=== PATIENT | male | born 1940 | race Hispanic/Latino ===

== ENCOUNTER 2018-05-14 12:26 | Inpatient (IN) | payer MEDICARE, BC ==
[2018-05-14] MEDS ORDERED: Sodium Chloride 0.9% 1,000 ML IV STA (13:33)
--- NOTE | 2018-05-14 13:51 | ED PDOC ---
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 Patient's so n reports that he found him this morning sleeping on the floor because he fell, hitting his head, and was unable to get up. Patient is only complaining of back pain. He does not use a wheelchair and has limited mobility. Patient is not on oxygen at home. PMD: Dr. Dorado in [facility] Neuro: Dr. Dixon - Fall Fall:Prior To Injury: Tripped Past Medical History Reviewed: Historical Data, Nursing Documentation, Vital Signs Vital Signs: Last Vital Signs Temp 99.9 F H 05/14/18 12:28 Pulse 114 H 05/14/18 12:28 Resp 16 05/14/18 12:28 BP 115/69 05/14/18 12:28 Pulse Ox 97 05/14/18 12:28 - Medical History PMH: Alzheimer's Disease, Dementia, Sleep Apnea - Surgical History Surgical History: No Surg Hx - Family History Family History: States: No Known Family Hx - Immunization History Hx Tetanus Toxoid Vaccination: No Hx Influenza Vaccination: No Hx Pneumococcal Vaccination: No - Home Medications Home Medications: Ambulatory Orders Medication Instructions Recorded Aspirin [Ecotrin] 325 mg PO DAILY 05/14/18 Donepezil [Aricept] 10 mg PO DAILY 05/14/18 Dutasteride [Avodart] 0.5 mg PO DAILY 05/14/18 Lisinopril [Zestril] 10 mg PO DAILY 05/14/18 Melatonin 5 mg PO HS 05/14/18 Memantine [Namenda] 10 mg PO Q12 05/14/18 Oxybutynin Chloride [Ditropan Xl] 5 mg PO DAILY 05/14/18 Simvastatin [Zocor] 40 mg PO HS 05/14/18 - Allergies Allergies/Adverse Reactions: Allergies Allergy/AdvReac Type Severity Reaction Status Date / Time No Known Allergies Allergy Verified 05/14/18 12:28 Review of Systems ROS Statement: Except As Marked, All Systems Reviewed And Found Negative Musculoskeletal: Positive for: Back Pain, Foot Pain (wound to left toe) Physical Exam - Reviewed Nursing Documentation Reviewed: Yes Vital Signs Reviewed: Yes - Physical Exam Appears: Positive for: No Acute Distress Head Exam: Positive for: ATRAUMATIC, NORMAL INSPECTION, NORMOCEPHALIC Skin: Positive for: Warm, Dry Eye Exam: Positive for: EOMI, PERRL, Other (discharge from left eye) Neck: Positive for: Supple, Decreased ROM (tenderness to spine). Negative for: Painless ROM Cardiovascular/Chest: Positive for: Regular Rate, Rhythm, Tachycardia (regular rhythm). Negative for: Murmur Respiratory: Positive for: Normal Breath Sounds. Negative for: Respiratory Distress Gastrointestinal/Abdominal: Positive for: Normal Exam, Soft. 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 Negative for: Motor/Sensory Deficits - Laboratory Results Result Diagrams: 05/19/18 05:10 05/19/18 05:10 - ECG O2 Sat by Pulse Oximetry: 97 (RA) Pulse Ox Interpretation: Normal Medical Decision Making Medical Decision Makin:32 Impression: fall, head injury, possible syncope Differential dxs include but are not limited to: intracranial bleeding, rhabdomyolysis, fracture, dehydration, OLIMPIA Initial Plan: --VBG --CT C-spine --CT Head --CT L-spine --EKG --BNP --BMP --CBC --Creatinine --Troponin --Urine dip --PT --PTT --CXR --NS IV 1,000 mls --Blood cx --Bilateral hip x-rays --Influenza AB --Urinary straight catheterization [address] head and cervical spine. Reviewed CXR and labs. 1620 Patient requires admission for multiple comorbidities and acute conditions: syncope and CHF for telemetry, rhabdomyolisis for IVF, cellulitis with sepsis for IV antibiotics. Scribe Attestation: Documented by Irene Raygoza, acting as a scribe Bakari Vargas MD Provider Scribe Attestation: All medical record entries made by the Scribe were at my direction and personally dictated by me. I have reviewed the chart and agree that the record accurately reflects my personal performance of the history, physical exam, medical decision making, and the department course for this patient. I have also personally directed, reviewed, and agree with the discharge instructions and disposition Disposition - Clinical Impression Clinical Impression: Syncope, CHF (congestive heart failure), Cellulitis, Rhabdomyolysis, Sepsis - Patient ED Disposition Is Patient to be Admitted: No Discussed With DrFransisco: Pk Ross Doctor Will See Patient In The: Hospital Counseled Patient/Family Regarding: Studies Performed, Diagnosis - Disposition Disposition Time: 16:20 Condition: FAIR - Pt Status Changed To: Hospital Disposition Of: Inpatient - Admit Certification Admit to Inpatient:: After my assessment, the patient will require hospitalization for at least two midnights. This is because of the severity of symptoms shown, intensity of services needed, and/or the medical risk in this patient being treated as an outpatient. - POA Present On Arrival: Falls Or Trauma, Pressure Ulcer
[2018-05-14 14:09] LABS: BASO # 0.1 K/uL (0.0-0.2); BASO % 0.7 % (0.0-2.0); EOS % 0.1 % (0.0-4.0); HEMOGLOBIN 14.2 g/dL (12.0-18.0); LYMPH # 2.6 K/uL (1.0-4.3); LYMPH % 14.1 % (20.0-40.0); MEAN CELL VOLUME 88.5 fl (80.0-94.0); MEAN CORPUSCULAR HEMOGLOBIN 29.2 pg (27.0-31.0); MEAN PLATELET VOLUME 8.5 fl (7.2-11.7); MONO # 0.8 K/uL (0.0-0.8); MONO % 4.4 % (0.0-10.0); NEUT # 14.8 K/uL (1.8-7.0); NEUT % 80.7 % (50.0-75.0); RBC 4.84 Mil/uL (4.40-5.90); RED CELL DISTRIBUTION WIDTH 14.6 % (11.5-14.5); WHITE BLOOD COUNT 18.3 K/uL (4.8-10.8)
[2018-05-14 14:18] LABS: VENOUS BLOOD GAS BASE EXCESS 2.3 mmol/L (0.0-2.0); VENOUS BLOOD GAS PCO2 39 mmHg (40-60); VENOUS BLOOD GAS PO2 33 mm/Hg (30-55); VENOUS BLOOD PH 7.44 (7.32-7.43)
[2018-05-14 14:19] LABS: BLOOD UREA NITROGEN 28 mg/dl (9-20); CALCIUM 8.8 mg/dL (8.4-10.2); GFR NON-AFRICAN AMERICAN 59
[2018-05-14 14:28] LABS: INR 1.3; PROTHROMBIN TIME 14.6 Seconds (9.8-13.1)
[2018-05-14 14:30] LABS: PARTIAL THROMBOPLASTIN TIME 37.7 Seconds (25.6-37.1)
[2018-05-14 14:31] LABS: B-TYPE NATRIURETIC PEPTIDE 5080 pg/ml (0-900)
--- NOTE | 2018-05-14 14:51 | RAD ---
Date of service: 05/14/2018 HISTORY: hypoxic COMPARISON: 04/29/2009. FINDINGS: LUNGS: There are low lung volumes. There is mild pulmonary venous congestion. PLEURA: No pleural effusions or pneumothorax. CARDIOVASCULAR: There is moderate cardiomegaly. No aortic atherosclerotic calcifications present. OSSEOUS STRUCTURES: Within normal limits for the patient's age. VISUALIZED UPPER ABDOMEN: Normal. OTHER FINDINGS: There is chronic elevation of the right hemidiaphragm. IMPRESSION: No active pulmonary disease. Low lung volumes may be related to poor inspiratory effort. Moderate cardiomegaly and pulmonary venous congestion.
--- NOTE | 2018-05-14 14:53 | RAD ---
PROCEDURE: Radiographs of the pelvis and bilateral hips HISTORY: fall back pain COMPARISON: None. TECHNIQUE: 2 views obtained. FINDINGS: BONES: The pelvic ring is intact. There is diffuse bone demineralization. There is no acute fracture or bone destruction. Bone alignment is normal. JOINTS: Mild degenerative osteoarthrosis in the hip joints and sacroiliac joints. There is mild osteitis pubis. SOFT TISSUES: Normal. OTHER FINDINGS: None. IMPRESSION: No acute displaced fracture or dislocation. Please note occult fractures cannot be excluded on plain radiographs. If there is a persistent clinical concern, an MRI of the hip may be performed for further evaluation.
--- NOTE | 2018-05-14 15:24 | CARD ---
APPROVED REPORT Date of service: 05/14/2018 EKG Measurement Heart [id number] <Conclusion> Sinus rhythm with premature atrial complexes Possible Inferior infarct, age undetermined Abnormal ECG
--- NOTE | 2018-05-14 15:32 | CT ---
Date of service: 05/14/2018 PROCEDURE: CT HEAD WITHOUT CONTRAST. HISTORY: head injury COMPARISON: None available. TECHNIQUE: Axial computed tomography images were obtained through the head/brain without intravenous contrast. Supplemental Coronal and Sagittal projections created and reviewed. Radiation dose: Total exam DLP = 897.93 mGy-cm. This CT exam was performed using one or more of the following dose reduction techniques: Automated exposure control, adjustment of the mA and/or kV according to patient size, and/or use of iterative reconstruction technique. FINDINGS: HEMORRHAGE: No intracranial hemorrhage. BRAIN: No mass effect or edema. Evidence of old left frontal parietal infarct with ipsilateral ventricular dilatation. Periventricular small these noted. VENTRICLES: Unremarkable. No hydrocephalus. CALVARIUM: Unremarkable. PARANASAL SINUSES: Unremarkable as visualized. No significant inflammatory changes. MASTOID AIR CELLS: Unremarkable as visualized. No inflammatory changes. OTHER FINDINGS: Calcified sebaceous cyst. An incidental finding. IMPRESSION: No acute intracranial abnormalities. No significant findings to account for the clinical presentation. Additional benign and/or incidental findings described above.
--- NOTE | 2018-05-14 15:36 | CT ---
Date of service: 05/14/2018 PROCEDURE: CT Cervical Spine without contrast HISTORY: Posttraumatic neck pain COMPARISON: None available. TECHNIQUE: Axial computed tomography images were obtained of the cervical spine without the use of intravenous contrast. Coronal and sagittal reformatted images were created and reviewed. Radiation dose: Total exam DLP = 343.72 mGy-cm. This CT exam was performed using one or more of the following dose reduction techniques: Automated exposure control, adjustment of the mA and/or kV according to patient size, and/or use of iterative reconstruction technique. FINDINGS: VERTEBRAE: No fracture. Normal alignment. No destructive bony lesion. DISCS/SPINAL CANAL/NEURAL FORAMINA: No significant central canal or neural foraminal stenosis. Multilevel degenerative change. No evidence of jumped or locked facet. PARASPINAL SOFT TISSUES: Unremarkable. OTHER FINDINGS: None. IMPRESSION: No acute findings related to/ accounting for the clinical presentation. Additional benign and/or incidental findings described above.
--- NOTE | 2018-05-14 15:39 | CT ---
Date of service: 05/14/2018 PROCEDURE: CT Lumbar Spine without contrast HISTORY: Posttraumatic low back pain. COMPARISON: None available. TECHNIQUE: Axial computed tomography images were obtained of the lumbar spine without the use of intravenous contrast. Coronal and sagittal reformatted images were created and reviewed. Radiation dose: Total exam DLP = 1378.97 mGy-cm. This CT exam was performed using one or more of the following dose reduction techniques: Automated exposure control, adjustment of the mA and/or kV according to patient size, and/or use of iterative reconstruction technique. FINDINGS: VERTEBRAE: Diffuse osteopenia. No fracture. Normal alignment. DISCS/SPINAL CANAL/NEURAL FORAMINA: L1-2: Unremarkable. L2-3: Unremarkable. L3-4: Unremarkable. L4-5: Unremarkable. L5-S1: Unremarkable. PARASPINAL SOFT TISSUES: Unremarkable. OTHER FINDINGS: Calcified nonaneurysmal abdominal aorta. IMPRESSION: No acute findings related to/ accounting for the clinical presentation.
[2018-05-14] MEDS ORDERED: Piperacillin/Tazobact 3.375 GM in Sodium Chloride 0.9% 100 ML IVPB STA (16:20)
[2018-05-14] MEDS ORDERED: Piperacillin/Tazobact 3.375 gm Inj IVPB ONE (16:34)
[2018-05-14] MEDS ORDERED: Pneumococcal 23-Valent Vaccine IM ONE (22:29)
[2018-05-15] MEDS: Levalbuterol 0.63 MG/3 ML Inhal Soln UD INH PRN (00:44)
[2018-05-15 05:26] LABS: HEMOGLOBIN 12.8 g/dL (12.0-18.0); MEAN CORPUSCULAR HEMOGLOBIN 28.9 pg (27.0-31.0); MEAN CORPUSCULAR HGB CONC 32.1 g/dL (33.0-37.0); RBC 4.44 Mil/uL (4.40-5.90); RED CELL DISTRIBUTION WIDTH 14.9 % (11.5-14.5); WHITE BLOOD COUNT 16.5 K/uL (4.8-10.8)
[2018-05-15 05:34] LABS: ALB/GLOB RATIO 0.9 (1.0-2.1); ALBUMIN 3.2 g/dL (3.5-5.0); ALT/SGPT 29 U/L (21-72); AST/SGOT 64 U/L (17-59); BLOOD UREA NITROGEN 32 mg/dl (9-20); CALCIUM 8.5 mg/dL (8.4-10.2); GFR NON-AFRICAN AMERICAN > 60; HDL CHOLESTEROL 31 MG/DL (30-70)
[2018-05-15 05:45] LABS: LDL CHOLESTEROL 37 mg/dL (0-129)
--- NOTE | 2018-05-15 06:21 | CP.PCM.HP ---
<Bhanu Bazan - Last Filed: 05/15/18 12:57> History of Present Illness - History of Present Illness History of Present Illness: Pt seen and examined at bedside with attending, Dr. Ross. 77 yo M with pmhx of CVA Alzheimer's dementia, and neuropathy presented to the ED with son for fall. Pt able to provide some history. He states he was walking and slipped. Denies weakness, dizziness. reports hitting R side of his head to a shelf and hitting his hip. Denies LOC, vomiting or loss of bowel/urinary movement. Denies recent falls. PMD: Dr. Dorado Neuro: Dr. Dixon Urology: Surg: bilateral cataracts, L foot Soc: Denies current smoking, alcohol or illicit drugs Famhx: HTN, DM Rx: med rec NKDA Present on Admission - Present on Admission Any Indicators Present on Admission: No History of Uncontrolled Diabetes: No Review of Systems - Constitutional Constitutional: Headache (Mild R side ache) - Cardiovascular Cardiovascular: absent: Chest Pain - Respiratory Respiratory: Wheezing. absent: Dyspnea - Gastrointestinal Gastrointestinal: absent: Abdominal Pain - Neurological Neurological: Abnormal Gait (2/2 L foot surgery), Confusion Past Patient History - Past Medical History & Family History Past Medical History?: Yes - Past Social History Smoking Status: Former Smoker Alcohol: None Drugs: Denies - CARDIAC Hx Hypercholesterolemia: Yes Hx Hypertension: Yes - PULMONARY Hx Sleep Apnea: Yes - NEUROLOGICAL Hx Alzheimer's Disease: Yes Hx Dementia: Yes Other/Comment: Post polio neuropathy - HEENT Hx HEENT Problems: No - RENAL Hx Chronic Kidney Disease: No - ENDOCRINE/METABOLIC Hx Endocrine Disorders: No - HEMATOLOGICAL/ONCOLOGICAL Hx Blood Disorders: No Hx AIDS: No Hx Human Immunodeficiency Virus (HIV): No - INTEGUMENTARY Hx Dermatological Problems: No - MUSCULOSKELETAL/RHEUMATOLOGICAL Hx Falls: Yes Other/Comment: Polio - GASTROINTESTINAL Hx Gastrointestinal Disorders: No - GENITOURINARY/GYNECOLOGICAL Hx Genitourinary Disorders: Yes Hx Prostate Problems: Yes - PSYCHIATRIC Hx Substance Use: No - SURGICAL HISTORY Hx Surgeries: Yes Hx Cataract Extraction: Yes Hx Tonsillectomy: Yes - ANESTHESIA Hx Anesthesia: Yes Hx Anesthesia Reactions: No Meds Allergies/Adverse Reactions: Allergies Allergy/AdvReac Type Severity Reaction Status Date / Time No Known Allergies Allergy Verified 05/14/18 12:28 Physical Exam - Constitutional Appears: No Acute Distress - Eye Exam Eye Exam: EOMI - ENT Exam ENT Exam: Mucous Membranes Moist - Respiratory Exam Respiratory Exam: Wheezes (expiratory). absent: Chest Wall Tenderness - Cardiovascular Exam Cardiovascular Exam: +S1, +S2 Additional comments: distant heart sounds - GI/Abdominal Exam GI & Abdominal Exam: Normal Bowel Sounds, Soft. absent: Tenderness - Neurological Exam Neurological exam: Abnormal Gait, Alert - Psychiatric Exam Psychiatric exam: Normal Affect, Normal Mood Results - Vital Signs Recent Vital Signs: Last Vital Signs Temp 99.5 F 05/15/18 06:07 Pulse 100 H 05/15/18 05:00 Resp 20 05/15/18 05:00 BP 145/82 05/15/18 05:00 Pulse Ox 93 L 05/15/18 05:00 - Labs Result Diagrams: 05/15/18 04:35 05/15/18 04:35 Labs: Laboratory Results - last 24 hr 05/14/18 05/14/18 05/14/18 14:00 14:05 14:05 WBC 18.3 H RBC 4.84 Hgb 14.2 Hct 42.9 MCV 88.5 MCH 29.2 MCHC 33.0 RDW 14.6 H Plt Count 230 MPV 8.5 Neut % (Auto) 80.7 H Lymph % (Auto) 14.1 L Cobb % (Auto) 4.4 Eos % (Auto) 0.1 Baso % (Auto) 0.7 Neut # (Auto) 14.8 H Lymph # (Auto) 2.6 Cobb # (Auto) 0.8 Eos # (Auto) 0.0 Baso # (Auto) 0.1 PT INR APTT pO2 VBG pH VBG pCO2 VBG HCO3 VBG Total CO2 VBG O2 Sat (Calc) VBG Base Excess VBG Potassium Glucose Lactate FiO2 Sodium 138 Potassium 4.2 Chloride 103 Carbon Dioxide 25 Anion Gap 14 BUN 28 H Creatinine 1.2 Est GFR ( Amer) > 60 Est GFR (Non-Af Amer) 59 Random Glucose 119 H Calcium 8.8 Total Bilirubin AST ALT Alkaline Phosphatase Total Creatine Kinase 1123 H Troponin I 0.0450 NT-Pro-B Natriuret Pep 5080 H Total Protein Albumin Globulin Albumin/Globulin Ratio Triglycerides Cholesterol LDL Cholesterol Direct HDL Cholesterol Thyroxine (T4) TSH 3rd Generation Venous Blood Potassium Influenza Typ A,B (EIA) Negative for flu a/b 05/14/18 05/14/18 05/15/18 14:05 14:10 04:35 WBC 16.5 H RBC 4.44 Hgb 12.8 Hct 39.9 MCV 90.0 MCH 28.9 MCHC 32.1 L RDW 14.9 H Plt Count 195 MPV Neut % (Auto) Lymph % (Auto) Cobb % (Auto) Eos % (Auto) Baso % (Auto) Neut # (Auto) Lymph # (Auto) Cobb # (Auto) Eos # (Auto) Baso # (Auto) PT 14.6 H INR 1.3 APTT 37.7 H pO2 33 VBG pH 7.44 H VBG pCO2 39 L VBG HCO3 25.9 VBG Total CO2 27.7 VBG O2 Sat (Calc) 69.1 H VBG Base Excess 2.3 H VBG Potassium 4.9 Glucose 119 H Lactate 2.3 H FiO2 21.0 Sodium 131.0 L Potassium Chloride 101.0 Carbon Dioxide Anion Gap BUN Creatinine Est GFR ( Amer) Est GFR (Non-Af Amer) Random Glucose Calcium Total Bilirubin AST ALT Alkaline Phosphatase Total Creatine Kinase Troponin I NT-Pro-B Natriuret Pep Total Protein Albumin Globulin Albumin/Globulin Ratio Triglycerides Cholesterol LDL Cholesterol Direct HDL Cholesterol Thyroxine (T4) TSH 3rd Generation Venous Blood Potassium 4.9 Influenza Typ A,B (EIA) 05/15/18 04:35 WBC RBC Hgb Hct MCV MCH MCHC RDW Plt Count MPV Neut % (Auto) Lymph % (Auto) Cobb % (Auto) Eos % (Auto) Baso % (Auto) Neut # (Auto) Lymph # (Auto) Cobb # (Auto) Eos # (Auto) Baso # (Auto) PT INR APTT pO2 VBG pH VBG pCO2 VBG HCO3 VBG Total CO2 VBG O2 Sat (Calc) VBG Base Excess VBG Potassium Glucose Lactate FiO2 Sodium 137 Potassium 3.7 Chloride 102 Carbon Dioxide 27 Anion Gap 12 BUN 32 H Creatinine 1.0 Est GFR ( Amer) > 60 Est GFR (Non-Af Amer) > 60 Random Glucose 111 H Calcium 8.5 Total Bilirubin 0.6 AST 64 H ALT 29 Alkaline Phosphatase 67 Total Creatine Kinase Troponin I NT-Pro-B Natriuret Pep Total Protein 7.0 Albumin 3.2 L Globulin 3.7 Albumin/Globulin Ratio 0.9 L Triglycerides 104 Cholesterol 93 LDL Cholesterol Direct 37 HDL Cholesterol 31 Thyroxine (T4) 6.84 TSH 3rd Generation 2.96 Venous Blood Potassium Influenza Typ A,B (EIA) Assessment & Plan - Assessment and Plan (Free Text) Assessment: Pt seen and examined at bedside with attending, Dr. Ross. 77 yo M with pmhx of CVA Alzheimer's dementia, and neuropathy admitted for possible syncopal episode resulting in fall, rhabdomyolysis and cellulitis. Plan: EKG: Sinus rhythm with premature atrial complexes; possible inferior infarct, age undetermined CXR: No active pulmonary disease. Low lung volumes may be related to poor inspiratory effort. Moderate cardiomegaly and pulmonary venous congestion. CT head: No acute intracranial abnormalities. No significant findings to account for the clinical presentation. CT cervical spine: No acute findings related to/accounting for the clinical presentation. CT lumbar spine: No acute findings related to/ accounting for the clinical presentation. Hip/Pelvis XRAY: No acute displaced fracture or dislocation. Please note occult fractures cannot be excluded on plain radiographs. If there is a persistent clinical concern, an MRI of the hip may be performed for further evaluation. Cellulitis -WBC: 18.3->16.5 -Podiatry consult: Dr. Ocampo: recs appreciated -Fever with T max of 101.2 at 05:16 on 05/15/2018; currently afebrile -IV Abx: Vanc (15 mg/kg q12); d/c Zosyn -ID: Dr. Madrid: recs appreciated -for pt once cleared by podiatry for ambulation and strengthening -f/u R LE duplex -f/u AM labs, blood culture, UA; vanc trough 30 min before 4th dose. Rhabdomyolysis -s/p fall -Total CK: 1123 s/p 1 L NS -BNP: 5080 -continue to monitor CHF -Possibly new dx; per son, pt did not have hx -BNP: 5080 -Cardiology: Dr. Guillen; further recs appreciated -lasix 40 iv once -I&O HTN -Lisinopril -monitor vitals Alzheimer's dementia -c/w donepezil, memantine BPH -c/w Dutasteride (brought from home), oxybutynin DVT prophylaxis -Lovenox Case and plan d/w Dr. Cody Bazan MD PGY-2 <Pk Ross - Last Filed: 05/16/18 12:45> Results - Vital Signs Recent Vital Signs: Last Vital Signs Temp 98.3 F 05/16/18 12:00 Pulse 85 05/16/18 12:00 Resp 18 05/16/18 12:00 BP 137/85 05/16/18 12:00 Pulse Ox 92 L 05/16/18 12:00 - Labs Result Diagrams: 05/16/18 04:20 05/16/18 04:20 Labs: Laboratory Results - last 24 hr 05/15/18 05/15/18 05/16/18 04:35 21:00 04:20 WBC 11.6 H RBC 4.29 L Hgb 12.8 Hct 38.7 MCV 90.1 MCH 29.7 MCHC 33.0 RDW 14.6 H Plt Count 207 Sodium Potassium Chloride Carbon Dioxide Anion Gap BUN Creatinine Est GFR ( Amer) Est GFR (Non-Af Amer) Random Glucose Hemoglobin A1c 5.5 Lactic Acid Calcium Total Bilirubin AST ALT Alkaline Phosphatase Total Creatine Kinase NT-Pro-B Natriuret Pep Total Protein Albumin Globulin Albumin/Globulin Ratio Urine Color Yellow Urine Clarity Slighty-cloudy Urine pH 5.0 Ur Specific Gonzales 1.026 Urine Protein 30 Urine Glucose (UA) Neg Urine Ketones Negative Urine Blood Moderate Urine Nitrate Negative Urine Bilirubin Negative Urine Urobilinogen 0.2-1.0 Ur Leukocyte Esterase Neg Urine RBC (Auto) 12 H Urine Microscopic WBC 2 Hyaline Casts 0-2 Vancomycin Trough 05/16/18 05/16/18 05/16/18 04:20 08:30 09:40 WBC RBC Hgb Hct MCV MCH MCHC RDW Plt Count Sodium 139 Potassium 4.1 Chloride 104 Carbon Dioxide 30 Anion Gap 9 L BUN 31 H Creatinine 0.9 Est GFR ( Amer) > 60 Est GFR (Non-Af Amer) > 60 Random Glucose 96 Hemoglobin A1c Lactic Acid Calcium 8.3 L Total Bilirubin 0.4 AST 105 H D ALT 59 Alkaline Phosphatase 72 Total Creatine Kinase 625 H NT-Pro-B Natriuret Pep 718 Total Protein 6.4 Albumin 3.0 L Globulin 3.4 Albumin/Globulin Ratio 0.9 L Urine Color Urine Clarity Urine pH Ur Specific Gonzales Urine Protein Urine Glucose (UA) Urine Ketones Urine Blood Urine Nitrate Urine Bilirubin Urine Urobilinogen Ur Leukocyte Esterase Urine RBC (Auto) Urine Microscopic WBC Hyaline Casts Vancomycin Trough 9.6 05/16/18 09:40 WBC RBC Hgb Hct MCV MCH MCHC RDW Plt Count Sodium Potassium Chloride Carbon Dioxide Anion Gap BUN Creatinine Est GFR ( Amer) Est GFR (Non-Af Amer) Random Glucose Hemoglobin A1c Lactic Acid 2.1 Calcium Total Bilirubin AST ALT Alkaline Phosphatase Total Creatine Kinase NT-Pro-B Natriuret Pep Total Protein Albumin Globulin Albumin/Globulin Ratio Urine Color Urine Clarity Urine pH Ur Specific Gonzales Urine Protein Urine Glucose (UA) Urine Ketones Urine Blood Urine Nitrate Urine Bilirubin Urine Urobilinogen Ur Leukocyte Esterase Urine RBC (Auto) Urine Microscopic WBC Hyaline Casts Vancomycin Trough Assessment & Plan - Assessment and Plan (Free Text) Plan: Patient was personally seen and examined by me in rounds with residents. Available labs and diagnostic data reviewed. Case, Patient's condition and management plan discussed with residents in rounds. Agree with resident's progress note. Plan: As ordered.
[2018-05-15] MEDS: Enoxaparin 40 mg Syringe SC SCH (09:56)
[2018-05-15] MEDS ORDERED: Piperacillin/Tazobact 3.375 GM in Sodium Chloride 0.9% 100 ML IVPB SCH (10:00)
[2018-05-15] MEDS: Aspirin 325 mg EC Tablets PO SCH (10:01)
--- NOTE | 2018-05-15 10:02 | CP.PCM.CON ---
History of Present Illness - History of Present Illness History of Present Illness: Infectious Disease Consultation Note- ASked to see this patient at the request of for right leg cellulitis. HPI- History obtained by patient's son who is at his bedside and the medical chart and some by the rebeca himself. Pt. seen and examined with the resident . Rebeca is a 77 year old male with PMH of CVA, dementia and polio as a child with neuropathy of the feet who was found by his son at the floor of the athroom and apparently pt. had tripped and fallen and was brought by ambulance here for further evaluation. It is unknown if the patient had lost consciousness at any time , he states he does not remember. As per his son he is found to have CHF upon this admission and as per son pt. has had this redness on his Right lower extremity for many months and his doctor as outpatient had given him cream for dry skin. He also has had h/o Left plantar open wopund/ulcer in 2017 that was infected and he was on IV antibiotics as per his son at [facility] and f/u closely with podiatry for this and that ulcer has healed and closed but he has been having another one on the plantar side of the left great toe for which he follows up twice a week with his cyber defense forensics analyst for wound care and dressing changes. pt. states that he ahs neuropathy adn hence he does not feel when he gets these ulcers adn hence they get bigger and sometimes infected because he walks on them. He denies any chills but stata has felt feverish at home from time to time. He denies any injury to his right Lower extremity. denies any pain in RLE. denies any nausea or vomiting, denies any cough or sob, denies any chest pain, denies any dysurea, denies any diarrhea PMHx: CVA, dementia, neuropathy PSHx: cataracts, L foot surgery All: NKDA Review of Systems - Review of Systems Review of Systems: ROS- as stated in HPI Past Patient History - Past Medical History & Family History Past Medical History?: Yes - Past Social History Smoking Status: Former Smoker Home Situation {Lives}: With Family - CARDIAC Hx Hypercholesterolemia: Yes Hx Hypertension: Yes - PULMONARY Hx Sleep Apnea: Yes - NEUROLOGICAL Hx Alzheimer's Disease: Yes Hx Dementia: Yes Other/Comment: Post polio neuropathy - HEENT Hx HEENT Problems: No - RENAL Hx Chronic Kidney Disease: No - ENDOCRINE/METABOLIC Hx Endocrine Disorders: No - HEMATOLOGICAL/ONCOLOGICAL Hx Blood Disorders: No - INTEGUMENTARY Hx Dermatological Problems: No - MUSCULOSKELETAL/RHEUMATOLOGICAL Hx Falls: Yes Other/Comment: Polio - GASTROINTESTINAL Hx Gastrointestinal Disorders: No - GENITOURINARY/GYNECOLOGICAL Hx Genitourinary Disorders: Yes Hx Prostate Problems: Yes - PSYCHIATRIC Hx Substance Use: No - SURGICAL HISTORY Hx Surgeries: Yes Hx Cataract Extraction: Yes Hx Tonsillectomy: Yes - ANESTHESIA Hx Anesthesia: Yes Hx Anesthesia Reactions: No Meds Allergies/Adverse Reactions: Allergies Allergy/AdvReac Type Severity Reaction Status Date / Time No Known Allergies Allergy Verified 05/14/18 12:28 - Medications Medications: Current Medications Acetaminophen (Tylenol 325mg Tab) 650 mg PO Q6 PRN PRN Reason: Fever >100.4 F Last Admin: 05/15/18 05:16 Dose: 650 mg Aspirin (Ecotrin) 325 mg PO DAILY [facility] Atorvastatin Calcium (Lipitor) 20 mg PO HS [facility] Last Admin: 05/14/18 22:57 Dose: 20 mg Donepezil HCl (Aricept) 10 mg PO DAILY [facility] Enoxaparin Sodium (Lovenox) 40 mg SC DAILY [facility]; Protocol Home Med (Dutasteride [Avodart]) 0.5 mg PO DAILY [facility] Piperacillin Sod/Tazobactam (Sod 3.375 gm/ Sodium Chloride) 100 mls @ 100 mls/hr IVPB Q6 [facility]; Protocol Vancomycin HCl 1 gm/ Sodium (Chloride) 250 mls @ 166.667 mls/hr IVPB Q12 [facility]; Protocol Levalbuterol HCl (Xopenex) 0.63 mg INH RQ8 PRN PRN Reason: Shortness of Breath Last Admin: 05/15/18 00:44 Dose: 0.63 mg Lisinopril (Zestril) 10 mg PO DAILY [facility] Memantine (Namenda) 10 mg PO Q12 [facility] Oxybutynin Chloride (Ditropan Tab) 5 mg PO DAILY [facility] Physical Exam - Constitutional Appears: No Acute Distress - Head Exam Head Exam: ATRAUMATIC - Eye Exam Eye Exam: EOMI - ENT Exam ENT Exam: Normal Oropharynx - Neck Exam Neck exam: Positive for: Full Rom - Respiratory Exam Respiratory Exam: Clear to Auscultation Bilateral, NORMAL BREATHING PATTERN - Cardiovascular Exam Cardiovascular Exam: RRR, +S1, +S2 - GI/Abdominal Exam GI & Abdominal Exam: Normal Bowel Sounds, Soft Additional comments: NT, ND - Extremities Exam Additional comments: Right lower extremity from above the ankle to right below patellar region with demarcated erythema both anterior and posterior region, warm tot ouch no dsicharge no tenderness to palpation minimal edema left plantar large hallux with small ulcerated region, no discharge, the heel ulcer is closed and healed - Neurological Exam Neurological exam: Alert Additional comments: oriented x 2 Results - Vital Signs Recent Vital Signs: Last Vital Signs Temp 98.6 F 05/15/18 07:39 Pulse 93 H 05/15/18 07:39 Resp 18 05/15/18 07:39 BP 134/78 05/15/18 07:39 Pulse Ox 92 L 05/15/18 07:39 - Labs Result Diagrams: 05/15/18 04:35 05/15/18 04:35 Labs: Laboratory Results - last 24 hr 05/14/18 05/14/18 05/14/18 14:00 14:05 14:05 WBC 18.3 H RBC 4.84 Hgb 14.2 Hct 42.9 MCV 88.5 MCH 29.2 MCHC 33.0 RDW 14.6 H Plt Count 230 MPV 8.5 Neut % (Auto) 80.7 H Lymph % (Auto) 14.1 L [place] % (Auto) 4.4 Eos % (Auto) 0.1 Baso % (Auto) 0.7 Neut # (Auto) 14.8 H Lymph # (Auto) 2.6 [place] # (Auto) 0.8 Eos # (Auto) 0.0 Baso # (Auto) 0.1 PT INR APTT pO2 VBG pH VBG pCO2 VBG HCO3 VBG Total CO2 VBG O2 Sat (Calc) VBG Base Excess VBG Potassium Glucose Lactate FiO2 Sodium 138 Potassium 4.2 Chloride 103 Carbon Dioxide 25 Anion Gap 14 BUN 28 H Creatinine 1.2 Est GFR ( Amer) > 60 Est GFR (Non-Af Amer) 59 Random Glucose 119 H Calcium 8.8 Total Bilirubin AST ALT Alkaline Phosphatase Total Creatine Kinase 1123 H Troponin I 0.0450 NT-Pro-B Natriuret Pep 5080 H Total Protein Albumin Globulin Albumin/Globulin Ratio Triglycerides Cholesterol LDL Cholesterol Direct HDL Cholesterol Vitamin B12 Thyroxine (T4) TSH 3rd Generation Venous Blood Potassium Influenza Typ A,B (EIA) Negative for flu a/b 05/14/18 05/14/18 05/15/18 14:05 14:10 04:35 WBC 16.5 H RBC 4.44 Hgb 12.8 Hct 39.9 MCV 90.0 MCH 28.9 MCHC 32.1 L RDW 14.9 H Plt Count 195 MPV Neut % (Auto) Lymph % (Auto) [place] % (Auto) Eos % (Auto) Baso % (Auto) Neut # (Auto) Lymph # (Auto) [place] # (Auto) Eos # (Auto) Baso # (Auto) PT 14.6 H INR 1.3 APTT 37.7 H pO2 33 VBG pH 7.44 H VBG pCO2 39 L VBG HCO3 25.9 VBG Total CO2 27.7 VBG O2 Sat (Calc) 69.1 H VBG Base Excess 2.3 H VBG Potassium 4.9 Glucose 119 H Lactate 2.3 H FiO2 21.0 Sodium 131.0 L Potassium Chloride 101.0 Carbon Dioxide Anion Gap BUN Creatinine Est GFR ( Amer) Est GFR (Non-Af Amer) Random Glucose Calcium Total Bilirubin AST ALT Alkaline Phosphatase Total Creatine Kinase Troponin I NT-Pro-B Natriuret Pep Total Protein Albumin Globulin Albumin/Globulin Ratio Triglycerides Cholesterol LDL Cholesterol Direct HDL Cholesterol Vitamin B12 Thyroxine (T4) TSH 3rd Generation Venous Blood Potassium 4.9 Influenza Typ A,B (EIA) 05/15/18 04:35 WBC RBC Hgb Hct MCV MCH MCHC RDW Plt Count MPV Neut % (Auto) Lymph % (Auto) [place] % (Auto) Eos % (Auto) Baso % (Auto) Neut # (Auto) Lymph # (Auto) [place] # (Auto) Eos # (Auto) Baso # (Auto) PT INR APTT pO2 VBG pH VBG pCO2 VBG HCO3 VBG Total CO2 VBG O2 Sat (Calc) VBG Base Excess VBG Potassium Glucose Lactate FiO2 Sodium 137 Potassium 3.7 Chloride 102 Carbon Dioxide 27 Anion Gap 12 BUN 32 H Creatinine 1.0 Est GFR ( Amer) > 60 Est GFR (Non-Af Amer) > 60 Random Glucose 111 H Calcium 8.5 Total Bilirubin 0.6 AST 64 H ALT 29 Alkaline Phosphatase 67 Total Creatine Kinase Troponin I NT-Pro-B Natriuret Pep Total Protein 7.0 Albumin 3.2 L Globulin 3.7 Albumin/Globulin Ratio 0.9 L Triglycerides 104 Cholesterol 93 LDL Cholesterol Direct 37 HDL Cholesterol 31 Vitamin B12 392 Thyroxine (T4) 6.84 TSH 3rd Generation 2.96 Venous Blood Potassium Influenza Typ A,B (EIA) Assessment & Plan - Assessment and Plan (Free Text) Assessment: A/P- 77 year old male with PMH of CVA, 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 afebrile has leukocytosis PLan- check blood cx x2. check RLE US r/o DVT. advise to start pt. on vancomycin to treat the RLE cellulitis. advise 15 mg/kg BID. keep trough <15. advise podiatry for left hallux wound acre management. Also advise to keep RLE elevated while in bed or sitting. All labs and imaging and chart notes were reviewed. All above d/w patient and his son and all their questions were answered and they agree with above plan of care. Thank you for allowing me to take part in the care of this patient.
--- NOTE | 2018-05-15 11:56 | CP.PCM.CON ---
History of Present Illness - History of Present Illness History of Present Illness: 77 yo M admitted after a fall, tripped and fell He states he was walking and slipped. Denies weakness, dizziness. reports hitting R side of his head to a shelf and hitting his hip. Denies LOC, vomiting or loss of bowel/urinary movement. Denies recent falls. Denies Vertigo/dizzy spells Cardiology Consult called for elevated BNP 5080 EKG: NSR w/ APC PMH: s/p CVA Post- Polio Neuropathy Alzheimer's Disease HTN Hyperlipidemia Denies past Cardiac Hx ? Hx of CHF in 2013 Past Patient History - Past Medical History & Family History Past Medical History?: Yes - Past Social History Smoking Status: Former Smoker Alcohol: None Drugs: Denies - CARDIAC Hx Hypercholesterolemia: Yes Hx Hypertension: Yes - PULMONARY Hx Sleep Apnea: Yes - NEUROLOGICAL Hx Alzheimer's Disease: Yes Hx Dementia: Yes Other/Comment: Post polio neuropathy - HEENT Hx HEENT Problems: No - RENAL Hx Chronic Kidney Disease: No - ENDOCRINE/METABOLIC Hx Endocrine Disorders: No - HEMATOLOGICAL/ONCOLOGICAL Hx Blood Disorders: No Hx AIDS: No Hx Human Immunodeficiency Virus (HIV): No - INTEGUMENTARY Hx Dermatological Problems: No - MUSCULOSKELETAL/RHEUMATOLOGICAL Hx Falls: Yes Other/Comment: Polio - GASTROINTESTINAL Hx Gastrointestinal Disorders: No - GENITOURINARY/GYNECOLOGICAL Hx Genitourinary Disorders: Yes Hx Prostate Problems: Yes - PSYCHIATRIC Hx Substance Use: No - SURGICAL HISTORY Hx Surgeries: Yes Hx Cataract Extraction: Yes Hx Tonsillectomy: Yes - ANESTHESIA Hx Anesthesia: Yes Hx Anesthesia Reactions: No Meds Allergies/Adverse Reactions: Allergies Allergy/AdvReac Type Severity Reaction Status Date / Time No Known Allergies Allergy Verified 05/14/18 12:28 - Medications Medications: Current Medications Acetaminophen (Tylenol 325mg Tab) 650 mg PO Q6 PRN PRN Reason: Fever >100.4 F Last Admin: 05/15/18 05:16 Dose: 650 mg Aspirin (Ecotrin) 325 mg PO DAILY [facility] Last Admin: 05/15/18 10:01 Dose: 325 mg Atorvastatin Calcium (Lipitor) 20 mg PO HS [facility] Last Admin: 05/14/18 22:57 Dose: 20 mg Donepezil HCl (Aricept) 10 mg PO DAILY [facility] Last Admin: 05/15/18 09:55 Dose: 10 mg Enoxaparin Sodium (Lovenox) 40 mg SC DAILY [facility]; Protocol Last Admin: 05/15/18 09:56 Dose: 40 mg Home Med (Dutasteride [Avodart]) 0.5 mg PO DAILY [facility] Piperacillin Sod/Tazobactam (Sod 3.375 gm/ Sodium Chloride) 100 mls @ 100 mls/hr IVPB Q6 [facility]; Protocol Last Admin: 05/15/18 10:00 Dose: 100 mls/hr Vancomycin HCl 1 gm/ Sodium (Chloride) 250 mls @ 166.667 mls/hr IVPB Q12 [facility]; Protocol Last Admin: 05/15/18 09:58 Dose: 166.667 mls/hr Levalbuterol HCl (Xopenex) 0.63 mg INH RQ8 PRN PRN Reason: Shortness of Breath Last Admin: 05/15/18 00:44 Dose: 0.63 mg Lisinopril (Zestril) 10 mg PO DAILY [facility] Last Admin: 05/15/18 09:59 Dose: 10 mg Memantine (Namenda) 10 mg PO Q12 [facility] Last Admin: 05/15/18 09:57 Dose: 10 mg Oxybutynin Chloride (Ditropan Tab) 5 mg PO DAILY [facility] Last Admin: 05/15/18 09:55 Dose: 5 mg Results - Vital Signs Recent Vital Signs: Last Vital Signs Temp 98.6 F 05/15/18 07:39 Pulse 93 H 05/15/18 09:59 Resp 18 05/15/18 07:39 BP 134/78 05/15/18 10:03 Pulse Ox 92 L 05/15/18 07:39 - Labs Result Diagrams: 05/16/18 04:20 05/16/18 04:20 Labs: Laboratory Results - last 24 hr 05/14/18 05/14/18 05/14/18 14:00 14:05 14:05 WBC 18.3 H RBC 4.84 Hgb 14.2 Hct 42.9 MCV 88.5 MCH 29.2 MCHC 33.0 RDW 14.6 H Plt Count 230 MPV 8.5 Neut % (Auto) 80.7 H Lymph % (Auto) 14.1 L [place] % (Auto) 4.4 Eos % (Auto) 0.1 Baso % (Auto) 0.7 Neut # (Auto) 14.8 H Lymph # (Auto) 2.6 [place] # (Auto) 0.8 Eos # (Auto) 0.0 Baso # (Auto) 0.1 PT INR APTT pO2 VBG pH VBG pCO2 VBG HCO3 VBG Total CO2 VBG O2 Sat (Calc) VBG Base Excess VBG Potassium Glucose Lactate FiO2 Sodium 138 Potassium 4.2 Chloride 103 Carbon Dioxide 25 Anion Gap 14 BUN 28 H Creatinine 1.2 Est GFR ( Amer) > 60 Est GFR (Non-Af Amer) 59 Random Glucose 119 H Calcium 8.8 Total Bilirubin AST ALT Alkaline Phosphatase Total Creatine Kinase 1123 H Troponin I 0.0450 NT-Pro-B Natriuret Pep 5080 H Total Protein Albumin Globulin Albumin/Globulin Ratio Triglycerides Cholesterol LDL Cholesterol Direct HDL Cholesterol Vitamin B12 Thyroxine (T4) TSH 3rd Generation Venous Blood Potassium Influenza Typ A,B (EIA) Negative for flu a/b 05/14/18 05/14/18 05/15/18 14:05 14:10 04:35 WBC 16.5 H RBC 4.44 Hgb 12.8 Hct 39.9 MCV 90.0 MCH 28.9 MCHC 32.1 L RDW 14.9 H Plt Count 195 MPV Neut % (Auto) Lymph % (Auto) [place] % (Auto) Eos % (Auto) Baso % (Auto) Neut # (Auto) Lymph # (Auto) [place] # (Auto) Eos # (Auto) Baso # (Auto) PT 14.6 H INR 1.3 APTT 37.7 H pO2 33 VBG pH 7.44 H VBG pCO2 39 L VBG HCO3 25.9 VBG Total CO2 27.7 VBG O2 Sat (Calc) 69.1 H VBG Base Excess 2.3 H VBG Potassium 4.9 Glucose 119 H Lactate 2.3 H FiO2 21.0 Sodium 131.0 L Potassium Chloride 101.0 Carbon Dioxide Anion Gap BUN Creatinine Est GFR ( Amer) Est GFR (Non-Af Amer) Random Glucose Calcium Total Bilirubin AST ALT Alkaline Phosphatase Total Creatine Kinase Troponin I NT-Pro-B Natriuret Pep Total Protein Albumin Globulin Albumin/Globulin Ratio Triglycerides Cholesterol LDL Cholesterol Direct HDL Cholesterol Vitamin B12 Thyroxine (T4) TSH 3rd Generation Venous Blood Potassium 4.9 Influenza Typ A,B (EIA) 05/15/18 04:35 WBC RBC Hgb Hct MCV MCH MCHC RDW Plt Count MPV Neut % (Auto) Lymph % (Auto) [place] % (Auto) Eos % (Auto) Baso % (Auto) Neut # (Auto) Lymph # (Auto) [place] # (Auto) Eos # (Auto) Baso # (Auto) PT INR APTT pO2 VBG pH VBG pCO2 VBG HCO3 VBG Total CO2 VBG O2 Sat (Calc) VBG Base Excess VBG Potassium Glucose Lactate FiO2 Sodium 137 Potassium 3.7 Chloride 102 Carbon Dioxide 27 Anion Gap 12 BUN 32 H Creatinine 1.0 Est GFR ( Amer) > 60 Est GFR (Non-Af Amer) > 60 Random Glucose 111 H Calcium 8.5 Total Bilirubin 0.6 AST 64 H ALT 29 Alkaline Phosphatase 67 Total Creatine Kinase Troponin I NT-Pro-B Natriuret Pep Total Protein 7.0 Albumin 3.2 L Globulin 3.7 Albumin/Globulin Ratio 0.9 L Triglycerides 104 Cholesterol 93 LDL Cholesterol Direct 37 HDL Cholesterol 31 Vitamin B12 392 Thyroxine (T4) 6.84 TSH 3rd Generation 2.96 Venous Blood Potassium Influenza Typ A,B (EIA) Assessment & Plan (1) Acute systolic heart failure Assessment and Plan: Suggest starting Lasix 40mg IV daily Status: Acute
--- NOTE | 2018-05-15 12:40 | CP.PCM.CON ---
History of Present Illness - History of Present Illness History of Present Illness: Podiatry consult note - Dr. Cobb 77M seen and evaluated at bedside for RLE cellulitis and L hallux diabetic chronic ulceration. Resting comfortably. States that he has had the redness in his right leg for months and that it was first on his left leg but has resolved. States that he has had an ulcer on his left big toe for a long time and sees Dr. Thurston as his boot turner weekly. Denies pain to either site. States he has not noticed any pus or drainage from his left big toe and denies any wounds to his right LE. Denies n/v/f/c today and has no other acute complaints. PMHx: CVA, dementia, neuropathy PSHx: cataracts, L foot surgery All: NKDA Past Patient History - Past Medical History & Family History Past Medical History?: Yes - Past Social History Smoking Status: Former Smoker Alcohol: None Drugs: Denies - CARDIAC Hx Hypercholesterolemia: Yes Hx Hypertension: Yes - PULMONARY Hx Sleep Apnea: Yes - NEUROLOGICAL Hx Alzheimer's Disease: Yes Hx Dementia: Yes Other/Comment: Post polio neuropathy - HEENT Hx HEENT Problems: No - RENAL Hx Chronic Kidney Disease: No - ENDOCRINE/METABOLIC Hx Endocrine Disorders: No - HEMATOLOGICAL/ONCOLOGICAL Hx Blood Disorders: No Hx AIDS: No Hx Human Immunodeficiency Virus (HIV): No - INTEGUMENTARY Hx Dermatological Problems: No - MUSCULOSKELETAL/RHEUMATOLOGICAL Hx Falls: Yes Other/Comment: Polio - GASTROINTESTINAL Hx Gastrointestinal Disorders: No - GENITOURINARY/GYNECOLOGICAL Hx Genitourinary Disorders: Yes Hx Prostate Problems: Yes - PSYCHIATRIC Hx Substance Use: No - SURGICAL HISTORY Hx Surgeries: Yes Hx Cataract Extraction: Yes Hx Tonsillectomy: Yes - ANESTHESIA Hx Anesthesia: Yes Hx Anesthesia Reactions: No Meds Allergies/Adverse Reactions: Allergies Allergy/AdvReac Type Severity Reaction Status Date / Time No Known Allergies Allergy Verified 05/14/18 12:28 - Medications Medications: Current Medications Acetaminophen (Tylenol 325mg Tab) 650 mg PO Q6 PRN PRN Reason: Fever >100.4 F Last Admin: 05/15/18 05:16 Dose: 650 mg Aspirin (Ecotrin) 325 mg PO DAILY [facility] Last Admin: 05/15/18 10:01 Dose: 325 mg Atorvastatin Calcium (Lipitor) 20 mg PO HS [facility] Last Admin: 05/14/18 22:57 Dose: 20 mg Donepezil HCl (Aricept) 10 mg PO DAILY [facility] Last Admin: 05/15/18 09:55 Dose: 10 mg Enoxaparin Sodium (Lovenox) 40 mg SC DAILY [facility]; Protocol Last Admin: 05/15/18 09:56 Dose: 40 mg Home Med (Dutasteride [Avodart]) 0.5 mg PO DAILY [facility] Vancomycin HCl 1 gm/ Sodium (Chloride) 250 mls @ 166.667 mls/hr IVPB Q12 [facility]; Protocol Last Admin: 05/15/18 09:58 Dose: 166.667 mls/hr Levalbuterol HCl (Xopenex) 0.63 mg INH RQ8 PRN PRN Reason: Shortness of Breath Last Admin: 05/15/18 00:44 Dose: 0.63 mg Lisinopril (Zestril) 10 mg PO DAILY [facility] Last Admin: 05/15/18 09:59 Dose: 10 mg Memantine (Namenda) 10 mg PO Q12 [facility] Last Admin: 05/15/18 09:57 Dose: 10 mg Oxybutynin Chloride (Ditropan Tab) 5 mg PO DAILY [facility] Last Admin: 05/15/18 09:55 Dose: 5 mg Physical Exam - Constitutional Appears: Non-toxic - Head Exam Head Exam: ATRAUMATIC - Extremities Exam Additional comments: LE focused exam VASC: DP palpable on L, not palpable on R; PT palpable b/l; cap refill <3 seconds to all digits; temp gradient wnl; mild edema noted to b/l LE; hair growth absent DERM: left hallux diabetic chronic ulceration noted, granular base, no drainage appreciate, hyperkeratotic wound margin, no tunneling or tracking, no erythema or streaking, no clinical signs of infection; right LE erythema at the mid leg, circumferential, does not extend to foot ORTHO: no pain on palpation of left hallux wound or right LE erythema; previous surgery to left foot noted NEURO: gross and protective sensation diminished b/l - Neurological Exam Neurological exam: Alert, Oriented x3 - Psychiatric Exam Psychiatric exam: Normal Affect Results - Vital Signs Recent Vital Signs: Last Vital Signs Temp 97.9 F 05/15/18 12:00 Pulse 86 05/15/18 12:00 Resp 18 05/15/18 12:00 BP 131/68 05/15/18 12:00 Pulse Ox 92 L 05/15/18 12:00 - Labs Result Diagrams: 05/15/18 04:35 05/15/18 04:35 Labs: Laboratory Results - last 24 hr 05/14/18 05/14/18 05/14/18 14:00 14:05 14:05 WBC 18.3 H RBC 4.84 Hgb 14.2 Hct 42.9 MCV 88.5 MCH 29.2 MCHC 33.0 RDW 14.6 H Plt Count 230 MPV 8.5 Neut % (Auto) 80.7 H Lymph % (Auto) 14.1 L [place] % (Auto) 4.4 Eos % (Auto) 0.1 Baso % (Auto) 0.7 Neut # (Auto) 14.8 H Lymph # (Auto) 2.6 [place] # (Auto) 0.8 Eos # (Auto) 0.0 Baso # (Auto) 0.1 PT INR APTT pO2 VBG pH VBG pCO2 VBG HCO3 VBG Total CO2 VBG O2 Sat (Calc) VBG Base Excess VBG Potassium Glucose Lactate FiO2 Sodium 138 Potassium 4.2 Chloride 103 Carbon Dioxide 25 Anion Gap 14 BUN 28 H Creatinine 1.2 Est GFR ( Amer) > 60 Est GFR (Non-Af Amer) 59 Random Glucose 119 H Calcium 8.8 Total Bilirubin AST ALT Alkaline Phosphatase Total Creatine Kinase 1123 H Troponin I 0.0450 NT-Pro-B Natriuret Pep 5080 H Total Protein Albumin Globulin Albumin/Globulin Ratio Triglycerides Cholesterol LDL Cholesterol Direct HDL Cholesterol Vitamin B12 Thyroxine (T4) TSH 3rd Generation Venous Blood Potassium Influenza Typ A,B (EIA) Negative for flu a/b 05/14/18 05/14/18 05/15/18 14:05 14:10 04:35 WBC 16.5 H RBC 4.44 Hgb 12.8 Hct 39.9 MCV 90.0 MCH 28.9 MCHC 32.1 L RDW 14.9 H Plt Count 195 MPV Neut % (Auto) Lymph % (Auto) [place] % (Auto) Eos % (Auto) Baso % (Auto) Neut # (Auto) Lymph # (Auto) [place] # (Auto) Eos # (Auto) Baso # (Auto) PT 14.6 H INR 1.3 APTT 37.7 H pO2 33 VBG pH 7.44 H VBG pCO2 39 L VBG HCO3 25.9 VBG Total CO2 27.7 VBG O2 Sat (Calc) 69.1 H VBG Base Excess 2.3 H VBG Potassium 4.9 Glucose 119 H Lactate 2.3 H FiO2 21.0 Sodium 131.0 L Potassium Chloride 101.0 Carbon Dioxide Anion Gap BUN Creatinine Est GFR ( Amer) Est GFR (Non-Af Amer) Random Glucose Calcium Total Bilirubin AST ALT Alkaline Phosphatase Total Creatine Kinase Troponin I NT-Pro-B Natriuret Pep Total Protein Albumin Globulin Albumin/Globulin Ratio Triglycerides Cholesterol LDL Cholesterol Direct HDL Cholesterol Vitamin B12 Thyroxine (T4) TSH 3rd Generation Venous Blood Potassium 4.9 Influenza Typ A,B (EIA) 05/15/18 04:35 WBC RBC Hgb Hct MCV MCH MCHC RDW Plt Count MPV Neut % (Auto) Lymph % (Auto) [place] % (Auto) Eos % (Auto) Baso % (Auto) Neut # (Auto) Lymph # (Auto) [place] # (Auto) Eos # (Auto) Baso # (Auto) PT INR APTT pO2 VBG pH VBG pCO2 VBG HCO3 VBG Total CO2 VBG O2 Sat (Calc) VBG Base Excess VBG Potassium Glucose Lactate FiO2 Sodium 137 Potassium 3.7 Chloride 102 Carbon Dioxide 27 Anion Gap 12 BUN 32 H Creatinine 1.0 Est GFR ( Amer) > 60 Est GFR (Non-Af Amer) > 60 Random Glucose 111 H Calcium 8.5 Total Bilirubin 0.6 AST 64 H ALT 29 Alkaline Phosphatase 67 Total Creatine Kinase Troponin I NT-Pro-B Natriuret Pep Total Protein 7.0 Albumin 3.2 L Globulin 3.7 Albumin/Globulin Ratio 0.9 L Triglycerides 104 Cholesterol 93 LDL Cholesterol Direct 37 HDL Cholesterol 31 Vitamin B12 392 Thyroxine (T4) 6.84 TSH 3rd Generation 2.96 Venous Blood Potassium Influenza Typ A,B (EIA) Assessment & Plan - Assessment and Plan (Free Text) Assessment: 77M with 1) RLE cellulitis 2) left hallux diabetic chronic ulceration Plan: Patient seen and evaluated Discussed with Dr. Reza GRANADO, WBC 16.5 Continue abx per ID Left hallux ulceration cleansed with sterile saline and dressed with wet to dry sterile dressing RLE left open to air L foot x-ray ordered - pending Bactroban ordered Will continue to follow with L hallux dressing changes Q3D Upon d/c can follow with his outpatient boot turner Thank you for the consult - Date & Time Date: 05/15/18 Time: 12:47
--- NOTE | 2018-05-15 14:54 | IP.NPCORE ---
Heart Failure Core Measure XU Inhibitor Prescribed: Yes Assessment/Plan - Assessment and Plan (Free Text) Assessment: echocardiogram on 05/15/18 pending Diuretics furosemide 40mg iv daily
[2018-05-15] MEDS: Mupirocin 2% Oint 1GM UD TOP SCH (16:41)
--- NOTE | 2018-05-15 19:33 | CARD ---
APPROVED REPORT Date of service: 05/15/2018 EXAM: Two-dimensional and M-mode echocardiogram with Doppler and color Doppler. Other Information Quality : FairRhythm : NSR Technically limited study due to Poor Window INDICATION Congestive Heart Failure 2D DIMENSIONS IVSd1.05 (0.7-1.1cm)LVDd4.33 (3.9-5.9cm) PWd0.94 (0.7-1.1cm)IVSs1.11 (0.8-1.2cm) LVDs4.18 (2.5-4.0cm)FS (%) 3.6 % PWs1.10 (0.8-1.2cm) Aortic Valve AoV Peak Cpsznmcr730.9cm/sAoV VTI25.2cmAO Peak GR.10mmHg LVOT Peak Xziektjj396.1cm/sLVOT VTI27.60cmAO Mean GR.6mmHg Mitral Valve MV E Rjkxyocj83.1cm/sMV DECEL [id number] A Ymxgxlot962.3cm/s MV OQF61kiQ/A ratio0.6MVA (PHT)3.33cm2 TDI E/Lateral E'0.0E/Medial E'0.0 Tricuspid Valve TR Peak Koxbcscx864wn/sRAP GEGWXUTN86doWmTM Peak Gr.29mmHg [id number] LEFT VENTRICLE The left ventricle is normal size. There is normal left ventricular wall thickness. The LV systolic function is mildly impaired. The estimated ejection fraction is 45-50% There is mild anterolateral wall hypokinesis. Transmitral Doppler flow pattern is Grade I-abnormal relaxation pattern. No left ventricle thrombus noted on this study. There is no ventricular septal defect visualized. There is no left ventricular aneurysm. There is no mass noted in the left ventricle. RIGHT VENTRICLE The right ventricle is normal size. There is normal right ventricular wall thickness. The right ventricular systolic function is normal. ATRIA The left atrium is moderately dilated. The right atrium size is normal. The interatrial septum is intact with no evidence for an atrial septal defect. AORTIC VALVE The aortic valve is normal in structure. No aortic regurgitation is present. There is no aortic valvular stenosis. There is no aortic valvular vegetation. MITRAL VALVE The mitral valve is normal in structure. There is no evidence of mitral valve prolapse. There is no mitral valve stenosis. There is mild mitral valve regurgitation noted. TRICUSPID VALVE The tricuspid valve is normal in structure. There is mild tricuspid valve regurgitation noted. RVSP is calculated at 35 mm Hg. There is no tricuspid valve prolapse or vegetation. There is no tricuspid valve stenosis. PULMONIC VALVE The pulmonary valve is normal in structure. There is no pulmonic valvular regurgitation. There is no pulmonic valvular stenosis. GREAT VESSELS The aortic root is normal in size. The ascending aorta is normal in size. The pulmonary artery is normal. The IVC is normal in size and collapses >50% with inspiration. PERICARDIAL EFFUSION There is no pericardial effusion. There is no pleural effusion. <Conclusion> Technically difficult study. The LV systolic function is mildly impaired. The estimated ejection fraction is 45-50% There is mild anterolateral wall hypokinesis. Transmitral Doppler flow pattern is Grade I-abnormal relaxation pattern. The left atrium is moderately dilated. There is mild mitral valve regurgitation noted. There is mild tricuspid valve regurgitation noted. RVSP is calculated at 35 mm Hg.
[2018-05-15 21:46] LABS: URINE BILIRUBIN NEGATIVE (NEGATIVE); URINE BLOOD MODERATE (NEGATIVE); URINE CLARITY SLIGHTY-CLOUDY (Clear); URINE COLOR YELLOW (YELLOW); URINE GLUCOSE (UA) NEG (NEGATIVE); URINE HYALINE CAST 0-2 /hpf (0-2); URINE LEUKOCYTE ESTERASE NEG Leu/uL (Negative); URINE PROTEIN 30 mg/dL (NEGATIVE); URINE UROBILINOGEN 0.2-1.0 mg/dL (0.2-1.0)
[2018-05-16] MEDS: Levalbuterol 0.63 MG/3 ML Inhal Soln UD INH PRN (02:04)
[2018-05-16 06:12] LABS: HEMOGLOBIN 12.8 g/dL (12.0-18.0); MEAN CELL VOLUME 90.1 fl (80.0-94.0); MEAN CORPUSCULAR HEMOGLOBIN 29.7 pg (27.0-31.0); RBC 4.29 Mil/uL (4.40-5.90); RED CELL DISTRIBUTION WIDTH 14.6 % (11.5-14.5); WHITE BLOOD COUNT 11.6 K/uL (4.8-10.8)
[2018-05-16 06:30] LABS: ALB/GLOB RATIO 0.9 (1.0-2.1); ALT/SGPT 59 U/L (21-72); AST/SGOT 105 U/L (17-59); BLOOD UREA NITROGEN 31 mg/dl (9-20); CALCIUM 8.3 mg/dL (8.4-10.2); GFR NON-AFRICAN AMERICAN > 60
--- NOTE | 2018-05-16 06:33 | CP.PCM.PN ---
<Bhanu Bazan - Last Filed: 05/16/18 10:36> Subjective - Date & Time of Evaluation Date of Evaluation: 05/16/18 Time of Evaluation: 06:33 - Subjective Subjective: Pt seen and examined at bedside with attending, Dr. Ross. Pt denies significant overnight events. Afebrile, tolerating PO diet. Enjoying PT. Objective - Vital Signs/Intake and Output Vital Signs (last 24 hours): Temp Pulse Resp BP Pulse Ox 99 F 100 H 18 121/86 96 05/16/18 04:59 05/16/18 04:59 05/16/18 04:59 05/16/18 04:59 05/16/18 04:59 Intake and Output: 05/15/18 05/16/18 18:59 06:59 Intake Total 110 Output Total 300 Balance -190 - Medications Medications: Current Medications Acetaminophen (Tylenol 325mg Tab) 650 mg PO Q6 PRN PRN Reason: Fever >100.4 F Last Admin: 05/15/18 05:16 Dose: 650 mg Aspirin (Ecotrin) 325 mg PO DAILY [facility] Last Admin: 05/15/18 10:01 Dose: 325 mg Atorvastatin Calcium (Lipitor) 20 mg PO HS [facility] Last Admin: 05/15/18 21:04 Dose: 20 mg Donepezil HCl (Aricept) 10 mg PO DAILY [facility] Last Admin: 05/15/18 09:55 Dose: 10 mg Enoxaparin Sodium (Lovenox) 40 mg SC DAILY [facility]; Protocol Last Admin: 05/15/18 09:56 Dose: 40 mg Furosemide (Lasix) 40 mg IV DAILY [facility] Home Med (Dutasteride [Avodart]) 0.5 mg PO DAILY [facility] Last Admin: 05/15/18 12:59 Dose: 0.5 mg Vancomycin HCl 1,500 mg/ (Sodium Chloride) 500 mls @ 250 mls/hr IVPB Q12H [facility]; Protocol Last Admin: 05/15/18 20:48 Dose: 250 mls/hr Levalbuterol HCl (Xopenex) 0.63 mg INH RQ8 PRN PRN Reason: Shortness of Breath Last Admin: 05/16/18 02:04 Dose: 0.63 mg Lisinopril (Zestril) 10 mg PO DAILY [facility] Last Admin: 05/15/18 09:59 Dose: 10 mg Memantine (Namenda) 10 mg PO Q12 [facility] Last Admin: 05/15/18 20:57 Dose: 10 mg Mupirocin (Bactroban Ointment) 1 applic TOP BID [facility] Last Admin: 05/15/18 16:41 Dose: 1 applic Oxybutynin Chloride (Ditropan Tab) 5 mg PO DAILY [facility] Last Admin: 05/15/18 09:55 Dose: 5 mg - Labs Labs: 05/15/18 04:35 05/16/18 04:20 PT 14.6 Seconds (9.8-13.1) H 05/14/18 14:05 INR 1.3 05/14/18 14:05 APTT 37.7 Seconds (25.6-37.1) H 05/14/18 14:05 - Constitutional Appears: No Acute Distress - Eye Exam Eye Exam: EOMI - ENT Exam ENT Exam: Mucous Membranes Moist - Respiratory Exam Respiratory Exam: Clear to Ausculation Bilateral, Wheezes (mild expiratory), NORMAL BREATHING PATTERN - Cardiovascular Exam Cardiovascular Exam: REGULAR RHYTHM, +S1, +S2 - GI/Abdominal Exam GI & Abdominal Exam: Soft, Normal Bowel Sounds. absent: Tenderness - Extremities Exam Additional comments: R lower extremity cellulitis marked for progression. L hallux bandaged and dressed. - Neurological Exam Neurological Exam: Alert, Awake, CN II-XII Intact - Psychiatric Exam Psychiatric exam: Normal Affect, Normal Mood Assessment and Plan (1) Cellulitis of leg, right Status: Acute (2) Rhabdomyolysis Status: Acute (3) HTN (hypertension) Status: Acute (4) Alzheimer's dementia Status: Acute (5) BPH (benign prostatic hyperplasia) Status: Acute (6) Acute systolic heart failure Status: Acute - Assessment and Plan (Free Text) Assessment: Pt seen and examined at bedside with attending, Dr. Ross. 77 yo M with pmhx of CVA Alzheimer's dementia, and neuropathy admitted for possible syncopal episode resulting in fall, rhabdomyolysis and cellulitis. Plan: EKG: Sinus rhythm with premature atrial complexes; possible inferior infarct, age undetermined ECHO: Technically difficult study. The LV systolic function is mildly impaired. The estimated ejection fraction is 45-50% There is mild anterolateral wall hypokinesis. Transmitral Doppler flow pattern is Grade I-abnormal relaxation pattern. The left atrium is moderately dilated. There is mild mitral valve regurgitation noted. There is mild tricuspid valve regurgitation noted. RVSP is calculated at 35 mm Hg. CXR: No active pulmonary disease. Low lung volumes may be related to poor inspiratory effort. Moderate cardiomegaly and pulmonary venous congestion. CT head: No acute intracranial abnormalities. No significant findings to account for the clinical presentation. CT cervical spine: No acute findings related to/accounting for the clinical presentation. CT lumbar spine: No acute findings related to/ accounting for the clinical presentation. Hip/Pelvis XRAY: No acute displaced fracture or dislocation. Please note occult fractures cannot be excluded on plain radiographs. If there is a persistent clinical concern, an MRI of the hip may be performed for further evaluation. XR L Foot: Superficial appearing soft tissue ulceration great toe without osseous changes here to suggest osteomyelitis. Postsurgical changes elsewhere. Multifocal arthrosis Cellulitis -WBC: 18.3->16.5->11.6 -hgba1c: 5.5 -Podiatry consult: Dr. Ocampo: recs appreciated; continue current mangement, dressing changes q3D -Fever with T max of 101.2 at 05:16 on 05/15/2018; currently afebrile -IV Abx: Vanc (15 mg/kg q12); d/c Zosyn -Vanc trough 05/16/2018: 9.6 continue with goal <15 -ID: Dr. Madrid: further recs appreciated -BCX: NG x 24 hrs (x2) -PT: ambulation, strengthening -f/u R LE duplex -f/u AM labs, blood culture Rhabdomyolysis -s/p fall; improving -Total CK: 1123 s/p 1 L NS -> 625 -BNP: 5080 -continue to monitor CHF -Possibly new dx; per son, pt did not have hx -BNP: 5080 -Cardiology: Dr. Guillen: IV lasix 40 daily -I&O HTN -controlled -Lisinopril -monitor vitals Alzheimer's dementia -c/w donepezil, memantine BPH -c/w Dutasteride (brought from home), oxybutynin DVT prophylaxis -Lovenox -Pt encourged ambulation as tolerated with PT Case and plan d/w Dr. Cody Bazan MD PGY-2 <Pk Ross - Last Filed: 05/16/18 12:42> Objective - Vital Signs/Intake and Output Vital Signs (last 24 hours): Temp Pulse Resp BP Pulse Ox 98.3 F 85 18 137/85 92 L 05/16/18 12:00 05/16/18 12:00 05/16/18 12:00 05/16/18 12:00 05/16/18 12:00 - Medications Medications: Current Medications Acetaminophen (Tylenol 325mg Tab) 650 mg PO Q6 PRN PRN Reason: Fever >100.4 F Last Admin: 05/15/18 05:16 Dose: 650 mg Aspirin (Ecotrin) 325 mg PO DAILY [facility] Last Admin: 05/16/18 08:39 Dose: 325 mg Atorvastatin Calcium (Lipitor) 20 mg PO HS [facility] Last Admin: 05/15/18 21:04 Dose: 20 mg Donepezil HCl (Aricept) 10 mg PO DAILY [facility] Last Admin: 05/16/18 08:36 Dose: 10 mg Enoxaparin Sodium (Lovenox) 40 mg SC DAILY [facility]; Protocol Last Admin: 05/16/18 08:40 Dose: 40 mg Furosemide (Lasix) 40 mg IV DAILY [facility] Last Admin: 05/16/18 08:39 Dose: 40 mg Home Med (Dutasteride [Avodart]) 0.5 mg PO DAILY [facility] Last Admin: 05/16/18 08:39 Dose: 0.5 mg Vancomycin HCl 1,500 mg/ (Sodium Chloride) 500 mls @ 250 mls/hr IVPB Q12H [facility]; Protocol Last Admin: 05/16/18 09:12 Dose: 250 mls/hr Levalbuterol HCl (Xopenex) 0.63 mg INH RQ8 PRN PRN Reason: Shortness of Breath Last Admin: 05/16/18 02:04 Dose: 0.63 mg Lisinopril (Zestril) 10 mg PO DAILY [facility] Last Admin: 05/16/18 08:41 Dose: 10 mg Memantine (Namenda) 10 mg PO Q12 [facility] Last Admin: 05/16/18 08:41 Dose: 10 mg Metoprolol Succinate (Toprol Xl) 25 mg PO DAILY [facility] Last Admin: 05/16/18 11:31 Dose: 25 mg Mupirocin (Bactroban Ointment) 1 applic TOP BID [facility] Last Admin: 05/16/18 08:45 Dose: 1 applic Oxybutynin Chloride (Ditropan Tab) 5 mg PO DAILY [facility] Last Admin: 05/16/18 08:38 Dose: 5 mg - Labs Labs: 05/16/18 04:20 05/16/18 04:20 PT 14.6 Seconds (9.8-13.1) H 05/14/18 14:05 INR 1.3 05/14/18 14:05 APTT 37.7 Seconds (25.6-37.1) H 05/14/18 14:05 Assessment and Plan - Assessment and Plan (Free Text) Plan: Patient was personally seen and examined by me in rounds with residents. Available labs and diagnostic data reviewed. Case, Patient's condition and management plan discussed with residents in rounds. Agree with resident's progress note. Plan: As ordered.
--- NOTE | 2018-05-16 08:01 | RAD ---
Date of service: 05/15/2018 PROCEDURE: Left Foot Radiographs. HISTORY: left hallux diabetic ulceration COMPARISON: None. TECHNIQUE: 3 views obtained. FINDINGS: BONES: Marked generalized osteopenia. Prominent hallux valgus orientation. No fracture or gross periosteal reaction appreciated. There is cystic and hypertrophic osseous changes about the partially resected distal 5th metatarsal and slight ill definition to distal 4th metatarsal. And 2nd metatarsal. The cortex appears more clearly defined along the partially resected 3rd distal metatarsal. The 2nd metatarsal is also partially resected. The 3rd proximal phalanx is partially resected. JOINTS: First tarsal-metatarsal moderate osteoarthrosis noted. Limited visualization of the 3rd DIP joint due to hallux valgus/flexion deformity here. All proximal interphalangeal joint spaces appear narrowed. Sesamoid hallux osteoarthrosis. Midfoot osteoarthrosis present. SOFT TISSUES: Superficial soft tissue changes compatible with the history of diabetic ulceration the left hallux is noted. Here no gross cortical interruption of the distal phalanx are proximal phalanx is noted. Here no periosteal reaction is seen. OTHER FINDINGS: None. IMPRESSION: Superficial appearing soft tissue ulceration great toe without osseous changes here to suggest osteomyelitis. Postsurgical changes elsewhere. Multifocal arthrosis
[2018-05-16] MEDS: Aspirin 325 mg EC Tablets PO SCH (08:39)
[2018-05-16] MEDS: Enoxaparin 40 mg Syringe SC SCH (08:40)
[2018-05-16] MEDS: Mupirocin 2% Oint 1GM UD TOP SCH ×2 (08:45→18:30)
[2018-05-16] MEDS ORDERED: Metoprolol Succinate 25 mg XL Tab PO SCH (09:00)
--- NOTE | 2018-05-16 09:16 | CP.PCM.PN ---
Subjective - Date & Time of Evaluation Date of Evaluation: 05/16/18 Time of Evaluation: 09:15 - Subjective Subjective: ID Note- Patient seen and examined today. denies any fever or chills. Objective - Vital Signs/Intake and Output Vital Signs (last 24 hours): Temp Pulse Resp BP Pulse Ox 99.5 F 90 18 129/79 91 L 05/16/18 08:00 05/16/18 08:41 05/16/18 08:00 05/16/18 08:41 05/16/18 08:00 - Medications Medications: Current Medications Acetaminophen (Tylenol 325mg Tab) 650 mg PO Q6 PRN PRN Reason: Fever >100.4 F Last Admin: 05/15/18 05:16 Dose: 650 mg Aspirin (Ecotrin) 325 mg PO DAILY [facility] Last Admin: 05/16/18 08:39 Dose: 325 mg Atorvastatin Calcium (Lipitor) 20 mg PO HS [facility] Last Admin: 05/15/18 21:04 Dose: 20 mg Donepezil HCl (Aricept) 10 mg PO DAILY [facility] Last Admin: 05/16/18 08:36 Dose: 10 mg Enoxaparin Sodium (Lovenox) 40 mg SC DAILY [facility]; Protocol Last Admin: 05/16/18 08:40 Dose: 40 mg Furosemide (Lasix) 40 mg IV DAILY [facility] Last Admin: 05/16/18 08:39 Dose: 40 mg Home Med (Dutasteride [Avodart]) 0.5 mg PO DAILY [facility] Last Admin: 05/16/18 08:39 Dose: 0.5 mg Vancomycin HCl 1,500 mg/ (Sodium Chloride) 500 mls @ 250 mls/hr IVPB Q12H [facility]; Protocol Last Admin: 05/16/18 09:12 Dose: 250 mls/hr Levalbuterol HCl (Xopenex) 0.63 mg INH RQ8 PRN PRN Reason: Shortness of Breath Last Admin: 05/16/18 02:04 Dose: 0.63 mg Lisinopril (Zestril) 10 mg PO DAILY [facility] Last Admin: 05/16/18 08:41 Dose: 10 mg Memantine (Namenda) 10 mg PO Q12 [facility] Last Admin: 05/16/18 08:41 Dose: 10 mg Metoprolol Succinate (Toprol Xl) 25 mg PO DAILY [facility] Mupirocin (Bactroban Ointment) 1 applic TOP BID [facility] Last Admin: 05/16/18 08:45 Dose: 1 applic Oxybutynin Chloride (Ditropan Tab) 5 mg PO DAILY [facility] Last Admin: 05/16/18 08:38 Dose: 5 mg - Labs Labs: - Additional Findings Additional findings: - Constitutional Appears: No Acute Distress - Head Exam Head Exam: ATRAUMATIC - Eye Exam Eye Exam: EOMI - ENT Exam ENT Exam: Normal Oropharynx - Neck Exam Neck exam: Positive for: Full Rom - Respiratory Exam Respiratory Exam: Clear to Auscultation Bilateral, NORMAL BREATHING PATTERN - Cardiovascular Exam Cardiovascular Exam: RRR, +S1, +S2 - GI/Abdominal Exam GI & Abdominal Exam: Normal Bowel Sounds, Soft Additional comments: NT, ND - Extremities Exam Additional comments: Right lower extremity from above the ankle to right below patellar region with demarcated erythema still present but slightly less warm no discharge no tenderness to palpation minimal edema left plantar large hallux with small ulcerated region, no discharge, the heel ulcer is closed and healed - Neurological Exam Neurological exam: Alert Additional comments: oriented x 3 Laboratory Results - last 72 hr 05/14/18 05/14/18 05/14/18 14:00 14:05 14:05 WBC 18.3 H RBC 4.84 Hgb 14.2 Hct 42.9 MCV 88.5 MCH 29.2 MCHC 33.0 RDW 14.6 H Plt Count 230 MPV 8.5 Neut % (Auto) 80.7 H Lymph % (Auto) 14.1 L Crowley % (Auto) 4.4 Eos % (Auto) 0.1 Baso % (Auto) 0.7 Neut # (Auto) 14.8 H Lymph # (Auto) 2.6 Crowley # (Auto) 0.8 Eos # (Auto) 0.0 Baso # (Auto) 0.1 PT INR APTT pO2 VBG pH VBG pCO2 VBG HCO3 VBG Total CO2 VBG O2 Sat (Calc) VBG Base Excess VBG Potassium Glucose Lactate FiO2 Sodium 138 Potassium 4.2 Chloride 103 Carbon Dioxide 25 Anion Gap 14 BUN 28 H Creatinine 1.2 Est GFR ( Amer) > 60 Est GFR (Non-Af Amer) 59 Random Glucose 119 H Hemoglobin A1c Lactic Acid Calcium 8.8 Total Bilirubin AST ALT Alkaline Phosphatase Total Creatine Kinase 1123 H Troponin I 0.0450 NT-Pro-B Natriuret Pep 5080 H Total Protein Albumin Globulin Albumin/Globulin Ratio Triglycerides Cholesterol LDL Cholesterol Direct HDL Cholesterol Vitamin B12 Thyroxine (T4) TSH 3rd Generation Venous Blood Potassium Urine Color Urine Clarity Urine pH Ur Specific [place] Urine Protein Urine Glucose (UA) Urine Ketones Urine Blood Urine Nitrate Urine Bilirubin Urine Urobilinogen Ur Leukocyte Esterase Urine RBC (Auto) Urine Microscopic WBC Hyaline Casts Vancomycin Trough Influenza Typ A,B (EIA) Negative for flu a/b 05/14/18 05/14/18 05/15/18 14:05 14:10 04:35 WBC 16.5 H RBC 4.44 Hgb 12.8 Hct 39.9 MCV 90.0 MCH 28.9 MCHC 32.1 L RDW 14.9 H Plt Count 195 MPV Neut % (Auto) Lymph % (Auto) Crowley % (Auto) Eos % (Auto) Baso % (Auto) Neut # (Auto) Lymph # (Auto) Crowley # (Auto) Eos # (Auto) Baso # (Auto) PT 14.6 H INR 1.3 APTT 37.7 H pO2 33 VBG pH 7.44 H VBG pCO2 39 L VBG HCO3 25.9 VBG Total CO2 27.7 VBG O2 Sat (Calc) 69.1 H VBG Base Excess 2.3 H VBG Potassium 4.9 Glucose 119 H Lactate 2.3 H FiO2 21.0 Sodium 131.0 L Potassium Chloride 101.0 Carbon Dioxide Anion Gap BUN Creatinine Est GFR ( Amer) Est GFR (Non-Af Amer) Random Glucose Hemoglobin A1c Lactic Acid Calcium Total Bilirubin AST ALT Alkaline Phosphatase Total Creatine Kinase Troponin I NT-Pro-B Natriuret Pep Total Protein Albumin Globulin Albumin/Globulin Ratio Triglycerides Cholesterol LDL Cholesterol Direct HDL Cholesterol Vitamin B12 Thyroxine (T4) TSH 3rd Generation Venous Blood Potassium 4.9 Urine Color Urine Clarity Urine pH Ur Specific [place] Urine Protein Urine Glucose (UA) Urine Ketones Urine Blood Urine Nitrate Urine Bilirubin Urine Urobilinogen Ur Leukocyte Esterase Urine RBC (Auto) Urine Microscopic WBC Hyaline Casts Vancomycin Trough Influenza Typ A,B (EIA) 05/15/18 05/15/18 05/15/18 04:35 04:35 21:00 WBC RBC Hgb Hct MCV MCH MCHC RDW Plt Count MPV Neut % (Auto) Lymph % (Auto) Crowley % (Auto) Eos % (Auto) Baso % (Auto) Neut # (Auto) Lymph # (Auto) Crowley # (Auto) Eos # (Auto) Baso # (Auto) PT INR APTT pO2 VBG pH VBG pCO2 VBG HCO3 VBG Total CO2 VBG O2 Sat (Calc) VBG Base Excess VBG Potassium Glucose Lactate FiO2 Sodium 137 Potassium 3.7 Chloride 102 Carbon Dioxide 27 Anion Gap 12 BUN 32 H Creatinine 1.0 Est GFR ( Amer) > 60 Est GFR (Non-Af Amer) > 60 Random Glucose 111 H Hemoglobin A1c 5.5 Lactic Acid Calcium 8.5 Total Bilirubin 0.6 AST 64 H ALT 29 Alkaline Phosphatase 67 Total Creatine Kinase Troponin I NT-Pro-B Natriuret Pep Total Protein 7.0 Albumin 3.2 L Globulin 3.7 Albumin/Globulin Ratio 0.9 L Triglycerides 104 Cholesterol 93 LDL Cholesterol Direct 37 HDL Cholesterol 31 Vitamin B12 392 Thyroxine (T4) 6.84 TSH 3rd Generation 2.96 Venous Blood Potassium Urine Color Yellow Urine Clarity Slighty-cloudy Urine pH 5.0 Ur Specific [place] 1.026 Urine Protein 30 Urine Glucose (UA) Neg Urine Ketones Negative Urine Blood Moderate Urine Nitrate Negative Urine Bilirubin Negative Urine Urobilinogen 0.2-1.0 Ur Leukocyte Esterase Neg Urine RBC (Auto) 12 H Urine Microscopic WBC 2 Hyaline Casts 0-2 Vancomycin Trough Influenza Typ A,B (EIA) 05/16/18 05/16/18 05/16/18 04:20 04:20 08:30 WBC 11.6 H RBC 4.29 L Hgb 12.8 Hct 38.7 MCV 90.1 MCH 29.7 MCHC 33.0 RDW 14.6 H Plt Count 207 MPV Neut % (Auto) Lymph % (Auto) Crowley % (Auto) Eos % (Auto) Baso % (Auto) Neut # (Auto) Lymph # (Auto) Crowley # (Auto) Eos # (Auto) Baso # (Auto) PT INR APTT pO2 VBG pH VBG pCO2 VBG HCO3 VBG Total CO2 VBG O2 Sat (Calc) VBG Base Excess VBG Potassium Glucose Lactate FiO2 Sodium 139 Potassium 4.1 Chloride 104 Carbon Dioxide 30 Anion Gap 9 L BUN 31 H Creatinine 0.9 Est GFR ( Amer) > 60 Est GFR (Non-Af Amer) > 60 Random Glucose 96 Hemoglobin A1c Lactic Acid Calcium 8.3 L Total Bilirubin 0.4 AST 105 H D ALT 59 Alkaline Phosphatase 72 Total Creatine Kinase 625 H Troponin I NT-Pro-B Natriuret Pep Total Protein 6.4 Albumin 3.0 L Globulin 3.4 Albumin/Globulin Ratio 0.9 L Triglycerides Cholesterol LDL Cholesterol Direct HDL Cholesterol Vitamin B12 Thyroxine (T4) TSH 3rd Generation Venous Blood Potassium Urine Color Urine Clarity Urine pH Ur Specific [place] Urine Protein Urine Glucose (UA) Urine Ketones Urine Blood Urine Nitrate Urine Bilirubin Urine Urobilinogen Ur Leukocyte Esterase Urine RBC (Auto) Urine Microscopic WBC Hyaline Casts Vancomycin Trough 9.6 Influenza Typ A,B (EIA) 05/16/18 05/16/18 09:40 09:40 WBC RBC Hgb Hct MCV MCH MCHC RDW Plt Count MPV Neut % (Auto) Lymph % (Auto) Crowley % (Auto) Eos % (Auto) Baso % (Auto) Neut # (Auto) Lymph # (Auto) Crowley # (Auto) Eos # (Auto) Baso # (Auto) PT INR APTT pO2 VBG pH VBG pCO2 VBG HCO3 VBG Total CO2 VBG O2 Sat (Calc) VBG Base Excess VBG Potassium Glucose Lactate FiO2 Sodium Potassium Chloride Carbon Dioxide Anion Gap BUN Creatinine Est GFR ( Amer) Est GFR (Non-Af Amer) Random Glucose Hemoglobin A1c Lactic Acid 2.1 Calcium Total Bilirubin AST ALT Alkaline Phosphatase Total Creatine Kinase Troponin I NT-Pro-B Natriuret Pep 718 Total Protein Albumin Globulin Albumin/Globulin Ratio Triglycerides Cholesterol LDL Cholesterol Direct HDL Cholesterol Vitamin B12 Thyroxine (T4) TSH 3rd Generation Venous Blood Potassium Urine Color Urine Clarity Urine pH Ur Specific [place] Urine Protein Urine Glucose (UA) Urine Ketones Urine Blood Urine Nitrate Urine Bilirubin Urine Urobilinogen Ur Leukocyte Esterase Urine RBC (Auto) Urine Microscopic WBC Hyaline Casts Vancomycin Trough Influenza Typ A,B (EIA) Microbiology 05/15/18 17:35 Blood-Venous Blood Culture - Preliminary NO GROWTH AFTER 24 HOURS 05/14/18 14:05 Blood-Venous Blood Culture - Preliminary NO GROWTH AFTER 48 HOURS 05/14/18 14:05 Blood-Venous Blood Culture - Preliminary NO GROWTH AFTER 48 HOURS Assessment and Plan (1) Cellulitis of leg, right Status: Acute - Assessment and Plan (Free Text) Assessment: A/P- 77 year old male with PMH of CVA, 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 afebrile leukocytosis trending down. blood cx- neg x 3 RLE US- no DVT as per report PLan- advise to continue pt. on vancomycin to treat the RLE cellulitis.day #2 advise 15 mg/kg BID. keep trough <15. advise podiatry for left hallux wound acre management. Also advise to keep RLE elevated while in bed or sitting.
--- NOTE | 2018-05-16 09:42 | CP.PCM.PN ---
Subjective - Date & Time of Evaluation Date of Evaluation: 05/16/18 Time of Evaluation: 09:39 - Subjective Subjective: Podiatry progress note - Dr. Cobb 77M seen and evaluated at bedside for RLE cellulitis and L hallux ulceration. Resting comfortably. Denies pain to LE. Reports mild burning in his right leg. Denies n/v/f/c and has no other acute complaints. Objective - Vital Signs/Intake and Output Vital Signs (last 24 hours): Temp Pulse Resp BP Pulse Ox 99.5 F 90 18 129/79 91 L 05/16/18 08:00 05/16/18 08:41 05/16/18 08:00 05/16/18 08:41 05/16/18 08:00 - Medications Medications: Current Medications Acetaminophen (Tylenol 325mg Tab) 650 mg PO Q6 PRN PRN Reason: Fever >100.4 F Last Admin: 05/15/18 05:16 Dose: 650 mg Aspirin (Ecotrin) 325 mg PO DAILY [facility] Last Admin: 05/16/18 08:39 Dose: 325 mg Atorvastatin Calcium (Lipitor) 20 mg PO HS [facility] Last Admin: 05/15/18 21:04 Dose: 20 mg Donepezil HCl (Aricept) 10 mg PO DAILY [facility] Last Admin: 05/16/18 08:36 Dose: 10 mg Enoxaparin Sodium (Lovenox) 40 mg SC DAILY [facility]; Protocol Last Admin: 05/16/18 08:40 Dose: 40 mg Furosemide (Lasix) 40 mg IV DAILY [facility] Last Admin: 05/16/18 08:39 Dose: 40 mg Home Med (Dutasteride [Avodart]) 0.5 mg PO DAILY [facility] Last Admin: 05/16/18 08:39 Dose: 0.5 mg Vancomycin HCl 1,500 mg/ (Sodium Chloride) 500 mls @ 250 mls/hr IVPB Q12H [facility]; Protocol Last Admin: 05/16/18 09:12 Dose: 250 mls/hr Levalbuterol HCl (Xopenex) 0.63 mg INH RQ8 PRN PRN Reason: Shortness of Breath Last Admin: 05/16/18 02:04 Dose: 0.63 mg Lisinopril (Zestril) 10 mg PO DAILY [facility] Last Admin: 05/16/18 08:41 Dose: 10 mg Memantine (Namenda) 10 mg PO Q12 [facility] Last Admin: 05/16/18 08:41 Dose: 10 mg Metoprolol Succinate (Toprol Xl) 25 mg PO DAILY [facility] Mupirocin (Bactroban Ointment) 1 applic TOP BID [facility] Last Admin: 05/16/18 08:45 Dose: 1 applic Oxybutynin Chloride (Ditropan Tab) 5 mg PO DAILY [facility] Last Admin: 05/16/18 08:38 Dose: 5 mg - Labs Labs: 05/16/18 04:20 05/16/18 04:20 PT 14.6 Seconds (9.8-13.1) H 05/14/18 14:05 INR 1.3 05/14/18 14:05 APTT 37.7 Seconds (25.6-37.1) H 05/14/18 14:05 - Constitutional Appears: Non-toxic - Head Exam Head Exam: ATRAUMATIC - Extremities Exam Additional comments: LE focused exam VASC: DP palpable on L, not palpable on R; PT palpable b/l; cap refill <3 seconds to all digits; temp gradient wnl; mild edema noted to b/l LE; hair growth absent DERM: left hallux diabetic chronic ulceration noted, granular base, no drainage appreciate, hyperkeratotic wound margin, no tunneling or tracking, no erythema or streaking, no clinical signs of infection; right LE erythema at the mid leg, circumferential, does not extend to foot ORTHO: no pain on palpation of left hallux wound or right LE erythema; previous surgery to left foot noted NEURO: gross and protective sensation diminished b/l - Neurological Exam Neurological Exam: Alert, Awake, Oriented x3 - Psychiatric Exam Psychiatric exam: Normal Affect Assessment and Plan - Assessment and Plan (Free Text) Assessment: 77M with 1) RLE cellulitis 2) left hallux diabetic chronic ulceration Plan: Patient seen and evaluated Discussed with Dr. 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
--- NOTE | 2018-05-16 13:14 | US ---
Date of service: 05/15/2018 PROCEDURE: Right lower extremity venous duplex Doppler. HISTORY: red and swollen COMPARISON: None available. TECHNIQUE: Common femoral, superficial femoral, popliteal and posterior tibial veins were evaluated. Flow was assessed with color Doppler, compressibility, assessment of phasic flow and augmentation response. FINDINGS: COMMON FEMORAL VEIN: Unremarkable. SUPERFICIAL FEMORAL VEIN: Unremarkable. POPLITEAL VEIN: Unremarkable. POSTERIOR TIBIAL VEIN: Unremarkable. OTHER FINDINGS: There are enlarged inguinal lymph nodes, the largest measuring 2.3 x 1.3 x 2.2 cm. IMPRESSION: No evidence of deep venous thrombosis in the right lower extremity. Enlarged right inguinal lymph nodes, nonspecific and may be infectious, inflammatory or neoplastic in etiology. Clinical follow-up is advised.
[2018-05-17 06:01] LABS: HEMOGLOBIN 12.4 g/dL (12.0-18.0); MEAN CELL VOLUME 89.9 fl (80.0-94.0); MEAN CORPUSCULAR HEMOGLOBIN 29.4 pg (27.0-31.0); MEAN CORPUSCULAR HGB CONC 32.7 g/dL (33.0-37.0); RBC 4.22 Mil/uL (4.40-5.90); RED CELL DISTRIBUTION WIDTH 14.8 % (11.5-14.5); WHITE BLOOD COUNT 11.4 K/uL (4.8-10.8)
[2018-05-17 06:11] LABS: BLOOD UREA NITROGEN 25 mg/dl (9-20); CALCIUM 8.3 mg/dL (8.4-10.2); GFR NON-AFRICAN AMERICAN > 60
--- NOTE | 2018-05-17 07:29 | CP.PCM.PN ---
<Bhanu Bazan - Last Filed: 05/17/18 11:46> Subjective - Date & Time of Evaluation Date of Evaluation: 05/17/18 Time of Evaluation: 07:28 - Subjective Subjective: Pt seen and examined at bedside with attending, Dr. Ross. Pt denies acute overnight events. Tolerating po diet. continuing with PT. Remains afebrile. Objective - Vital Signs/Intake and Output Vital Signs (last 24 hours): Temp Pulse Resp BP Pulse Ox 98.5 F 71 18 123/86 95 05/17/18 04:37 05/17/18 04:37 05/17/18 04:37 05/17/18 04:37 05/17/18 04:37 - Medications Medications: Current Medications Acetaminophen (Tylenol 325mg Tab) 650 mg PO Q6 PRN PRN Reason: Fever >100.4 F Last Admin: 05/15/18 05:16 Dose: 650 mg Aspirin (Ecotrin) 325 mg PO DAILY [facility] Last Admin: 05/16/18 08:39 Dose: 325 mg Atorvastatin Calcium (Lipitor) 20 mg PO HS [facility] Last Admin: 05/16/18 21:39 Dose: 20 mg Bisoprolol Fumarate (Zebeta) 2.5 mg PO DAILY [facility] Donepezil HCl (Aricept) 10 mg PO DAILY [facility] Last Admin: 05/16/18 08:36 Dose: 10 mg Enoxaparin Sodium (Lovenox) 40 mg SC DAILY [facility]; Protocol Last Admin: 05/16/18 08:40 Dose: 40 mg Furosemide (Lasix) 40 mg IV DAILY [facility] Last Admin: 05/16/18 08:39 Dose: 40 mg Home Med (Dutasteride [Avodart]) 0.5 mg PO DAILY [facility] Last Admin: 05/16/18 08:39 Dose: 0.5 mg Vancomycin HCl 1,500 mg/ (Sodium Chloride) 500 mls @ 250 mls/hr IVPB Q12H [facility]; Protocol Last Admin: 05/16/18 21:59 Dose: 250 mls/hr Levalbuterol HCl (Xopenex) 0.63 mg INH RQ8 PRN PRN Reason: Shortness of Breath Last Admin: 05/16/18 02:04 Dose: 0.63 mg Lisinopril (Zestril) 10 mg PO DAILY [facility] Last Admin: 05/16/18 08:41 Dose: 10 mg Memantine (Namenda) 10 mg PO Q12 [facility] Last Admin: 05/16/18 21:39 Dose: 10 mg Mupirocin (Bactroban Ointment) 1 applic TOP BID [facility] Last Admin: 05/16/18 18:30 Dose: 1 applic Oxybutynin Chloride (Ditropan Tab) 5 mg PO DAILY [facility] Last Admin: 05/16/18 08:38 Dose: 5 mg Spironolactone (Aldactone) 12.5 mg PO DAILY [facility] - Labs Labs: 05/17/18 04:20 05/17/18 04:20 PT 14.6 Seconds (9.8-13.1) H 05/14/18 14:05 INR 1.3 05/14/18 14:05 APTT 37.7 Seconds (25.6-37.1) H 05/14/18 14:05 - Constitutional Appears: No Acute Distress - Eye Exam Eye Exam: EOMI - ENT Exam ENT Exam: Mucous Membranes Moist - Respiratory Exam Respiratory Exam: Clear to Ausculation Bilateral. absent: Wheezes - Cardiovascular Exam Cardiovascular Exam: REGULAR RHYTHM, +S1, +S2 - GI/Abdominal Exam GI & Abdominal Exam: Soft, Normal Bowel Sounds. absent: Tenderness - Neurological Exam Neurological Exam: Alert, Awake - Psychiatric Exam Psychiatric exam: Normal Affect, Normal Mood Assessment and Plan (1) Cellulitis of leg, right Status: Acute (2) Rhabdomyolysis Status: Acute (3) HTN (hypertension) Status: Acute (4) Alzheimer's dementia Status: Acute (5) BPH (benign prostatic hyperplasia) Status: Acute (6) Acute systolic heart failure Status: Acute - Assessment and Plan (Free Text) Assessment: Pt seen and examined at bedside with attending, Dr. Ross. 77 yo M with pmhx of CVA Alzheimer's dementia, and neuropathy admitted for possible syncopal episode resulting in fall, rhabdomyolysis and cellulitis. Plan: EKG: Sinus rhythm with premature atrial complexes; possible inferior infarct, age undetermined ECHO: Technically difficult study. The LV systolic function is mildly impaired. The estimated ejection fraction is 45-50% There is mild anterolateral wall hypokinesis. Transmitral Doppler flow pattern is Grade I-abnormal relaxation pattern. The left atrium is moderately dilated. There is mild mitral valve regurgitation noted. There is mild tricuspid valve regurgitation noted. RVSP is calculated at 35 mm Hg. CXR: No active pulmonary disease. Low lung volumes may be related to poor inspiratory effort. Moderate cardiomegaly and pulmonary venous congestion. CT head: No acute intracranial abnormalities. No significant findings to account for the clinical presentation. CT cervical spine: No acute findings related to/accounting for the clinical presentation. CT lumbar spine: No acute findings related to/ accounting for the clinical presentation. Hip/Pelvis XRAY: No acute displaced fracture or dislocation. Please note occult fractures cannot be excluded on plain radiographs. If there is a persistent clinical concern, an MRI of the hip may be performed for further evaluation. XR L Foot: Superficial appearing soft tissue ulceration great toe without osseous changes here to suggest osteomyelitis. Postsurgical changes elsewhere. Multifocal arthrosis R LE duplex: no evidence of DVT Cellulitis -WBC: 18.3->16.5->11.6 -hgba1c: 5.5 -Podiatry consult: Dr. Ocampo: recs appreciated; continue current mangement, dressing changes q3D -Fever with T max of 101.2 at 05:16 on 05/15/2018; currently afebrile -IV Abx: Vanc (15 mg/kg q12); d/c Zosyn -Vanc trough 05/16/2018: 9.6 continue with goal <15 -ID: Dr. Madrid: further recs appreciated -BCX: NG x 48 hrs (x2); x24 hrs (x1) -PT: ambulation, strengthening -f/u AM labs, blood cultures Rhabdomyolysis -s/p fall; improving -Total CK: 1123 s/p 1 L NS -> 625 -BNP: 5080 --> 718 -continue to monitor CHF -Possibly new dx; per son, pt did not have hx -BNP: 5080 --> 718 -Cardiology: Dr. Guillen: IV lasix 40 daily -I&O HTN -controlled -Lisinopril, Spironolactone, Besoprolol -monitor vitals Alzheimer's dementia -c/w donepezil, memantine BPH -c/w Dutasteride (brought from home), oxybutynin DVT prophylaxis -Lovenox -Pt encourged ambulation as tolerated with PT Case and plan d/w Dr. Cody Bazan MD PGY-2 <Ross,Pk K - Last Filed: 05/20/18 13:13> Objective - Vital Signs/Intake and Output Vital Signs (last 24 hours): Temp Pulse Resp BP Pulse Ox 97.6 F 52 L 18 105/68 96 05/20/18 11:39 05/20/18 11:39 05/20/18 11:39 05/20/18 11:39 05/20/18 11:39 - Medications Medications: Current Medications Acetaminophen (Tylenol 325mg Tab) 650 mg PO Q6 PRN PRN Reason: Fever >100.4 F Last Admin: 05/15/18 05:16 Dose: 650 mg Aspirin (Ecotrin) 325 mg PO DAILY [facility] Last Admin: 05/20/18 08:09 Dose: 325 mg Atorvastatin Calcium (Lipitor) 20 mg PO HS [facility] Last Admin: 05/19/18 21:00 Dose: 20 mg Bisoprolol Fumarate (Zebeta) 2.5 mg PO DAILY [facility] Last Admin: 05/20/18 08:10 Dose: 2.5 mg Donepezil HCl (Aricept) 10 mg PO DAILY [facility] Last Admin: 05/20/18 08:14 Dose: 10 mg Enoxaparin Sodium (Lovenox) 40 mg SC DAILY [facility]; Protocol Last Admin: 05/20/18 08:09 Dose: 40 mg Furosemide (Lasix) 40 mg IV DAILY [facility] Last Admin: 05/20/18 08:08 Dose: 40 mg Home Med (Dutasteride [Avodart]) 0.5 mg PO DAILY [facility] Last Admin: 05/20/18 08:07 Dose: 0.5 mg Vancomycin HCl 1,500 mg/ (Sodium Chloride) 500 mls @ 250 mls/hr IVPB Q12H [facility]; Protocol Last Admin: 05/20/18 09:26 Dose: 250 mls/hr Ceftriaxone Sodium 2 gm/ (Sodium Chloride) 100 mls @ 100 mls/hr IVPB DAILY [facility]; Protocol Last Admin: 05/20/18 08:14 Dose: 100 mls/hr Levalbuterol HCl (Xopenex) 0.63 mg INH RQ8 PRN PRN Reason: Shortness of Breath Last Admin: 05/20/18 02:38 Dose: 0.63 mg Lisinopril (Zestril) 10 mg PO DAILY [facility] Last Admin: 05/20/18 08:08 Dose: 10 mg Memantine (Namenda) 10 mg PO Q12 [facility] Last Admin: 05/20/18 08:07 Dose: 10 mg Mupirocin (Bactroban Ointment) 1 applic TOP BID [facility] Last Admin: 05/20/18 08:10 Dose: 1 applic Oxybutynin Chloride (Ditropan Tab) 5 mg PO DAILY [facility] Last Admin: 05/20/18 08:14 Dose: 5 mg Spironolactone (Aldactone) 12.5 mg PO DAILY [facility] Last Admin: 05/20/18 08:14 Dose: 12.5 mg - Labs Labs: 05/20/18 05:11 05/19/18 05:10 PT 14.6 Seconds (9.8-13.1) H 05/14/18 14:05 INR 1.3 05/14/18 14:05 APTT 37.7 Seconds (25.6-37.1) H 05/14/18 14:05 Assessment and Plan - Assessment and Plan (Free Text) Plan: Patient was personally seen and examined by me in rounds with residents. Available labs and diagnostic data reviewed. Case, Patient's condition and management plan discussed with residents in rounds. Agree with resident's progress note. Plan: As ordered.
[2018-05-17] MEDS: Aspirin 325 mg EC Tablets PO SCH (08:10)
[2018-05-17] MEDS: Enoxaparin 40 mg Syringe SC SCH (08:12)
[2018-05-17] MEDS: Mupirocin 2% Oint 1GM UD TOP SCH ×2 (08:13→16:23)
--- NOTE | 2018-05-17 10:19 | CP.PCM.PN ---
Subjective - Date & Time of Evaluation Date of Evaluation: 05/17/18 Time of Evaluation: :19 - Subjective Subjective: ID Note- Pt. seen and examined today. denies any fever. Objective - Vital Signs/Intake and Output Vital Signs (last 24 hours): Temp Pulse Resp BP Pulse Ox 97.8 F 82 18 144/95 H 90 L 05/17/18 08:00 05/17/18 08:11 05/17/18 08:00 05/17/18 08:11 05/17/18 08:00 - Medications Medications: Current Medications Acetaminophen (Tylenol 325mg Tab) 650 mg PO Q6 PRN PRN Reason: Fever >100.4 F Last Admin: 05/15/18 05:16 Dose: 650 mg Aspirin (Ecotrin) 325 mg PO DAILY [facility] Last Admin: 05/17/18 08:10 Dose: 325 mg Atorvastatin Calcium (Lipitor) 20 mg PO HS [facility] Last Admin: 05/16/18 21:39 Dose: 20 mg Bisoprolol Fumarate (Zebeta) 2.5 mg PO DAILY [facility] Last Admin: 05/17/18 08:11 Dose: 2.5 mg Donepezil HCl (Aricept) 10 mg PO DAILY [facility] Last Admin: 05/17/18 08:14 Dose: 10 mg Enoxaparin Sodium (Lovenox) 40 mg SC DAILY [facility]; Protocol Last Admin: 05/17/18 08:12 Dose: 40 mg Furosemide (Lasix) 40 mg IV DAILY [facility] Last Admin: 05/17/18 08:08 Dose: 40 mg Home Med (Dutasteride [Avodart]) 0.5 mg PO DAILY [facility] Last Admin: 05/17/18 08:11 Dose: 0.5 mg Vancomycin HCl 1,500 mg/ (Sodium Chloride) 500 mls @ 250 mls/hr IVPB Q12H [facility]; Protocol Last Admin: 05/17/18 08:07 Dose: 250 mls/hr Levalbuterol HCl (Xopenex) 0.63 mg INH RQ8 PRN PRN Reason: Shortness of Breath Last Admin: 05/16/18 02:04 Dose: 0.63 mg Lisinopril (Zestril) 10 mg PO DAILY [facility] Last Admin: 05/17/18 08:11 Dose: 10 mg Memantine (Namenda) 10 mg PO Q12 [facility] Last Admin: 05/17/18 08:10 Dose: 10 mg Mupirocin (Bactroban Ointment) 1 applic TOP BID [facility] Last Admin: 05/17/18 08:13 Dose: 1 applic Oxybutynin Chloride (Ditropan Tab) 5 mg PO DAILY [facility] Last Admin: 05/17/18 08:12 Dose: 5 mg Spironolactone (Aldactone) 12.5 mg PO DAILY [facility] Last Admin: 05/17/18 08:14 Dose: 12.5 mg - Labs Labs: - Additional Findings Additional findings: - Constitutional Appears: No Acute Distress - Head Exam Head Exam: ATRAUMATIC - Eye Exam Eye Exam: EOMI - ENT Exam ENT Exam: Normal Oropharynx - Neck Exam Neck exam: Positive for: Full Rom - Respiratory Exam Respiratory Exam: Clear to Auscultation Bilateral, NORMAL BREATHING PATTERN - Cardiovascular Exam Cardiovascular Exam: RRR, +S1, +S2 - GI/Abdominal Exam GI & Abdominal Exam: Normal Bowel Sounds, Soft Additional comments: NT, ND - Extremities Exam Additional comments: RLE erythema still present but the marked area has decreased in diameter no discharge no tenderness to palpation minimal edema left plantar large hallux with small ulcerated region, no discharge, the heel ulcer is closed and healed - Neurological Exam Neurological exam: Alert Additional comments: oriented x 3 Laboratory Results - last 72 hr 05/14/18 05/14/18 05/14/18 14:00 14:05 14:05 WBC 18.3 H RBC 4.84 Hgb 14.2 Hct 42.9 MCV 88.5 MCH 29.2 MCHC 33.0 RDW 14.6 H Plt Count 230 MPV 8.5 Neut % (Auto) 80.7 H Lymph % (Auto) 14.1 L Starr % (Auto) 4.4 Eos % (Auto) 0.1 Baso % (Auto) 0.7 Neut # (Auto) 14.8 H Lymph # (Auto) 2.6 Starr # (Auto) 0.8 Eos # (Auto) 0.0 Baso # (Auto) 0.1 PT INR APTT pO2 VBG pH VBG pCO2 VBG HCO3 VBG Total CO2 VBG O2 Sat (Calc) VBG Base Excess VBG Potassium Glucose Lactate FiO2 Sodium 138 Potassium 4.2 Chloride 103 Carbon Dioxide 25 Anion Gap 14 BUN 28 H Creatinine 1.2 Est GFR ( Amer) > 60 Est GFR (Non-Af Amer) 59 Random Glucose 119 H Hemoglobin A1c Lactic Acid Calcium 8.8 Total Bilirubin AST ALT Alkaline Phosphatase Total Creatine Kinase 1123 H Troponin I 0.0450 NT-Pro-B Natriuret Pep 5080 H Total Protein Albumin Globulin Albumin/Globulin Ratio Triglycerides Cholesterol LDL Cholesterol Direct HDL Cholesterol Vitamin B12 Thyroxine (T4) TSH 3rd Generation Venous Blood Potassium Urine Color Urine Clarity Urine pH Ur Specific [place] Urine Protein Urine Glucose (UA) Urine Ketones Urine Blood Urine Nitrate Urine Bilirubin Urine Urobilinogen Ur Leukocyte Esterase Urine RBC (Auto) Urine Microscopic WBC Hyaline Casts Vancomycin Trough Influenza Typ A,B (EIA) Negative for flu a/b 05/14/18 05/14/18 05/15/18 14:05 14:10 04:35 WBC 16.5 H RBC 4.44 Hgb 12.8 Hct 39.9 MCV 90.0 MCH 28.9 MCHC 32.1 L RDW 14.9 H Plt Count 195 MPV Neut % (Auto) Lymph % (Auto) Starr % (Auto) Eos % (Auto) Baso % (Auto) Neut # (Auto) Lymph # (Auto) Starr # (Auto) Eos # (Auto) Baso # (Auto) PT 14.6 H INR 1.3 APTT 37.7 H pO2 33 VBG pH 7.44 H VBG pCO2 39 L VBG HCO3 25.9 VBG Total CO2 27.7 VBG O2 Sat (Calc) 69.1 H VBG Base Excess 2.3 H VBG Potassium 4.9 Glucose 119 H Lactate 2.3 H FiO2 21.0 Sodium 131.0 L Potassium Chloride 101.0 Carbon Dioxide Anion Gap BUN Creatinine Est GFR ( Amer) Est GFR (Non-Af Amer) Random Glucose Hemoglobin A1c Lactic Acid Calcium Total Bilirubin AST ALT Alkaline Phosphatase Total Creatine Kinase Troponin I NT-Pro-B Natriuret Pep Total Protein Albumin Globulin Albumin/Globulin Ratio Triglycerides Cholesterol LDL Cholesterol Direct HDL Cholesterol Vitamin B12 Thyroxine (T4) TSH 3rd Generation Venous Blood Potassium 4.9 Urine Color Urine Clarity Urine pH Ur Specific [place] Urine Protein Urine Glucose (UA) Urine Ketones Urine Blood Urine Nitrate Urine Bilirubin Urine Urobilinogen Ur Leukocyte Esterase Urine RBC (Auto) Urine Microscopic WBC Hyaline Casts Vancomycin Trough Influenza Typ A,B (EIA) 05/15/18 05/15/18 05/15/18 04:35 04:35 21:00 WBC RBC Hgb Hct MCV MCH MCHC RDW Plt Count MPV Neut % (Auto) Lymph % (Auto) Starr % (Auto) Eos % (Auto) Baso % (Auto) Neut # (Auto) Lymph # (Auto) Starr # (Auto) Eos # (Auto) Baso # (Auto) PT INR APTT pO2 VBG pH VBG pCO2 VBG HCO3 VBG Total CO2 VBG O2 Sat (Calc) VBG Base Excess VBG Potassium Glucose Lactate FiO2 Sodium 137 Potassium 3.7 Chloride 102 Carbon Dioxide 27 Anion Gap 12 BUN 32 H Creatinine 1.0 Est GFR ( Amer) > 60 Est GFR (Non-Af Amer) > 60 Random Glucose 111 H Hemoglobin A1c 5.5 Lactic Acid Calcium 8.5 Total Bilirubin 0.6 AST 64 H ALT 29 Alkaline Phosphatase 67 Total Creatine Kinase Troponin I NT-Pro-B Natriuret Pep Total Protein 7.0 Albumin 3.2 L Globulin 3.7 Albumin/Globulin Ratio 0.9 L Triglycerides 104 Cholesterol 93 LDL Cholesterol Direct 37 HDL Cholesterol 31 Vitamin B12 392 Thyroxine (T4) 6.84 TSH 3rd Generation 2.96 Venous Blood Potassium Urine Color Yellow Urine Clarity Slighty-cloudy Urine pH 5.0 Ur Specific [place] 1.026 Urine Protein 30 Urine Glucose (UA) Neg Urine Ketones Negative Urine Blood Moderate Urine Nitrate Negative Urine Bilirubin Negative Urine Urobilinogen 0.2-1.0 Ur Leukocyte Esterase Neg Urine RBC (Auto) 12 H Urine Microscopic WBC 2 Hyaline Casts 0-2 Vancomycin Trough Influenza Typ A,B (EIA) 05/16/18 05/16/18 05/16/18 04:20 04:20 08:30 WBC 11.6 H RBC 4.29 L Hgb 12.8 Hct 38.7 MCV 90.1 MCH 29.7 MCHC 33.0 RDW 14.6 H Plt Count 207 MPV Neut % (Auto) Lymph % (Auto) Starr % (Auto) Eos % (Auto) Baso % (Auto) Neut # (Auto) Lymph # (Auto) Starr # (Auto) Eos # (Auto) Baso # (Auto) PT INR APTT pO2 VBG pH VBG pCO2 VBG HCO3 VBG Total CO2 VBG O2 Sat (Calc) VBG Base Excess VBG Potassium Glucose Lactate FiO2 Sodium 139 Potassium 4.1 Chloride 104 Carbon Dioxide 30 Anion Gap 9 L BUN 31 H Creatinine 0.9 Est GFR ( Amer) > 60 Est GFR (Non-Af Amer) > 60 Random Glucose 96 Hemoglobin A1c Lactic Acid Calcium 8.3 L Total Bilirubin 0.4 AST 105 H D ALT 59 Alkaline Phosphatase 72 Total Creatine Kinase 625 H Troponin I NT-Pro-B Natriuret Pep Total Protein 6.4 Albumin 3.0 L Globulin 3.4 Albumin/Globulin Ratio 0.9 L Triglycerides Cholesterol LDL Cholesterol Direct HDL Cholesterol Vitamin B12 Thyroxine (T4) TSH 3rd Generation Venous Blood Potassium Urine Color Urine Clarity Urine pH Ur Specific [place] Urine Protein Urine Glucose (UA) Urine Ketones Urine Blood Urine Nitrate Urine Bilirubin Urine Urobilinogen Ur Leukocyte Esterase Urine RBC (Auto) Urine Microscopic WBC Hyaline Casts Vancomycin Trough 9.6 Influenza Typ A,B (EIA) 05/16/18 05/16/18 05/17/18 09:40 09:40 04:20 WBC 11.4 H RBC 4.22 L Hgb 12.4 Hct 37.9 MCV 89.9 MCH 29.4 MCHC 32.7 L RDW 14.8 H Plt Count 231 MPV Neut % (Auto) Lymph % (Auto) Starr % (Auto) Eos % (Auto) Baso % (Auto) Neut # (Auto) Lymph # (Auto) Starr # (Auto) Eos # (Auto) Baso # (Auto) PT INR APTT pO2 VBG pH VBG pCO2 VBG HCO3 VBG Total CO2 VBG O2 Sat (Calc) VBG Base Excess VBG Potassium Glucose Lactate FiO2 Sodium Potassium Chloride Carbon Dioxide Anion Gap BUN Creatinine Est GFR ( Amer) Est GFR (Non-Af Amer) Random Glucose Hemoglobin A1c Lactic Acid 2.1 Calcium Total Bilirubin AST ALT Alkaline Phosphatase Total Creatine Kinase Troponin I NT-Pro-B Natriuret Pep 718 Total Protein Albumin Globulin Albumin/Globulin Ratio Triglycerides Cholesterol LDL Cholesterol Direct HDL Cholesterol Vitamin B12 Thyroxine (T4) TSH 3rd Generation Venous Blood Potassium Urine Color Urine Clarity Urine pH Ur Specific [place] Urine Protein Urine Glucose (UA) Urine Ketones Urine Blood Urine Nitrate Urine Bilirubin Urine Urobilinogen Ur Leukocyte Esterase Urine RBC (Auto) Urine Microscopic WBC Hyaline Casts Vancomycin Trough Influenza Typ A,B (EIA) 05/17/18 04:20 WBC RBC Hgb Hct MCV MCH MCHC RDW Plt Count MPV Neut % (Auto) Lymph % (Auto) Starr % (Auto) Eos % (Auto) Baso % (Auto) Neut # (Auto) Lymph # (Auto) Starr # (Auto) Eos # (Auto) Baso # (Auto) PT INR APTT pO2 VBG pH VBG pCO2 VBG HCO3 VBG Total CO2 VBG O2 Sat (Calc) VBG Base Excess VBG Potassium Glucose Lactate FiO2 Sodium 139 Potassium 3.8 Chloride 105 Carbon Dioxide 29 Anion Gap 9 L BUN 25 H Creatinine 0.7 L Est GFR ( Amer) > 60 Est GFR (Non-Af Amer) > 60 Random Glucose 92 Hemoglobin A1c Lactic Acid Calcium 8.3 L Total Bilirubin AST ALT Alkaline Phosphatase Total Creatine Kinase Troponin I NT-Pro-B Natriuret Pep Total Protein Albumin Globulin Albumin/Globulin Ratio Triglycerides Cholesterol LDL Cholesterol Direct HDL Cholesterol Vitamin B12 Thyroxine (T4) TSH 3rd Generation Venous Blood Potassium Urine Color Urine Clarity Urine pH Ur Specific [place] Urine Protein Urine Glucose (UA) Urine Ketones Urine Blood Urine Nitrate Urine Bilirubin Urine Urobilinogen Ur Leukocyte Esterase Urine RBC (Auto) Urine Microscopic WBC Hyaline Casts Vancomycin Trough Influenza Typ A,B (EIA) Microbiology 05/15/18 17:35 Blood-Venous Blood Culture - Preliminary NO GROWTH AFTER 24 HOURS 05/14/18 14:05 Blood-Venous Blood Culture - Preliminary NO GROWTH AFTER 48 HOURS 05/14/18 14:05 Blood-Venous Blood Culture - Preliminary NO GROWTH AFTER 48 HOURS Assessment and Plan (1) Cellulitis of leg, right Status: Acute - Assessment and Plan (Free Text) Assessment: A/P- 77 year old male with PMH of CVA, 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 afebrile leukocytosis trending down. blood cx- neg x 3 RLE US- no DVT as per report PLan- advise to continue pt. on vancomycin to treat the RLE cellulitis.day #3 advise 15 mg/kg BID. keep trough <15. advise podiatry for left hallux wound acre management. Also advise to keep RLE elevated while in bed or sitting.
[2018-05-18] MEDS: Levalbuterol 0.63 MG/3 ML Inhal Soln UD INH PRN (04:05)
[2018-05-18 05:49] LABS: HEMOGLOBIN 12.1 g/dL (12.0-18.0); MEAN CORPUSCULAR HEMOGLOBIN 29.4 pg (27.0-31.0); MEAN CORPUSCULAR HGB CONC 32.7 g/dL (33.0-37.0); RBC 4.13 Mil/uL (4.40-5.90); RED CELL DISTRIBUTION WIDTH 14.9 % (11.5-14.5)
[2018-05-18 06:27] LABS: ALB/GLOB RATIO 0.9 (1.0-2.1); ALT/SGPT 81 U/L (21-72); AST/SGOT 73 U/L (17-59); BLOOD UREA NITROGEN 22 mg/dl (9-20); CALCIUM 8.6 mg/dL (8.4-10.2); GFR NON-AFRICAN AMERICAN > 60
--- NOTE | 2018-05-18 06:37 | CP.PCM.PN ---
<Bhanu Bazan - Last Filed: 05/18/18 09:32> Subjective - Date & Time of Evaluation Date of Evaluation: 05/18/18 Time of Evaluation: 06:37 - Subjective Subjective: Pt seen and examined at bedside with attending, Dr. Ross. No acute events overnight. Pt afebrile, participating in PT, tolerating PO diet and experiencing regular bowel movements. Objective - Vital Signs/Intake and Output Vital Signs (last 24 hours): Temp Pulse Resp BP Pulse Ox 98.6 F 88 18 133/80 94 L 05/18/18 05:00 05/18/18 05:00 05/18/18 05:00 05/18/18 05:00 05/18/18 05:00 Intake and Output: 05/17/18 05/18/18 18:59 06:59 Intake Total 1580 Output Total 1400 Balance 180 - Medications Medications: Current Medications Acetaminophen (Tylenol 325mg Tab) 650 mg PO Q6 PRN PRN Reason: Fever >100.4 F Last Admin: 05/15/18 05:16 Dose: 650 mg Aspirin (Ecotrin) 325 mg PO DAILY [facility] Last Admin: 05/17/18 08:10 Dose: 325 mg Atorvastatin Calcium (Lipitor) 20 mg PO HS [facility] Last Admin: 05/17/18 21:07 Dose: 20 mg Bisoprolol Fumarate (Zebeta) 2.5 mg PO DAILY [facility] Last Admin: 05/17/18 08:11 Dose: 2.5 mg Donepezil HCl (Aricept) 10 mg PO DAILY [facility] Last Admin: 05/17/18 08:14 Dose: 10 mg Enoxaparin Sodium (Lovenox) 40 mg SC DAILY [facility]; Protocol Last Admin: 05/17/18 08:12 Dose: 40 mg Furosemide (Lasix) 40 mg IV DAILY [facility] Last Admin: 05/17/18 08:08 Dose: 40 mg Home Med (Dutasteride [Avodart]) 0.5 mg PO DAILY [facility] Last Admin: 05/17/18 08:11 Dose: 0.5 mg Vancomycin HCl 1,500 mg/ (Sodium Chloride) 500 mls @ 250 mls/hr IVPB Q12H [facility]; Protocol Last Admin: 05/17/18 21:31 Dose: 250 mls/hr Levalbuterol HCl (Xopenex) 0.63 mg INH RQ8 PRN PRN Reason: Shortness of Breath Last Admin: 05/18/18 04:05 Dose: 0.63 mg Lisinopril (Zestril) 10 mg PO DAILY [facility] Last Admin: 05/17/18 08:11 Dose: 10 mg Memantine (Namenda) 10 mg PO Q12 [facility] Last Admin: 05/17/18 21:07 Dose: 10 mg Mupirocin (Bactroban Ointment) 1 applic TOP BID [facility] Last Admin: 05/17/18 16:23 Dose: 1 applic Oxybutynin Chloride (Ditropan Tab) 5 mg PO DAILY [facility] Last Admin: 05/17/18 08:12 Dose: 5 mg Spironolactone (Aldactone) 12.5 mg PO DAILY [facility] Last Admin: 05/17/18 08:14 Dose: 12.5 mg - Labs Labs: 05/18/18 04:20 05/18/18 04:20 PT 14.6 Seconds (9.8-13.1) H 05/14/18 14:05 INR 1.3 05/14/18 14:05 APTT 37.7 Seconds (25.6-37.1) H 05/14/18 14:05 - Constitutional Appears: No Acute Distress - Eye Exam Eye Exam: EOMI - ENT Exam ENT Exam: Mucous Membranes Moist - Respiratory Exam Respiratory Exam: Clear to Ausculation Bilateral, NORMAL BREATHING PATTERN. absent: Chest Wall Tenderness, Wheezes - Cardiovascular Exam Cardiovascular Exam: +S1, +S2 - GI/Abdominal Exam GI & Abdominal Exam: Soft, Normal Bowel Sounds. absent: Tenderness - Extremities Exam Additional comments: R lower extremity cellulitis improving. L hallux dressed in gauze - Neurological Exam Neurological Exam: Alert, Awake - Psychiatric Exam Psychiatric exam: Normal Affect, Normal Mood Assessment and Plan (1) Cellulitis of leg, right Status: Acute (2) Rhabdomyolysis Status: Acute (3) HTN (hypertension) Status: Acute (4) Alzheimer's dementia Status: Acute (5) BPH (benign prostatic hyperplasia) Status: Acute (6) Acute systolic heart failure Status: Acute - Assessment and Plan (Free Text) Assessment: Pt seen and examined at bedside with attending, Dr. Ross. 77 yo M with pmhx of CVA Alzheimer's dementia, and neuropathy admitted for possible syncopal episode resulting in fall, rhabdomyolysis and cellulitis. Plan: EKG: Sinus rhythm with premature atrial complexes; possible inferior infarct, age undetermined ECHO: Technically difficult study. The LV systolic function is mildly impaired. The estimated ejection fraction is 45-50% There is mild anterolateral wall hypokinesis. Transmitral Doppler flow pattern is Grade I-abnormal relaxation pattern. The left atrium is moderately dilated. There is mild mitral valve regurgitation noted. There is mild tricuspid valve regurgitation noted. RVSP is calculated at 35 mm Hg. CXR: No active pulmonary disease. Low lung volumes may be related to poor inspiratory effort. Moderate cardiomegaly and pulmonary venous congestion. CT head: No acute intracranial abnormalities. No significant findings to account for the clinical presentation. CT cervical spine: No acute findings related to/accounting for the clinical presentation. CT lumbar spine: No acute findings related to/ accounting for the clinical presentation. Hip/Pelvis XRAY: No acute displaced fracture or dislocation. Please note occult fractures cannot be excluded on plain radiographs. If there is a persistent cl inical concern, an MRI of the hip may be performed for further evaluation. XR L Foot: Superficial appearing soft tissue ulceration great toe without osseous changes here to suggest osteomyelitis. Postsurgical changes elsewhere. Multifocal arthrosis R LE duplex: no evidence of DVT Cellulitis -WBC: 18.3->13.0 -hgba1c: 5.5 -Podiatry consult: Dr. Ocampo: recs appreciated; continue current management, dressing changes q3D -Fever with T max of 101.2 at 05:16 on 05/15/2018; currently afebrile -IV Abx: Vanc (15 mg/kg q12) Day #4; d/c Zosyn -Vanc trough 05/16/2018: 9.6; continue with goal <15 -ID: Dr. Madrid: further recs appreciated -BCX: NG x 3D (x2); x48 hrs (x1) -PT: ambulation, strengthening -f/u AM labs, blood cultures Rhabdomyolysis -s/p fall; resolved -Total CK: 1123 s/p 1 L NS -> 625 --> 88 -continue to monitor CHF -Possibly new dx; per son, pt did not have hx -BNP: 5080 --> 718 -Cardiology: Dr. Guillen: IV lasix 40 daily -echo reviewed -daily I&O HTN -controlled -Lisinopril, Spironolactone, Besoprolol -monitor vitals Alzheimer's dementia -c/w donepezil, memantine BPH -c/w Dutasteride (brought from home), oxybutynin DVT prophylaxis -Lovenox -Pt encourged ambulation as tolerated with PT Case and plan d/w Dr. Cody Bazan MD PGY-2 <Pk Ross - Last Filed: 05/20/18 13:11> Objective - Vital Signs/Intake and Output Vital Signs (last 24 hours): Temp Pulse Resp BP Pulse Ox 97.6 F 52 L 18 105/68 96 05/20/18 11:39 05/20/18 11:39 05/20/18 11:39 05/20/18 11:39 05/20/18 11:39 - Medications Medications: Current Medications Acetaminophen (Tylenol 325mg Tab) 650 mg PO Q6 PRN PRN Reason: Fever >100.4 F Last Admin: 05/15/18 05:16 Dose: 650 mg Aspirin (Ecotrin) 325 mg PO DAILY [facility] Last Admin: 05/20/18 08:09 Dose: 325 mg Atorvastatin Calcium (Lipitor) 20 mg PO HS [facility] Last Admin: 05/19/18 21:00 Dose: 20 mg Bisoprolol Fumarate (Zebeta) 2.5 mg PO DAILY [facility] Last Admin: 05/20/18 08:10 Dose: 2.5 mg Donepezil HCl (Aricept) 10 mg PO DAILY [facility] Last Admin: 05/20/18 08:14 Dose: 10 mg Enoxaparin Sodium (Lovenox) 40 mg SC DAILY [facility]; Protocol Last Admin: 05/20/18 08:09 Dose: 40 mg Furosemide (Lasix) 40 mg IV DAILY [facility] Last Admin: 05/20/18 08:08 Dose: 40 mg Home Med (Dutasteride [Avodart]) 0.5 mg PO DAILY [facility] Last Admin: 05/20/18 08:07 Dose: 0.5 mg Vancomycin HCl 1,500 mg/ (Sodium Chloride) 500 mls @ 250 mls/hr IVPB Q12H [facility]; Protocol Last Admin: 05/20/18 09:26 Dose: 250 mls/hr Ceftriaxone Sodium 2 gm/ (Sodium Chloride) 100 mls @ 100 mls/hr IVPB DAILY [facility]; Protocol Last Admin: 05/20/18 08:14 Dose: 100 mls/hr Levalbuterol HCl (Xopenex) 0.63 mg INH RQ8 PRN PRN Reason: Shortness of Breath Last Admin: 05/20/18 02:38 Dose: 0.63 mg Lisinopril (Zestril) 10 mg PO DAILY [facility] Last Admin: 05/20/18 08:08 Dose: 10 mg Memantine (Namenda) 10 mg PO Q12 [facility] Last Admin: 05/20/18 08:07 Dose: 10 mg Mupirocin (Bactroban Ointment) 1 applic TOP BID [facility] Last Admin: 05/20/18 08:10 Dose: 1 applic Oxybutynin Chloride (Ditropan Tab) 5 mg PO DAILY [facility] Last Admin: 05/20/18 08:14 Dose: 5 mg Spironolactone (Aldactone) 12.5 mg PO DAILY [facility] Last Admin: 05/20/18 08:14 Dose: 12.5 mg - Labs Labs: 05/20/18 05:11 05/19/18 05:10 PT 14.6 Seconds (9.8-13.1) H 05/14/18 14:05 INR 1.3 05/14/18 14:05 APTT 37.7 Seconds (25.6-37.1) H 05/14/18 14:05 Assessment and Plan - Assessment and Plan (Free Text) Plan: Patient was personally seen and examined by me in rounds with residents. Available labs and diagnostic data reviewed. Case, Patient's condition and management plan discussed with residents in rounds. Agree with resident's progress note. Plan: As ordered.
[2018-05-18] MEDS: Enoxaparin 40 mg Syringe SC SCH (08:46)
[2018-05-18] MEDS: Mupirocin 2% Oint 1GM UD TOP SCH ×2 (08:47→16:59)
[2018-05-18] MEDS: Aspirin 325 mg EC Tablets PO SCH (08:48)
[2018-05-18] MEDS ORDERED: Tdap Vaccine 0.5 ml Vial (10-64 yrs) IM ONE (09:03)
[2018-05-18] MEDS ORDERED: metOLazone 2.5 MG TAB PO ONE (09:31)
--- NOTE | 2018-05-18 15:52 | CP.PCM.PN ---
Subjective - Date & Time of Evaluation Date of Evaluation: 05/18/18 Time of Evaluation: 12:00 - Subjective Subjective: ID note- Patient seen and examined today . afebrile right leg still very erythematous . Objective - Vital Signs/Intake and Output Vital Signs (last 24 hours): Temp Pulse Resp BP Pulse Ox 97.5 F L 83 18 105/73 95 05/18/18 12:06 05/18/18 12:06 05/18/18 12:06 05/18/18 13:05 05/18/18 12:06 - Medications Medications: Current Medications Acetaminophen (Tylenol 325mg Tab) 650 mg PO Q6 PRN PRN Reason: Fever >100.4 F Last Admin: 05/15/18 05:16 Dose: 650 mg Aspirin (Ecotrin) 325 mg PO DAILY [facility] Last Admin: 05/18/18 08:48 Dose: 325 mg Atorvastatin Calcium (Lipitor) 20 mg PO HS [facility] Last Admin: 05/17/18 21:07 Dose: 20 mg Bisoprolol Fumarate (Zebeta) 2.5 mg PO DAILY [facility] Last Admin: 05/18/18 08:48 Dose: 2.5 mg Donepezil HCl (Aricept) 10 mg PO DAILY [facility] Last Admin: 05/18/18 08:52 Dose: 10 mg Enoxaparin Sodium (Lovenox) 40 mg SC DAILY [facility]; Protocol Last Admin: 05/18/18 08:46 Dose: 40 mg Furosemide (Lasix) 40 mg IV DAILY [facility] Last Admin: 05/18/18 08:47 Dose: 40 mg Home Med (Dutasteride [Avodart]) 0.5 mg PO DAILY [facility] Last Admin: 05/18/18 08:51 Dose: 0.5 mg Vancomycin HCl 1,500 mg/ (Sodium Chloride) 500 mls @ 250 mls/hr IVPB Q12H [facility]; Protocol Last Admin: 05/18/18 09:00 Dose: 250 mls/hr Levalbuterol HCl (Xopenex) 0.63 mg INH RQ8 PRN PRN Reason: Shortness of Breath Last Admin: 05/18/18 04:05 Dose: 0.63 mg Lisinopril (Zestril) 10 mg PO DAILY [facility] Last Admin: 05/18/18 08:48 Dose: 10 mg Memantine (Namenda) 10 mg PO Q12 [facility] Last Admin: 05/18/18 08:46 Dose: 10 mg Mupirocin (Bactroban Ointment) 1 applic TOP BID [facility] Last Admin: 05/18/18 08:47 Dose: 1 applic Oxybutynin Chloride (Ditropan Tab) 5 mg PO DAILY [facility] Last Admin: 05/18/18 08:47 Dose: 5 mg Spironolactone (Aldactone) 12.5 mg PO DAILY [facility] Last Admin: 05/18/18 08:52 Dose: 12.5 mg - Labs Labs: - Additional Findings Additional findings: - Constitutional Appears: No Acute Distress - Head Exam Head Exam: ATRAUMATIC - Eye Exam Eye Exam: EOMI - ENT Exam ENT Exam: Normal Oropharynx - Neck Exam Neck exam: Positive for: Full Rom - Respiratory Exam Respiratory Exam: Clear to Auscultation Bilateral, NORMAL BREATHING PATTERN - Cardiovascular Exam Cardiovascular Exam: RRR, +S1, +S2 - GI/Abdominal Exam GI & Abdominal Exam: Normal Bowel Sounds, Soft Additional comments: NT, ND - Extremities Exam Additional comments: RLE erythema more prominent today eventhough the diameter has decreased the actual erythema is more pronounced and few regions seem like small pus filled no discharge no tenderness to palpation - Neurological Exam Neurological exam: Alert Additional comments: oriented x 3 Laboratory Results - last 72 hr 05/15/18 05/16/18 05/16/18 21:00 04:20 04:20 WBC 11.6 H RBC 4.29 L Hgb 12.8 Hct 38.7 MCV 90.1 MCH 29.7 MCHC 33.0 RDW 14.6 H Plt Count 207 Sodium 139 Potassium 4.1 Chloride 104 Carbon Dioxide 30 Anion Gap 9 L BUN 31 H Creatinine 0.9 Est GFR ( Amer) > 60 Est GFR (Non-Af Amer) > 60 Random Glucose 96 Lactic Acid Calcium 8.3 L Total Bilirubin 0.4 AST 105 H D ALT 59 Alkaline Phosphatase 72 Total Creatine Kinase 625 H NT-Pro-B Natriuret Pep Total Protein 6.4 Albumin 3.0 L Globulin 3.4 Albumin/Globulin Ratio 0.9 L Urine Color Yellow Urine Clarity Slighty-cloudy Urine pH 5.0 Ur Specific [place] 1.026 Urine Protein 30 Urine Glucose (UA) Neg Urine Ketones Negative Urine Blood Moderate Urine Nitrate Negative Urine Bilirubin Negative Urine Urobilinogen 0.2-1.0 Ur Leukocyte Esterase Neg Urine RBC (Auto) 12 H Urine Microscopic WBC 2 Hyaline Casts 0-2 Vancomycin Trough 05/16/18 05/16/18 05/16/18 08:30 09:40 09:40 WBC RBC Hgb Hct MCV MCH MCHC RDW Plt Count Sodium Potassium Chloride Carbon Dioxide Anion Gap BUN Creatinine Est GFR ( Amer) Est GFR (Non-Af Amer) Random Glucose Lactic Acid 2.1 Calcium Total Bilirubin AST ALT Alkaline Phosphatase Total Creatine Kinase NT-Pro-B Natriuret Pep 718 Total Protein Albumin Globulin Albumin/Globulin Ratio Urine Color Urine Clarity Urine pH Ur Specific [place] Urine Protein Urine Glucose (UA) Urine Ketones Urine Blood Urine Nitrate Urine Bilirubin Urine Urobilinogen Ur Leukocyte Esterase Urine RBC (Auto) Urine Microscopic WBC Hyaline Casts Vancomycin Trough 9.6 05/17/18 05/17/18 05/18/18 04:20 04:20 04:20 WBC 11.4 H 13.0 H RBC 4.22 L 4.13 L Hgb 12.4 12.1 Hct 37.9 37.2 MCV 89.9 90.0 MCH 29.4 29.4 MCHC 32.7 L 32.7 L RDW 14.8 H 14.9 H Plt Count 231 234 Sodium 139 Potassium 3.8 Chloride 105 Carbon Dioxide 29 Anion Gap 9 L BUN 25 H Creatinine 0.7 L Est GFR ( Amer) > 60 Est GFR (Non-Af Amer) > 60 Random Glucose 92 Lactic Acid Calcium 8.3 L Total Bilirubin AST ALT Alkaline Phosphatase Total Creatine Kinase NT-Pro-B Natriuret Pep Total Protein Albumin Globulin Albumin/Globulin Ratio Urine Color Urine Clarity Urine pH Ur Specific [place] Urine Protein Urine Glucose (UA) Urine Ketones Urine Blood Urine Nitrate Urine Bilirubin Urine Urobilinogen Ur Leukocyte Esterase Urine RBC (Auto) Urine Microscopic WBC Hyaline Casts Vancomycin Trough 05/18/18 04:20 WBC RBC Hgb Hct MCV MCH MCHC RDW Plt Count Sodium 139 Potassium 3.9 Chloride 105 Carbon Dioxide 30 Anion Gap 8 L BUN 22 H Creatinine 0.7 L Est GFR ( Amer) > 60 Est GFR (Non-Af Amer) > 60 Random Glucose 88 Lactic Acid Calcium 8.6 Total Bilirubin 0.6 AST 73 H D ALT 81 H D Alkaline Phosphatase 70 Total Creatine Kinase 88 NT-Pro-B Natriuret Pep Total Protein 6.3 Albumin 3.0 L Globulin 3.4 Albumin/Globulin Ratio 0.9 L Urine Color Urine Clarity Urine pH Ur Specific [place] Urine Protein Urine Glucose (UA) Urine Ketones Urine Blood Urine Nitrate Urine Bilirubin Urine Urobilinogen Ur Leukocyte Esterase Urine RBC (Auto) Urine Microscopic WBC Hyaline Casts Vancomycin Trough Microbiology 05/14/18 14:05 Blood-Venous Blood Culture - Preliminary NO GROWTH AFTER 4 DAYS 05/14/18 14:05 Blood-Venous Blood Culture - Preliminary NO GROWTH AFTER 4 DAYS 05/15/18 17:35 Blood-Venous Blood Culture - Preliminary NO GROWTH AFTER 48 HOURS Assessment and Plan (1) Cellulitis of leg, right Status: Acute - Assessment and Plan (Free Text) Assessment: A/P- 77 year old male with PMH of CVA, 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 afebrile leukocytosis increasing today. more erysipelas looking today blood cx- neg x 3 RLE US- no DVT as per report PLan- will add ceftriaxone today as the cellulitis has more of erysipelas look today. advise to continue pt. on vancomycin as well #4 advise 15 mg/kg BID. keep trough <15. Also advise to keep RLE elevated while in bed or sitting with 2 pillows and to apply warm compress to the region. d/w his nurse and [employer] on the floor as well.
[2018-05-18] MEDS: cefTRIAXone 2 GM in Sodium Chloride 0.9% 100 ML IVPB SCH (17:01)
[2018-05-19] MEDS: Levalbuterol 0.63 MG/3 ML Inhal Soln UD INH PRN (02:59)
[2018-05-19 07:30] LABS: HEMOGLOBIN 12.8 g/dL (12.0-18.0); MEAN CELL VOLUME 90.2 fl (80.0-94.0); MEAN CORPUSCULAR HEMOGLOBIN 29.3 pg (27.0-31.0); MEAN CORPUSCULAR HGB CONC 32.5 g/dL (33.0-37.0); RBC 4.37 Mil/uL (4.40-5.90); RED CELL DISTRIBUTION WIDTH 14.6 % (11.5-14.5); WHITE BLOOD COUNT 14.5 K/uL (4.8-10.8)
[2018-05-19 07:44] LABS: ALB/GLOB RATIO 0.9 (1.0-2.1); ALBUMIN 3.1 g/dL (3.5-5.0); ALT/SGPT 70 U/L (21-72); AST/SGOT 63 U/L (17-59); BLOOD UREA NITROGEN 21 mg/dl (9-20); CALCIUM 8.9 mg/dL (8.4-10.2); GFR NON-AFRICAN AMERICAN > 60
[2018-05-19] MEDS: Mupirocin 2% Oint 1GM UD TOP SCH ×2 (08:04→17:02)
[2018-05-19] MEDS: Enoxaparin 40 mg Syringe SC SCH (08:04)
[2018-05-19] MEDS: Aspirin 325 mg EC Tablets PO SCH (08:06)
[2018-05-19] MEDS: cefTRIAXone 2 GM in Sodium Chloride 0.9% 100 ML IVPB SCH (08:11)
--- NOTE | 2018-05-19 11:48 | CP.PCM.PN ---
Subjective - Date & Time of Evaluation Date of Evaluation: 05/19/18 Time of Evaluation: 11:48 - Subjective Subjective: Id Note- Patient seen and examined today . denies any fever or chills. Objective - Vital Signs/Intake and Output Vital Signs (last 24 hours): Temp Pulse Resp BP Pulse Ox 98.6 F 80 18 120/74 91 L 05/19/18 07:46 05/19/18 08:06 05/19/18 07:46 05/19/18 08:06 05/19/18 07:46 - Medications Medications: Current Medications Acetaminophen (Tylenol 325mg Tab) 650 mg PO Q6 PRN PRN Reason: Fever >100.4 F Last Admin: 05/15/18 05:16 Dose: 650 mg Aspirin (Ecotrin) 325 mg PO DAILY [facility] Last Admin: 05/19/18 08:06 Dose: 325 mg Atorvastatin Calcium (Lipitor) 20 mg PO HS [facility] Last Admin: 05/18/18 22:04 Dose: 20 mg Bisoprolol Fumarate (Zebeta) 2.5 mg PO DAILY [facility] Last Admin: 05/19/18 08:08 Dose: 2.5 mg Donepezil HCl (Aricept) 10 mg PO DAILY [facility] Last Admin: 05/19/18 08:07 Dose: 10 mg Enoxaparin Sodium (Lovenox) 40 mg SC DAILY [facility]; Protocol Last Admin: 05/19/18 08:04 Dose: 40 mg Furosemide (Lasix) 40 mg IV DAILY [facility] Last Admin: 05/19/18 08:05 Dose: 40 mg Home Med (Dutasteride [Avodart]) 0.5 mg PO DAILY [facility] Last Admin: 05/19/18 08:07 Dose: 0.5 mg Vancomycin HCl 1,500 mg/ (Sodium Chloride) 500 mls @ 250 mls/hr IVPB Q12H [facility]; Protocol Last Admin: 05/19/18 08:12 Dose: 250 mls/hr Ceftriaxone Sodium 2 gm/ (Sodium Chloride) 100 mls @ 100 mls/hr IVPB DAILY [facility]; Protocol Last Admin: 05/19/18 08:11 Dose: 100 mls/hr Levalbuterol HCl (Xopenex) 0.63 mg INH RQ8 PRN PRN Reason: Shortness of Breath Last Admin: 05/19/18 02:59 Dose: 0.63 mg Lisinopril (Zestril) 10 mg PO DAILY [facility] Last Admin: 05/19/18 08:06 Dose: 10 mg Memantine (Namenda) 10 mg PO Q12 [facility] Last Admin: 05/19/18 08:06 Dose: 10 mg Mupirocin (Bactroban Ointment) 1 applic TOP BID [facility] Last Admin: 05/19/18 08:04 Dose: 1 applic Oxybutynin Chloride (Ditropan Tab) 5 mg PO DAILY [facility] Last Admin: 05/19/18 08:06 Dose: 5 mg Spironolactone (Aldactone) 12.5 mg PO DAILY [facility] Last Admin: 05/19/18 08:07 Dose: 12.5 mg - Labs Labs: - Additional Findings Additional findings: - Constitutional Appears: No Acute Distress - Head Exam Head Exam: ATRAUMATIC - Eye Exam Eye Exam: EOMI - ENT Exam ENT Exam: Normal Oropharynx - Neck Exam Neck exam: Positive for: Full Rom - Respiratory Exam Respiratory Exam: Clear to Auscultation Bilateral, NORMAL BREATHING PATTERN - Cardiovascular Exam Cardiovascular Exam: RRR, +S1, +S2 - GI/Abdominal Exam GI & Abdominal Exam: Normal Bowel Sounds, Soft Additional comments: NT, ND - Extremities Exam Additional comments: RLE erythema prominent eventhough the diameter has decreased the actual erythema is more pronounced and few regions seem like small pus filled no discharge slightly better than yesterday no tenderness to palpation - Neurological Exam Neurological exam: Alert Additional comments: oriented x 3 Laboratory Results - last 72 hr 05/17/18 05/17/18 05/18/18 04:20 04:20 04:20 WBC 11.4 H 13.0 H RBC 4.22 L 4.13 L Hgb 12.4 12.1 Hct 37.9 37.2 MCV 89.9 90.0 MCH 29.4 29.4 MCHC 32.7 L 32.7 L RDW 14.8 H 14.9 H Plt Count 231 234 Sodium 139 Potassium 3.8 Chloride 105 Carbon Dioxide 29 Anion Gap 9 L BUN 25 H Creatinine 0.7 L Est GFR ( Amer) > 60 Est GFR (Non-Af Amer) > 60 Random Glucose 92 Calcium 8.3 L Total Bilirubin AST ALT Alkaline Phosphatase Total Creatine Kinase Total Protein Albumin Globulin Albumin/Globulin Ratio 05/18/18 05/19/18 05/19/18 04:20 05:10 05:10 WBC 14.5 H RBC 4.37 L Hgb 12.8 Hct 39.4 MCV 90.2 MCH 29.3 MCHC 32.5 L RDW 14.6 H Plt Count 283 Sodium 139 138 Potassium 3.9 3.7 Chloride 105 99 Carbon Dioxide 30 35 H Anion Gap 8 L 8 L BUN 22 H 21 H Creatinine 0.7 L 0.7 L Est GFR ( Amer) > 60 > 60 Est GFR (Non-Af Amer) > 60 > 60 Random Glucose 88 94 Calcium 8.6 8.9 Total Bilirubin 0.6 0.7 AST 73 H D 63 H ALT 81 H D 70 Alkaline Phosphatase 70 71 Total Creatine Kinase 88 Total Protein 6.3 6.6 Albumin 3.0 L 3.1 L Globulin 3.4 3.5 Albumin/Globulin Ratio 0.9 L 0.9 L Microbiology 05/14/18 14:05 Blood-Venous Blood Culture - Final NO GROWTH AFTER 5 DAYS 05/14/18 14:05 Blood-Venous Gram Stain - Final TEST NOT PERFORMED 05/14/18 14:05 Blood-Venous Blood Culture - Final NO GROWTH AFTER 5 DAYS 05/14/18 14:05 Blood-Venous Gram Stain - Final TEST NOT PERFORMED 05/15/18 17:35 Blood-Venous Blood Culture - Preliminary NO GROWTH AFTER 3 DAYS Assessment and Plan (1) Cellulitis of leg, right Status: Acute - Assessment and Plan (Free Text) Assessment: A/P- 77 year old male with PMH of CVA, 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 afebrile leukocytosis increasing today. more erysipelas looking blood cx- neg x 3 RLE US- no DVT as per report PLan- continue with ceftriaxone day #2. advise to continue pt. on vancomycin as well #4 advise 15 mg/kg BID. keep trough <15. Also advise to keep RLE elevated while in bed or sitting with 2 pillows and to apply warm compress to the region. All above d/w [employer] covering for as well.
[2018-05-20] MEDS: Levalbuterol 0.63 MG/3 ML Inhal Soln UD INH PRN (02:38)
[2018-05-20 07:00] LABS: BASO # 0.1 K/uL (0.0-0.2); BASO % 0.8 % (0.0-2.0); EOS # 0.4 K/uL (0.0-0.7); EOS % 3.2 % (0.0-4.0); HEMOGLOBIN 12.9 g/dL (12.0-18.0); LYMPH # 3.4 K/uL (1.0-4.3); LYMPH % 26.1 % (20.0-40.0); MEAN CELL VOLUME 90.3 fl (80.0-94.0); MEAN CORPUSCULAR HEMOGLOBIN 29.8 pg (27.0-31.0); MEAN PLATELET VOLUME 8.3 fl (7.2-11.7); MONO # 0.9 K/uL (0.0-0.8); MONO % 6.9 % (0.0-10.0); NEUT # 8.2 K/uL (1.8-7.0); RBC 4.35 Mil/uL (4.40-5.90); RED CELL DISTRIBUTION WIDTH 14.9 % (11.5-14.5)
[2018-05-20] MEDS: Aspirin 325 mg EC Tablets PO SCH (08:09)
[2018-05-20] MEDS: Enoxaparin 40 mg Syringe SC SCH (08:09)
[2018-05-20] MEDS: Mupirocin 2% Oint 1GM UD TOP SCH ×2 (08:10→16:23)
[2018-05-20] MEDS: cefTRIAXone 2 GM in Sodium Chloride 0.9% 100 ML IVPB SCH (08:14)
--- NOTE | 2018-05-20 15:29 | CP.PCM.PN ---
Subjective - Date & Time of Evaluation Date of Evaluation: 05/20/18 Time of Evaluation: 15:28 - Subjective Subjective: Podiatry progress note - Dr. Cobb 77M seen and evaluated at bedside for RLE cellulitis and L hallux ulceration. Resting comfortably. Denies pain to LE. Reports mild burning in his right leg. Denies n/v/f/c and has no other acute complaints. Objective - Vital Signs/Intake and Output Vital Signs (last 24 hours): Temp Pulse Resp BP Pulse Ox 97.6 F 52 L 18 105/68 96 05/20/18 11:39 05/20/18 11:39 05/20/18 11:39 05/20/18 11:39 05/20/18 11:39 - Medications Medications: Current Medications Acetaminophen (Tylenol 325mg Tab) 650 mg PO Q6 PRN PRN Reason: Fever >100.4 F Last Admin: 05/15/18 05:16 Dose: 650 mg Aspirin (Ecotrin) 325 mg PO DAILY [facility] Last Admin: 05/20/18 08:09 Dose: 325 mg Atorvastatin Calcium (Lipitor) 20 mg PO HS [facility] Last Admin: 05/19/18 21:00 Dose: 20 mg Bisoprolol Fumarate (Zebeta) 2.5 mg PO DAILY [facility] Last Admin: 05/20/18 08:10 Dose: 2.5 mg Donepezil HCl (Aricept) 10 mg PO DAILY [facility] Last Admin: 05/20/18 08:14 Dose: 10 mg Furosemide (Lasix) 40 mg IV DAILY [facility] Last Admin: 05/20/18 08:08 Dose: 40 mg Home Med (Dutasteride [Avodart]) 0.5 mg PO DAILY [facility] Last Admin: 05/20/18 08:07 Dose: 0.5 mg Vancomycin HCl 1,500 mg/ (Sodium Chloride) 500 mls @ 250 mls/hr IVPB Q12H [facility]; Protocol Last Admin: 05/20/18 09:26 Dose: 250 mls/hr Ceftriaxone Sodium 2 gm/ (Sodium Chloride) 100 mls @ 100 mls/hr IVPB DAILY [facility]; Protocol Last Admin: 05/20/18 08:14 Dose: 100 mls/hr Levalbuterol HCl (Xopenex) 0.63 mg INH RQ8 PRN PRN Reason: Shortness of Breath Last Admin: 05/20/18 02:38 Dose: 0.63 mg Lisinopril (Zestril) 10 mg PO DAILY [facility] Last Admin: 05/20/18 08:08 Dose: 10 mg Memantine (Namenda) 10 mg PO Q12 [facility] Last Admin: 05/20/18 08:07 Dose: 10 mg Mupirocin (Bactroban Ointment) 1 applic TOP BID [facility] Last Admin: 05/20/18 08:10 Dose: 1 applic Oxybutynin Chloride (Ditropan Tab) 5 mg PO DAILY [facility] Last Admin: 05/20/18 08:14 Dose: 5 mg Spironolactone (Aldactone) 12.5 mg PO DAILY [facility] Last Admin: 05/20/18 08:14 Dose: 12.5 mg - Labs Labs: 05/20/18 05:11 05/19/18 05:10 PT 14.6 Seconds (9.8-13.1) H 05/14/18 14:05 INR 1.3 05/14/18 14:05 APTT 37.7 Seconds (25.6-37.1) H 05/14/18 14:05 - Constitutional Appears: Well, Non-toxic - Head Exam Head Exam: ATRAUMATIC - Eye Exam Eye Exam: Normal appearance - ENT Exam ENT Exam: Mucous Membranes Moist - Cardiovascular Exam Cardiovascular Exam: REGULAR RHYTHM - Extremities Exam Additional comments: LE focused exam VASC: DP palpable on L, not palpable on R; PT palpable b/l; cap refill <3 seconds to all digits; temp gradient wnl; mild edema noted to b/l LE; hair growth absent DERM: left hallux diabetic chronic ulceration noted, granular base, no drainage appreciate, hyperkeratotic wound margin, no tunneling or tracking, no erythema or streaking, no clinical signs of infection; right LE erythema at the mid leg, circumferential, does not extend to foot, erythema decreasing with superficial wounds in the posterior leg with serous drainage. ORTHO: no pain on palpation of left hallux wound or right LE erythema; previous surgery to left foot noted NEURO: gross and protective sensation diminished b/l Assessment and Plan - Assessment and Plan (Free Text) Assessment: 77M with 1) RLE cellulitis 2) left hallux diabetic chronic ulceration- noninfected Plan: Patient seen and evaluated Discussed with Dr. 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
--- NOTE | 2018-05-21 02:43 | CP.PCM.PN ---
Subjective - Date & Time of Evaluation Date of Evaluation: 05/19/18 Time of Evaluation: 09:00 - Subjective Subjective: NURSE PRACTITIONER COVERING FOR DR. ALTAMIRANO Subjective Review of Systems: Reviewed and no additional remarkable complaints except occasional neck tightness and BLE pain. Objective Vital Signs Stable. Appears: Anxious, Non-toxic, No Acute Distress. Head Exam: NORMAL INSPECTION, normocephalic. Eye Exam: Normal eye inspection, EOMI, PERRLA. Respiratory Exam: NORMAL BREATHING PATTERN, breath sounds clear bilaterally. Cardiovascular Exam: +S1, +S2. RRR. GI & Abdominal Exam: soft, non-tender, non-distended. Neurological Exam: Alert, Awake, Oriented x3. Psychiatric exam: Normal mood. Calm and cooperative. Skin exam: BLE erythema noted with raised reddened areas (Erysipelas) noted. Assessment/Impression/Plan: 1.) Cellulitis -Pt originally scheduled to go back to [facility]. -WBC trending upward and pronounced erysipelas reddened areas noted to BLE. -Plan of care was discussed with Dr. Madrid, infectious disease. At this time, the pt is not medically stable to return to subacute. -Pt was started on Rocephin. -Continue current tx. Objective - Vital Signs/Intake and Output Vital Signs (last 24 hours): Temp Pulse Resp BP Pulse Ox 98.1 F 74 18 133/89 94 L 05/21/18 00:57 05/21/18 00:57 05/21/18 00:57 05/21/18 00:57 05/21/18 00:57 Intake and Output: 05/20/18 05/21/18 18:59 06:59 Intake Total 1560 Output Total 800 Balance 760 - Medications Medications: Current Medications Acetaminophen (Tylenol 325mg Tab) 650 mg PO Q6 PRN PRN Reason: Fever >100.4 F Last Admin: 05/15/18 05:16 Dose: 650 mg Aspirin (Ecotrin) 325 mg PO DAILY [facility] Last Admin: 05/20/18 08:09 Dose: 325 mg Atorvastatin Calcium (Lipitor) 20 mg PO HS [facility] Last Admin: 05/20/18 22:03 Dose: 20 mg Bisoprolol Fumarate (Zebeta) 2.5 mg PO DAILY [facility] Last Admin: 05/20/18 08:10 Dose: 2.5 mg Donepezil HCl (Aricept) 10 mg PO DAILY [facility] Last Admin: 05/20/18 08:14 Dose: 10 mg Furosemide (Lasix) 40 mg IV DAILY [facility] Last Admin: 05/20/18 08:08 Dose: 40 mg Home Med (Dutasteride [Avodart]) 0.5 mg PO DAILY [facility] Last Admin: 05/20/18 08:07 Dose: 0.5 mg Ceftriaxone Sodium 2 gm/ (Sodium Chloride) 100 mls @ 100 mls/hr IVPB DAILY [facility]; Protocol Last Admin: 05/20/18 08:14 Dose: 100 mls/hr Levalbuterol HCl (Xopenex) 0.63 mg INH RQ8 PRN PRN Reason: Shortness of Breath Last Admin: 05/20/18 02:38 Dose: 0.63 mg Lisinopril (Zestril) 10 mg PO DAILY [facility] Last Admin: 05/20/18 08:08 Dose: 10 mg Memantine (Namenda) 10 mg PO Q12 [facility] Last Admin: 05/20/18 22:03 Dose: 10 mg Mupirocin (Bactroban Ointment) 1 applic TOP BID [facility] Last Admin: 05/20/18 16:23 Dose: 1 applic Oxybutynin Chloride (Ditropan Tab) 5 mg PO DAILY [facility] Last Admin: 05/20/18 08:14 Dose: 5 mg Spironolactone (Aldactone) 12.5 mg PO DAILY [facility] Last Admin: 05/20/18 08:14 Dose: 12.5 mg - Labs Labs: 05/20/18 05:11 05/19/18 05:10 PT 14.6 Seconds (9.8-13.1) H 05/14/18 14:05 INR 1.3 05/14/18 14:05 APTT 37.7 Seconds (25.6-37.1) H 05/14/18 14:05 Assessment and Plan (1) Cellulitis Status: Acute
--- NOTE | 2018-05-21 02:49 | CP.PCM.PN ---
Subjective - Date & Time of Evaluation Date of Evaluation: 05/20/18 Time of Evaluation: 09:00 - Subjective Subjective: NURSE PRACTITIONER COVERING FOR DR. ALTAMIRANO Pt seen and assessed at bedside. No new complaints. Pt was recently started on Rocephin, as the BLE had an erysipelas appearance, worsening from days prior. Subjective Review of Systems: Reviewed and no additional remarkable complaints except occasional neck tightness and BLE pain. Objective Vital Signs Stable. Appears: Anxious, Non-toxic, No Acute Distress. Head Exam: NORMAL INSPECTION, normocephalic. Eye Exam: Normal eye inspection, EOMI, PERRLA. Respiratory Exam: NORMAL BREATHING PATTERN, breath sounds clear bilaterally. Cardiovascular Exam: +S1, +S2. RRR. GI & Abdominal Exam: soft, non-tender, non-distended. Neurological Exam: Alert, Awake, Oriented x3. Psychiatric exam: Normal mood. Calm and cooperative. Skin exam: BLE erythema noted with raised reddened areas (Erysipelas) noted. Assessment/Impression/Plan: 1.) Cellulitis -WBC down to 13. -Infectious disease consult input appreciated. -Rocephin was started yesterday. -Wound care to affected extremities; elevate area. -Monitor for additional s/s infection. -Plan after improvement of infection is [facility] at [facility]. Objective - Vital Signs/Intake and Output Vital Signs (last 24 hours): Temp Pulse Resp BP Pulse Ox 98.1 F 74 18 133/89 94 L 05/21/18 00:57 05/21/18 00:57 05/21/18 00:57 05/21/18 00:57 05/21/18 00:57 Intake and Output: 05/20/18 05/21/18 18:59 06:59 Intake Total 1560 Output Total 800 Balance 760 - Medications Medications: Current Medications Acetaminophen (Tylenol 325mg Tab) 650 mg PO Q6 PRN PRN Reason: Fever >100.4 F Last Admin: 05/15/18 05:16 Dose: 650 mg Aspirin (Ecotrin) 325 mg PO DAILY [facility] Last Admin: 05/20/18 08:09 Dose: 325 mg Atorvastatin Calcium (Lipitor) 20 mg PO HS [facility] Last Admin: 05/20/18 22:03 Dose: 20 mg Bisoprolol Fumarate (Zebeta) 2.5 mg PO DAILY [facility] Last Admin: 05/20/18 08:10 Dose: 2.5 mg Donepezil HCl (Aricept) 10 mg PO DAILY [facility] Last Admin: 05/20/18 08:14 Dose: 10 mg Furosemide (Lasix) 40 mg IV DAILY [facility] Last Admin: 05/20/18 08:08 Dose: 40 mg Home Med (Dutasteride [Avodart]) 0.5 mg PO DAILY [facility] Last Admin: 05/20/18 08:07 Dose: 0.5 mg Ceftriaxone Sodium 2 gm/ (Sodium Chloride) 100 mls @ 100 mls/hr IVPB DAILY [facility]; Protocol Last Admin: 05/20/18 08:14 Dose: 100 mls/hr Levalbuterol HCl (Xopenex) 0.63 mg INH RQ8 PRN PRN Reason: Shortness of Breath Last Admin: 05/20/18 02:38 Dose: 0.63 mg Lisinopril (Zestril) 10 mg PO DAILY [facility] Last Admin: 05/20/18 08:08 Dose: 10 mg Memantine (Namenda) 10 mg PO Q12 [facility] Last Admin: 05/20/18 22:03 Dose: 10 mg Mupirocin (Bactroban Ointment) 1 applic TOP BID [facility] Last Admin: 05/20/18 16:23 Dose: 1 applic Oxybutynin Chloride (Ditropan Tab) 5 mg PO DAILY [facility] Last Admin: 05/20/18 08:14 Dose: 5 mg Spironolactone (Aldactone) 12.5 mg PO DAILY [facility] Last Admin: 05/20/18 08:14 Dose: 12.5 mg - Labs Labs: 05/20/18 05:11 05/19/18 05:10 PT 14.6 Seconds (9.8-13.1) H 05/14/18 14:05 INR 1.3 05/14/18 14:05 APTT 37.7 Seconds (25.6-37.1) H 05/14/18 14:05 Assessment and Plan (1) Cellulitis Status: Acute
[2018-05-21 05:48] LABS: BASO # 0.2 K/uL (0.0-0.2); BASO % 0.8 % (0.0-2.0); EOS # 1.2 K/uL (0.0-0.7); EOS % 5.6 % (0.0-4.0); HEMOGLOBIN 13.1 g/dL (12.0-18.0); LYMPH # 6.5 K/uL (1.0-4.3); LYMPH % 31.3 % (20.0-40.0); MEAN CELL VOLUME 89.8 fl (80.0-94.0); MEAN CORPUSCULAR HEMOGLOBIN 30.2 pg (27.0-31.0); MEAN CORPUSCULAR HGB CONC 33.7 g/dL (33.0-37.0); MEAN PLATELET VOLUME 9.3 fl (7.2-11.7); MONO % 4.9 % (0.0-10.0); NEUT % 57.4 % (50.0-75.0); NRBC % 0.7 % (0.0-0.0); RBC 4.32 Mil/uL (4.40-5.90); RED CELL DISTRIBUTION WIDTH 14.8 % (11.5-14.5)
[2018-05-21 05:59] LABS: ALB/GLOB RATIO 0.9 (1.0-2.1); ALBUMIN 3.2 g/dL (3.5-5.0); ALT/SGPT 58 U/L (21-72); AST/SGOT 47 U/L (17-59); BLOOD UREA NITROGEN 26 mg/dl (9-20); CALCIUM 8.4 mg/dL (8.4-10.2); GFR NON-AFRICAN AMERICAN > 60
[2018-05-21 06:11] LABS: WHITE BLOOD COUNT 20.9 K/uL (4.8-10.8)
[2018-05-21] MEDS: Aspirin 325 mg EC Tablets PO SCH (08:34)
[2018-05-21] MEDS: cefTRIAXone 2 GM in Sodium Chloride 0.9% 100 ML IVPB SCH (08:36)
[2018-05-21] MEDS: Enoxaparin 40 mg Syringe SC SCH (09:45)
--- NOTE | 2018-05-21 09:52 | CP.PCM.PN ---
Subjective - Date & Time of Evaluation Date of Evaluation: 05/21/18 Time of Evaluation: 09:52 - Subjective Subjective: ID Note- Patient seen and examined today. He denies any fever or chills. still has extensive erythema of the RLE. Objective - Vital Signs/Intake and Output Vital Signs (last 24 hours): Temp Pulse Resp BP Pulse Ox 97.6 F 74 20 138/83 95 05/21/18 08:40 05/21/18 08:40 05/21/18 08:40 05/21/18 08:40 05/21/18 08:40 Intake and Output: 05/21/18 05/21/18 06:59 18:59 Intake Total 1560 Output Total 800 Balance 760 - Medications Medications: Current Medications Acetaminophen (Tylenol 325mg Tab) 650 mg PO Q6 PRN PRN Reason: Fever >100.4 F Last Admin: 05/15/18 05:16 Dose: 650 mg Aspirin (Ecotrin) 325 mg PO DAILY [facility] Last Admin: 05/21/18 08:34 Dose: 325 mg Atorvastatin Calcium (Lipitor) 20 mg PO HS [facility] Last Admin: 05/20/18 22:03 Dose: 20 mg Bisoprolol Fumarate (Zebeta) 2.5 mg PO DAILY [facility] Last Admin: 05/21/18 08:37 Dose: 2.5 mg Donepezil HCl (Aricept) 10 mg PO DAILY [facility] Last Admin: 05/21/18 08:32 Dose: 10 mg Enoxaparin Sodium (Lovenox) 40 mg SC DAILY [facility]; Protocol Last Admin: 05/21/18 09:45 Dose: 40 mg Furosemide (Lasix) 40 mg IV DAILY [facility] Last Admin: 05/21/18 08:34 Dose: 40 mg Home Med (Dutasteride [Avodart]) 0.5 mg PO DAILY [facility] Last Admin: 05/21/18 08:33 Dose: 0.5 mg Ceftriaxone Sodium 2 gm/ (Sodium Chloride) 100 mls @ 100 mls/hr IVPB DAILY [facility]; Protocol Last Admin: 05/21/18 08:36 Dose: 100 mls/hr Levalbuterol HCl (Xopenex) 0.63 mg INH RQ8 PRN PRN Reason: Shortness of Breath Last Admin: 05/20/18 02:38 Dose: 0.63 mg Lisinopril (Zestril) 10 mg PO DAILY [facility] Last Admin: 05/21/18 08:37 Dose: 10 mg Memantine (Namenda) 10 mg PO Q12 [facility] Last Admin: 05/21/18 08:35 Dose: 10 mg Mupirocin (Bactroban Ointment) 1 applic TOP BID [facility] Last Admin: 05/21/18 09:45 Dose: 1 applic Oxybutynin Chloride (Ditropan Tab) 5 mg PO DAILY [facility] Last Admin: 05/21/18 08:33 Dose: 5 mg Spironolactone (Aldactone) 12.5 mg PO DAILY [facility] Last Admin: 05/21/18 08:31 Dose: 12.5 mg - Labs Labs: - Additional Findings Additional findings: - Constitutional Appears: No Acute Distress - Head Exam Head Exam: ATRAUMATIC - Eye Exam Eye Exam: EOMI - ENT Exam ENT Exam: Normal Oropharynx - Neck Exam Neck exam: Positive for: Full Rom - Respiratory Exam Respiratory Exam: Clear to Auscultation Bilateral, NORMAL BREATHING PATTERN - Cardiovascular Exam Cardiovascular Exam: RRR, +S1, +S2 - GI/Abdominal Exam GI & Abdominal Exam: Normal Bowel Sounds, Soft Additional comments: NT, ND - Extremities Exam Additional comments: RLE erythema prominent eventhough the diameter has decreased the actual erythema is pronounced and few regions seem like small pus filled no discharge seen no tenderness to palpation - Neurological Exam Neurological exam: Alert Additional comments: oriented x 3 Laboratory Results - last 72 hr 05/19/18 05/19/18 05/20/18 05:10 05:10 05:11 WBC 14.5 H 13.0 H RBC 4.37 L 4.35 L Hgb 12.8 12.9 Hct 39.4 39.3 MCV 90.2 90.3 MCH 29.3 29.8 MCHC 32.5 L 33.0 RDW 14.6 H 14.9 H Plt Count 283 295 MPV 8.3 Neut % (Auto) 63.0 Lymph % (Auto) 26.1 [place] % (Auto) 6.9 Eos % (Auto) 3.2 Baso % (Auto) 0.8 Neut # (Auto) 8.2 H Lymph # (Auto) 3.4 [place] # (Auto) 0.9 H Eos # (Auto) 0.4 Baso # (Auto) 0.1 Sodium 138 Potassium 3.7 Chloride 99 Carbon Dioxide 35 H Anion Gap 8 L BUN 21 H Creatinine 0.7 L Est GFR ( Amer) > 60 Est GFR (Non-Af Amer) > 60 Random Glucose 94 Calcium 8.9 Total Bilirubin 0.7 AST 63 H ALT 70 Alkaline Phosphatase 71 Total Protein 6.6 Albumin 3.1 L Globulin 3.5 Albumin/Globulin Ratio 0.9 L 05/21/18 05/21/18 04:20 04:20 WBC 20.9 H D RBC 4.32 L Hgb 13.1 Hct 38.8 MCV 89.8 MCH 30.2 MCHC 33.7 RDW 14.8 H Plt Count 408 H D MPV 9.3 Neut % (Auto) 57.4 Lymph % (Auto) 31.3 [place] % (Auto) 4.9 Eos % (Auto) 5.6 H Baso % (Auto) 0.8 Neut # (Auto) 12.0 H Lymph # (Auto) 6.5 H [place] # (Auto) 1.0 H Eos # (Auto) 1.2 H Baso # (Auto) 0.2 Sodium 138 Potassium 4.1 Chloride 100 Carbon Dioxide 29 Anion Gap 13 BUN 26 H Creatinine 0.9 Est GFR ( Amer) > 60 Est GFR (Non-Af Amer) > 60 Random Glucose 79 Calcium 8.4 Total Bilirubin 0.6 AST 47 ALT 58 Alkaline Phosphatase 61 Total Protein 6.8 Albumin 3.2 L Globulin 3.6 Albumin/Globulin Ratio 0.9 L Microbiology 05/15/18 17:35 Blood-Venous Blood Culture - Final NO GROWTH AFTER 5 DAYS 05/15/18 17:35 Blood-Venous Gram Stain - Final TEST NOT PERFORMED 05/19/18 16:16 Blood-Venous Blood Culture - Preliminary NO GROWTH AFTER 24 HOURS 05/19/18 16:08 Blood-Venous Blood Culture - Preliminary NO GROWTH AFTER 24 HOURS 05/14/18 14:05 Blood-Venous Blood Culture - Final NO GROWTH AFTER 5 DAYS 05/14/18 14:05 Blood-Venous Gram Stain - Final TEST NOT PERFORMED 05/14/18 14:05 Blood-Venous Blood Culture - Final NO GROWTH AFTER 5 DAYS 05/14/18 14:05 Blood-Venous Gram Stain - Final TEST NOT PERFORMED Accession No. : [id number] Patient Name / ID : CHRIS ABBOTT / [id number] Exam Date : 05/21/2018 13:01:31 ( Approved ) Study Comment : Sex / Age : M / 77Y Creator : Vinicius Herman MD Dictator : Vinicius Herman MD [employer] Feeder : Technical Professional : Vinicius Herman MD Approver2 : Report Date : 05/21/2018 14:15:02 My Comment : Date of service: 05/21/2018 PROCEDURE: Radiographs of the right tibia and fibula. HISTORY: rule out fracture COMPARISON: None available TECHNIQUE: Frontal and lateral views obtained. 2 views obtained. FINDINGS: BONES: No fracture or destructive lesion. JOINT SPACES: Unremarkable. OTHER FINDINGS: No retained radiodense foreign body or emphysema soft tissue change are identified. Reticular markings are increased within the subcutaneous fat diffusely which may reflect cellulitis nevertheless. Clinically correlate further. IMPRESSION: No acute fracture or destructive bony lesions seen affecting the right tibia or fibula. Questionable limited cellulitis pattern throughout the right leg. Clinically correlate further. 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 afebrile leukocytosis increasing today. more erysipelas looking blood cx- neg x 5 RLE US- no DVT as per report PLan- continue with ceftriaxone day #4 advise to continue pt. on vancomycin as well #6 advise 15 mg/kg BID. keep trough <15. Also advise to keep RLE elevated while in bed or sitting with 2 pillows and to apply warm compress to the region. d/w AGRICULTURAL RESEARCH DIRECTOR Sharon advise to get CT of the RLE and rule out possible small abscess collection and /or surgical evaluation of the RLE to see if there needs to be small Incision to relieve any underlying pus.
--- NOTE | 2018-05-21 10:36 | PN ---
DATE: 05/21/2018 SUBJECTIVE: The patient is seen and examined. Interim events noted. Consults noted and appreciated. Podiatry followup and intervention noted and appreciated. The patient remains in progressive care unit on telemetry monitoring. Awake, responsive, and feels okay. Denies any specific complaint. No chest pain or shortness of breath. Leg pain is adequately controlled. PHYSICAL EXAMINATION: GENERAL: The patient is in no acute distress. VITAL SIGNS: Stable. HEART: S1 and S2 normal and regular. LUNGS: Good bilateral air exchange. ABDOMEN: Soft and nontender. EXTREMITIES: Cellulitis is much improved. No sign of distal neurovascular compromise or . No calf swelling. No tenderness. CENTRAL NERVOUS SYSTEM: Exam is essentially unchanged. DIAGNOSTIC DATA: Available diagnostic data reviewed. Telemetry monitoring does not show significant arrhythmias. ASSESSMENT AND PLAN: Overall, the patient's general medical condition is stable and improving. Plan as ordered. Pk Ross MD
--- NOTE | 2018-05-21 14:18 | RAD ---
Date of service: 05/21/2018 PROCEDURE: Radiographs of the right tibia and fibula. HISTORY: rule out fracture COMPARISON: None available TECHNIQUE: Frontal and lateral views obtained. 2 views obtained. FINDINGS: BONES: No fracture or destructive lesion. JOINT SPACES: Unremarkable. OTHER FINDINGS: No retained radiodense foreign body or emphysema soft tissue change are identified. Reticular markings are increased within the subcutaneous fat diffusely which may reflect cellulitis nevertheless. Clinically correlate further. IMPRESSION: No acute fracture or destructive bony lesions seen affecting the right tibia or fibula. Questionable limited cellulitis pattern throughout the right leg. Clinically correlate further.
[2018-05-22 05:53] LABS: HEMOGLOBIN 11.9 g/dL (12.0-18.0); MEAN CELL VOLUME 89.9 fl (80.0-94.0); MEAN CORPUSCULAR HEMOGLOBIN 29.3 pg (27.0-31.0); MEAN CORPUSCULAR HGB CONC 32.6 g/dL (33.0-37.0); RBC 4.07 Mil/uL (4.40-5.90); RED CELL DISTRIBUTION WIDTH 14.8 % (11.5-14.5); WHITE BLOOD COUNT 11.7 K/uL (4.8-10.8)
[2018-05-22 06:10] LABS: ALB/GLOB RATIO 0.9 (1.0-2.1); ALT/SGPT 54 U/L (21-72); AST/SGOT 33 U/L (17-59); BLOOD UREA NITROGEN 27 mg/dl (9-20); CALCIUM 8.4 mg/dL (8.4-10.2); GFR NON-AFRICAN AMERICAN > 60
--- NOTE | 2018-05-22 07:54 | CP.PCM.PN ---
Subjective - Date & Time of Evaluation Date of Evaluation: 05/22/18 Time of Evaluation: 06:40 - Subjective Subjective: 77 y/o M seen and examined by bedside. Pt reports feeling OK, right lower leg still red. Pt afebrile with NO acute events overnight. WBC is trending down, 11.7 today. Pt tolerating PO and agreeable to continue physical therapy. Objective - Vital Signs/Intake and Output Vital Signs (last 24 hours): Temp Pulse Resp BP Pulse Ox 98.5 F 77 18 121/75 95 05/22/18 07:47 05/22/18 07:47 05/22/18 07:47 05/22/18 07:47 05/22/18 07:47 - Medications Medications: Current Medications Acetaminophen (Tylenol 325mg Tab) 650 mg PO Q6 PRN PRN Reason: Fever >100.4 F Last Admin: 05/15/18 05:16 Dose: 650 mg Aspirin (Ecotrin) 325 mg PO DAILY [facility] Last Admin: 05/21/18 08:34 Dose: 325 mg Atorvastatin Calcium (Lipitor) 20 mg PO HS [facility] Last Admin: 05/21/18 21:49 Dose: 20 mg Bisoprolol Fumarate (Zebeta) 2.5 mg PO DAILY [facility] Last Admin: 05/21/18 08:37 Dose: 2.5 mg Donepezil HCl (Aricept) 10 mg PO DAILY [facility] Last Admin: 05/21/18 08:32 Dose: 10 mg Enoxaparin Sodium (Lovenox) 40 mg SC DAILY [facility]; Protocol Last Admin: 05/21/18 09:45 Dose: 40 mg Furosemide (Lasix) 40 mg IV DAILY [facility] Last Admin: 05/21/18 08:34 Dose: 40 mg Home Med (Dutasteride [Avodart]) 0.5 mg PO DAILY [facility] Last Admin: 05/21/18 08:33 Dose: 0.5 mg Ceftriaxone Sodium 2 gm/ (Sodium Chloride) 100 mls @ 100 mls/hr IVPB DAILY [facility]; Protocol Last Admin: 05/21/18 08:36 Dose: 100 mls/hr Vancomycin HCl 1,500 mg/ (Sodium Chloride) 500 mls @ 250 mls/hr IVPB Q12H [facility]; Protocol Last Admin: 05/22/18 02:22 Dose: 250 mls/hr Levalbuterol HCl (Xopenex) 0.63 mg INH RQ8 PRN PRN Reason: Shortness of Breath Last Admin: 05/20/18 02:38 Dose: 0.63 mg Lisinopril (Zestril) 10 mg PO DAILY [facility] Last Admin: 05/21/18 08:37 Dose: 10 mg Memantine (Namenda) 10 mg PO Q12 [facility] Last Admin: 05/21/18 21:49 Dose: 10 mg Mupirocin (Bactroban Ointment) 1 applic TOP BID [facility] Last Admin: 05/21/18 16:32 Dose: 1 applic Oxybutynin Chloride (Ditropan Tab) 5 mg PO DAILY [facility] Last Admin: 05/21/18 08:33 Dose: 5 mg Spironolactone (Aldactone) 12.5 mg PO DAILY [facility] Last Admin: 05/21/18 08:31 Dose: 12.5 mg - Labs Labs: 05/22/18 05:05 05/22/18 05:05 PT 14.6 Seconds (9.8-13.1) H 05/14/18 14:05 INR 1.3 05/14/18 14:05 APTT 37.7 Seconds (25.6-37.1) H 05/14/18 14:05 - Constitutional Appears: No Acute Distress - Head Exam Head Exam: ATRAUMATIC - Eye Exam Eye Exam: EOMI - ENT Exam ENT Exam: Mucous Membranes Moist - Neck Exam Neck Exam: Full ROM, Normal Inspection. absent: Meningismus - Respiratory Exam Respiratory Exam: NORMAL BREATHING PATTERN. absent: Rales, Rhonchi, Wheezes, Respiratory Distress - Cardiovascular Exam Cardiovascular Exam: +S1, +S2 - GI/Abdominal Exam GI & Abdominal Exam: Soft. absent: Guarding, Rigid, Tenderness - Extremities Exam Additional comments: Right lower extremity: presence of diffuse blanching erythema on lower leg up to mid mid tibial area. Left lower ectremity: L hallux ulcer is covered by clean/dry and intact ponce ssing. - Neurological Exam Neurological Exam: Alert, Awake Assessment and Plan (1) Alzheimer's dementia Status: Acute (2) BPH (benign prostatic hyperplasia) Status: Acute (3) Cellulitis of leg, right Status: Acute (4) HTN (hypertension) Status: Acute - Assessment and Plan (Free Text) Assessment: 77 y/o M with a PMHx of CVA, alzheimer's dementia and neuropathy initially admitted for evaluation of rhabdomyolysis s/p fall; remains admitted for management of RLE cellulitis. --Echocardiogram: LVEF 45-50%. Transmitral Doppler flow pattern is Grade I- abnormal relaxation pattern. --US doppler RLE: no evidence of DVT PLAN: >RLE cellulitis --WBC trending down. --Afebrile and tolerating PO; however, RLE still erythematous with N much improvement. --ID on board, Dr Madrid. --Podiatry on board, Dr Ocampo. --Blood Cx negative x5. --On IV Rocephin and Vancomycin, and topical Bactroban. --Continue with physical therapy. --MRI of RLE ordered for further evaluation. (possible abscess) >Rhabdomyolysis --Resolved. --Likely s/p fall. >CHF --Stable --Monitor vitals and symptoms. >HTN -Chronic, controlled --C/w home meds --Monitor vital signs >Alzheimer's dementia --Chronic --C/w home meds: donepezil, memantine >BPH --Chronic --C/w home meds: Dutasteride (brought from home), oxybutynin >DVT prophylaxis -Lovenox -Pt encourged ambulation as tolerated with PT Case discussed with Dr Cody Anders PGY-2
[2018-05-22] MEDS: cefTRIAXone 2 GM in Sodium Chloride 0.9% 100 ML IVPB SCH (08:36)
[2018-05-22] MEDS: Aspirin 325 mg EC Tablets PO SCH (08:38)
[2018-05-22] MEDS: Enoxaparin 40 mg Syringe SC SCH (08:38)
--- NOTE | 2018-05-22 12:03 | CP.PCM.PN ---
Subjective - Date & Time of Evaluation Date of Evaluation: 05/22/18 Time of Evaluation: 12:03 - Subjective Subjective: ID Note- Patient seen and examined today. he denies any fever or chills and states his right leg is still red but less swollen today. Objective - Vital Signs/Intake and Output Vital Signs (last 24 hours): Temp Pulse Resp BP Pulse Ox 98.5 F 85 18 121/75 95 05/22/18 07:47 05/22/18 09:00 05/22/18 07:47 05/22/18 08:39 05/22/18 07:47 - Medications Medications: Current Medications Acetaminophen (Tylenol 325mg Tab) 650 mg PO Q6 PRN PRN Reason: Fever >100.4 F Last Admin: 05/15/18 05:16 Dose: 650 mg Aspirin (Ecotrin) 325 mg PO DAILY [facility] Last Admin: 05/22/18 08:38 Dose: 325 mg Atorvastatin Calcium (Lipitor) 20 mg PO HS [facility] Last Admin: 05/21/18 21:49 Dose: 20 mg Bisoprolol Fumarate (Zebeta) 2.5 mg PO DAILY [facility] Last Admin: 05/22/18 08:37 Dose: 2.5 mg Donepezil HCl (Aricept) 10 mg PO DAILY [facility] Last Admin: 05/22/18 09:28 Dose: 10 mg Enoxaparin Sodium (Lovenox) 40 mg SC DAILY [facility]; Protocol Last Admin: 05/22/18 08:38 Dose: 40 mg Furosemide (Lasix) 40 mg IV DAILY [facility] Last Admin: 05/22/18 08:39 Dose: 40 mg Home Med (Dutasteride [Avodart]) 0.5 mg PO DAILY [facility] Last Admin: 05/22/18 08:37 Dose: 0.5 mg Ceftriaxone Sodium 2 gm/ (Sodium Chloride) 100 mls @ 100 mls/hr IVPB DAILY [facility]; Protocol Last Admin: 05/22/18 08:36 Dose: 100 mls/hr Vancomycin HCl 1,500 mg/ (Sodium Chloride) 500 mls @ 250 mls/hr IVPB Q12H [facility]; Protocol Last Admin: 05/22/18 02:22 Dose: 250 mls/hr Levalbuterol HCl (Xopenex) 0.63 mg INH RQ8 PRN PRN Reason: Shortness of Breath Last Admin: 05/20/18 02:38 Dose: 0.63 mg Lisinopril (Zestril) 10 mg PO DAILY [facility] Last Admin: 05/22/18 08:37 Dose: 10 mg Memantine (Namenda) 10 mg PO Q12 [facility] Last Admin: 05/22/18 08:37 Dose: 10 mg Mupirocin (Bactroban Ointment) 1 applic TOP BID [facility] Last Admin: 05/22/18 08:38 Dose: 1 applic Oxybutynin Chloride (Ditropan Tab) 5 mg PO DAILY [facility] Last Admin: 05/22/18 08:37 Dose: 5 mg Spironolactone (Aldactone) 12.5 mg PO DAILY [facility] Last Admin: 05/22/18 08:37 Dose: 12.5 mg - Labs Labs: - Additional Findings Additional findings: - Constitutional Appears: No Acute Distress - Head Exam Head Exam: ATRAUMATIC - Eye Exam Eye Exam: EOMI - ENT Exam ENT Exam: Normal Oropharynx - Neck Exam Neck exam: Positive for: Full Rom - Respiratory Exam Respiratory Exam: Clear to Auscultation Bilateral, NORMAL BREATHING PATTERN - Cardiovascular Exam Cardiovascular Exam: RRR, +S1, +S2 - GI/Abdominal Exam GI & Abdominal Exam: Normal Bowel Sounds, Soft Additional comments: NT, ND - Extremities Exam Additional comments: RLE erythema still with demarcation but much decreased in size and the edema is decreasing as well no discharge seen no tenderness to palpation - Neurological Exam Neurological exam: Alert Additional comments: oriented x 3 Laboratory Results - last 72 hr 05/20/18 05/21/18 05/21/18 05:11 04:20 04:20 WBC 13.0 H 20.9 H D RBC 4.35 L 4.32 L Hgb 12.9 13.1 Hct 39.3 38.8 MCV 90.3 89.8 MCH 29.8 30.2 MCHC 33.0 33.7 RDW 14.9 H 14.8 H Plt Count 295 408 H D MPV 8.3 9.3 Neut % (Auto) 63.0 57.4 Lymph % (Auto) 26.1 31.3 Cotton % (Auto) 6.9 4.9 Eos % (Auto) 3.2 5.6 H Baso % (Auto) 0.8 0.8 Neut # (Auto) 8.2 H 12.0 H Lymph # (Auto) 3.4 6.5 H Cotton # (Auto) 0.9 H 1.0 H Eos # (Auto) 0.4 1.2 H Baso # (Auto) 0.1 0.2 Sodium 138 Potassium 4.1 Chloride 100 Carbon Dioxide 29 Anion Gap 13 BUN 26 H Creatinine 0.9 Est GFR ( Amer) > 60 Est GFR (Non-Af Amer) > 60 POC Glucose (mg/dL) Random Glucose 79 Calcium 8.4 Total Bilirubin 0.6 AST 47 ALT 58 Alkaline Phosphatase 61 Total Protein 6.8 Albumin 3.2 L Globulin 3.6 Albumin/Globulin Ratio 0.9 L Vancomycin Trough 05/22/18 05/22/18 05/22/18 05:05 05:05 05:55 WBC 11.7 H RBC 4.07 L Hgb 11.9 L Hct 36.6 MCV 89.9 MCH 29.3 MCHC 32.6 L RDW 14.8 H Plt Count 295 D MPV Neut % (Auto) Lymph % (Auto) Cotton % (Auto) Eos % (Auto) Baso % (Auto) Neut # (Auto) Lymph # (Auto) Cotton # (Auto) Eos # (Auto) Baso # (Auto) Sodium 139 Potassium 4.2 Chloride 101 Carbon Dioxide 34 H Anion Gap 8 L BUN 27 H Creatinine 1.0 Est GFR ( Amer) > 60 Est GFR (Non-Af Amer) > 60 POC Glucose (mg/dL) 85 Random Glucose 88 Calcium 8.4 Total Bilirubin 0.3 AST 33 ALT 54 Alkaline Phosphatase 59 Total Protein 6.3 Albumin 3.0 L Globulin 3.4 Albumin/Globulin Ratio 0.9 L Vancomycin Trough 05/22/18 08:00 WBC RBC Hgb Hct MCV MCH MCHC RDW Plt Count MPV Neut % (Auto) Lymph % (Auto) Cotton % (Auto) Eos % (Auto) Baso % (Auto) Neut # (Auto) Lymph # (Auto) Cotton # (Auto) Eos # (Auto) Baso # (Auto) Sodium Potassium Chloride Carbon Dioxide Anion Gap BUN Creatinine Est GFR ( Amer) Est GFR (Non-Af Amer) POC Glucose (mg/dL) Random Glucose Calcium Total Bilirubin AST ALT Alkaline Phosphatase Total Protein Albumin Globulin Albumin/Globulin Ratio Vancomycin Trough 24.1 H Microbiology 05/19/18 16:16 Blood-Venous Blood Culture - Preliminary NO GROWTH AFTER 3 DAYS 04/13/19 16:08 Blood-Venous Blood Culture - Preliminary NO GROWTH AFTER 3 DAYS 05/15/18 17:35 Blood-Venous Blood Culture - Final NO GROWTH AFTER 5 DAYS 05/15/18 17:35 Blood-Venous Gram Stain - Final TEST NOT PERFORMED 05/14/18 14:05 Blood-Venous Blood Culture - Final NO GROWTH AFTER 5 DAYS 05/14/18 14:05 Blood-Venous Gram Stain - Final TEST NOT PERFORMED 05/14/18 14:05 Blood-Venous Blood Culture - Final NO GROWTH AFTER 5 DAYS 05/14/18 14:05 Blood-Venous Gram Stain - Final TEST NOT PERFORMED Assessment and Plan (1) Cellulitis of leg, right Status: Acute (2) Erysipelas Status: Acute - Assessment and Plan (Free Text) Assessment: A/P- 77 year old male with PMH of CVA, 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 afebrile leukocytosis trending down today Erysipelas improving slowly. blood cx- neg x 5 RLE US- no DVT as per report PLan- continue with ceftriaxone day #5 Completed 7 days of Iv vanco. d/c vanco now. Also advise to keep RLE elevated while in bed or sitting with 2 pillows and to apply warm compress to the region.
[2018-05-22] MEDS ORDERED: Gadodiamide 287 MG/ML VIAL (15ML) IV ONE (17:19)
[2018-05-23 05:51] LABS: HEMOGLOBIN 11.7 g/dL (12.0-18.0); MEAN CELL VOLUME 90.1 fl (80.0-94.0); MEAN CORPUSCULAR HEMOGLOBIN 29.4 pg (27.0-31.0); MEAN CORPUSCULAR HGB CONC 32.6 g/dL (33.0-37.0); RBC 3.98 Mil/uL (4.40-5.90); RED CELL DISTRIBUTION WIDTH 14.5 % (11.5-14.5); WHITE BLOOD COUNT 11.8 K/uL (4.8-10.8)
[2018-05-23 05:59] LABS: BLOOD UREA NITROGEN 26 mg/dl (9-20); CALCIUM 8.5 mg/dL (8.4-10.2); GFR NON-AFRICAN AMERICAN > 60
[2018-05-23 07:53] VITALS: RESP 18
[2018-05-23] MEDS: cefTRIAXone 2 GM in Sodium Chloride 0.9% 100 ML IVPB SCH (08:40)
[2018-05-23] MEDS: Enoxaparin 40 mg Syringe SC SCH (08:41)
[2018-05-23] MEDS: Aspirin 325 mg EC Tablets PO SCH (08:43)
--- NOTE | 2018-05-23 09:04 | CP.PCM.PN ---
Subjective - Date & Time of Evaluation Date of Evaluation: 05/23/18 Time of Evaluation: 07:00 - Subjective Subjective: 77 y/o M was seen and examined by bedside with Dr Ross. Pt reports feel well and that his R lower leg is less heavy. Pt afebrile, tolerating PO with NO acute complaints overnight. --> To clarify, pt met criteria for sepsis upon admission: tachycardia, elevated WBC's, lactic acid increased and RLE cellulitis as source of infection. Objective - Vital Signs/Intake and Output Vital Signs (last 24 hours): Temp Pulse Resp BP Pulse Ox 99.2 F 69 18 131/80 95 05/23/18 07:52 05/23/18 08:42 05/23/18 07:52 05/23/18 08:42 05/23/18 07:52 - Medications Medications: Current Medications Acetaminophen (Tylenol 325mg Tab) 650 mg PO Q6 PRN PRN Reason: Fever >100.4 F Last Admin: 05/15/18 05:16 Dose: 650 mg Aspirin (Ecotrin) 325 mg PO DAILY [facility] Last Admin: 05/23/18 08:43 Dose: 325 mg Atorvastatin Calcium (Lipitor) 20 mg PO HS [facility] Last Admin: 05/22/18 21:13 Dose: 20 mg Bisoprolol Fumarate (Zebeta) 2.5 mg PO DAILY [facility] Last Admin: 05/23/18 08:41 Dose: 2.5 mg Donepezil HCl (Aricept) 10 mg PO DAILY [facility] Last Admin: 05/23/18 08:43 Dose: 10 mg Enoxaparin Sodium (Lovenox) 40 mg SC DAILY [facility] [place]; Protocol Last Admin: 05/23/18 08:41 Dose: 40 mg Furosemide (Lasix) 40 mg IV DAILY [facility] [place] Last Admin: 05/23/18 08:42 Dose: 40 mg Home Med (Dutasteride [Avodart]) 0.5 mg PO DAILY [facility] [place] Last Admin: 05/23/18 08:41 Dose: 0.5 mg Ceftriaxone Sodium 2 gm/ (Sodium Chloride) 100 mls @ 100 mls/hr IVPB DAILY [facility]; Protocol Last Admin: 05/23/18 08:40 Dose: 100 mls/hr Levalbuterol HCl (Xopenex) 0.63 mg INH RQ8 PRN PRN Reason: Shortness of Breath Last Admin: 05/20/18 02:38 Dose: 0.63 mg Lisinopril (Zestril) 10 mg PO DAILY [facility] [place] Last Admin: 05/23/18 08:42 Dose: 10 mg Memantine (Namenda) 10 mg PO Q12 [facility] Last Admin: 05/23/18 08:43 Dose: 10 mg Mupirocin (Bactroban Ointment) 1 applic TOP BID [facility] Last Admin: 05/23/18 08:44 Dose: 1 applic Oxybutynin Chloride (Ditropan Tab) 5 mg PO DAILY [facility] Last Admin: 05/23/18 08:43 Dose: 5 mg Spironolactone (Aldactone) 12.5 mg PO DAILY [facility] Last Admin: 05/23/18 08:41 Dose: 12.5 mg - Labs Labs: 05/23/18 05:10 05/23/18 05:10 PT 14.6 Seconds (9.8-13.1) H 05/14/18 14:05 INR 1.3 05/14/18 14:05 APTT 37.7 Seconds (25.6-37.1) H 05/14/18 14:05 - Additional Findings Additional findings: - Constitutional Appears: No Acute Distress - Head Exam Head Exam: ATRAUMATIC - Eye Exam Eye Exam: EOMI - ENT Exam ENT Exam: Mucous Membranes Moist - Neck Exam Neck Exam: Full ROM, Normal Inspection. absent: Meningismus - Respiratory Exam Respiratory Exam: NORMAL BREATHING PATTERN. absent: Rales, Rhonchi, Wheezes, Respiratory Distress - Cardiovascular Exam Cardiovascular Exam: +S1, +S2 - GI/Abdominal Exam GI & Abdominal Exam: Soft. absent: Guarding, Rigid, Tenderness - Extremities Exam Additional comments: -Right lower extremity: presence of diffuse blanching erythema on lower leg up to mid mid tibial area. There is decreased edema and erythema in comparison with yesterday. SILT. -Left lower ectremity: L hallux ulcer is covered by clean/dry and intact dressing. - Neurological Exam Neurological Exam: Alert, Awake Assessment and Plan (1) Cellulitis of leg, right Status: Acute (2) Alzheimer's dementia Status: Chronic (3) BPH (benign prostatic hyperplasia) Status: Chronic (4) HTN (hypertension) Status: Chronic - Assessment and Plan (Free Text) Assessment: 77 y/o M with a PMHx of CVA, alzheimer's dementia and neuropathy initially admitted for evaluation of rhabdomyolysis s/p fall; remains admitted for management of RLE cellulitis. --Echocardiogram: LVEF 45-50%. Transmitral Doppler flow pattern is Grade I- abnormal relaxation pattern. --US doppler RLE: no evidence of DVT PLAN: >RLE cellulitis --Improving --WBC trending down, 11.8-today. --ID on board, Dr Madrid. --Podiatry on board, Dr Ocampo. --Blood Cx negative x5. --MRI of RLE showed NO abscess, see full report. --On IV Rocephin and topical Bactroban. --Continue with physical therapy. --Considering subacute rehab upon discharge. >Rhabdomyolysis --Resolved. --Likely s/p fall. >CHF, systolic and diastolic, mild --Stable. --ECHO: LV systolic function is mildly impaired, LVEF 45-50%. Transmitral Doppler flow pattern is Grade I-abnormal relaxation pattern. --Monitor vitals and symptoms. >HTN -Chronic, controlled --C/w home meds --Monitor vital signs >Alzheimer's dementia --Chronic --C/w home meds: donepezil, memantine >BPH --Chronic --C/w home meds: Dutasteride (brought from home), oxybutynin >DVT prophylaxis -Lovenox -Pt encourged ambulation as tolerated with PT Case discussed with Dr Cody Anders PGY-2
--- NOTE | 2018-05-23 09:36 | CP.PCM.PN ---
Subjective - Date & Time of Evaluation Date of Evaluation: 05/23/18 Time of Evaluation: 09:36 - Subjective Subjective: ID note- Patient seen and examined today. he denies any fever or chills. feels better. Objective - Vital Signs/Intake and Output Vital Signs (last 24 hours): Temp Pulse Resp BP Pulse Ox 99.2 F 69 18 131/80 95 05/23/18 07:52 05/23/18 08:42 05/23/18 07:52 05/23/18 08:42 05/23/18 07:52 - Medications Medications: Current Medications Acetaminophen (Tylenol 325mg Tab) 650 mg PO Q6 PRN PRN Reason: Fever >100.4 F Last Admin: 05/15/18 05:16 Dose: 650 mg Aspirin (Ecotrin) 325 mg PO DAILY [facility] Last Admin: 05/23/18 08:43 Dose: 325 mg Atorvastatin Calcium (Lipitor) 20 mg PO HS [facility] Last Admin: 05/22/18 21:13 Dose: 20 mg Bisoprolol Fumarate (Zebeta) 2.5 mg PO DAILY [facility] Last Admin: 05/23/18 08:41 Dose: 2.5 mg Donepezil HCl (Aricept) 10 mg PO DAILY [facility] Last Admin: 05/23/18 08:43 Dose: 10 mg Enoxaparin Sodium (Lovenox) 40 mg SC DAILY [facility]; Protocol Last Admin: 05/23/18 08:41 Dose: 40 mg Furosemide (Lasix) 40 mg IV DAILY [facility] Last Admin: 05/23/18 08:42 Dose: 40 mg Home Med (Dutasteride [Avodart]) 0.5 mg PO DAILY [facility] Last Admin: 05/23/18 08:41 Dose: 0.5 mg Ceftriaxone Sodium 2 gm/ (Sodium Chloride) 100 mls @ 100 mls/hr IVPB DAILY [facility]; Protocol Last Admin: 05/23/18 08:40 Dose: 100 mls/hr Levalbuterol HCl (Xopenex) 0.63 mg INH RQ8 PRN PRN Reason: Shortness of Breath Last Admin: 05/20/18 02:38 Dose: 0.63 mg Lisinopril (Zestril) 10 mg PO DAILY [facility] Last Admin: 05/23/18 08:42 Dose: 10 mg Memantine (Namenda) 10 mg PO Q12 [facility] Last Admin: 05/23/18 08:43 Dose: 10 mg Mupirocin (Bactroban Ointment) 1 applic TOP BID [facility] Last Admin: 05/23/18 08:44 Dose: 1 applic Oxybutynin Chloride (Ditropan Tab) 5 mg PO DAILY [facility] Last Admin: 05/23/18 08:43 Dose: 5 mg Spironolactone (Aldactone) 12.5 mg PO DAILY [facility] Last Admin: 05/23/18 08:41 Dose: 12.5 mg - Labs Labs: - Additional Findings Additional findings: - Constitutional Appears: No Acute Distress - Head Exam Head Exam: ATRAUMATIC - Eye Exam Eye Exam: EOMI - ENT Exam ENT Exam: Normal Oropharynx - Neck Exam Neck exam: Positive for: Full Rom - Respiratory Exam Respiratory Exam: Clear to Auscultation Bilateral, NORMAL BREATHING PATTERN - Cardiovascular Exam Cardiovascular Exam: RRR, +S1, +S2 - GI/Abdominal Exam GI & Abdominal Exam: Normal Bowel Sounds, Soft Additional comments: NT, ND - Extremities Exam Additional comments: RLE erythema much decreased in size and the edema is decreasing as well no discharge seen no tenderness to palpation - Neurological Exam Neurological exam: Alert Additional comments: oriented x 3 Laboratory Results - last 72 hr 05/21/18 05/21/18 05/22/18 04:20 04:20 05:05 WBC 20.9 H D 11.7 H RBC 4.32 L 4.07 L Hgb 13.1 11.9 L Hct 38.8 36.6 MCV 89.8 89.9 MCH 30.2 29.3 MCHC 33.7 32.6 L RDW 14.8 H 14.8 H Plt Count 408 H D 295 D MPV 9.3 Neut % (Auto) 57.4 Lymph % (Auto) 31.3 Meagher % (Auto) 4.9 Eos % (Auto) 5.6 H Baso % (Auto) 0.8 Neut # (Auto) 12.0 H Lymph # (Auto) 6.5 H Meagher # (Auto) 1.0 H Eos # (Auto) 1.2 H Baso # (Auto) 0.2 Sodium 138 Potassium 4.1 Chloride 100 Carbon Dioxide 29 Anion Gap 13 BUN 26 H Creatinine 0.9 Est GFR ( Amer) > 60 Est GFR (Non-Af Amer) > 60 POC Glucose (mg/dL) Random Glucose 79 Calcium 8.4 Total Bilirubin 0.6 AST 47 ALT 58 Alkaline Phosphatase 61 Total Protein 6.8 Albumin 3.2 L Globulin 3.6 Albumin/Globulin Ratio 0.9 L Vancomycin Trough 05/22/18 05/22/18 05/22/18 05:05 05:55 08:00 WBC RBC Hgb Hct MCV MCH MCHC RDW Plt Count MPV Neut % (Auto) Lymph % (Auto) Meagher % (Auto) Eos % (Auto) Baso % (Auto) Neut # (Auto) Lymph # (Auto) Meagher # (Auto) Eos # (Auto) Baso # (Auto) Sodium 139 Potassium 4.2 Chloride 101 Carbon Dioxide 34 H Anion Gap 8 L BUN 27 H Creatinine 1.0 Est GFR ( Amer) > 60 Est GFR (Non-Af Amer) > 60 POC Glucose (mg/dL) 85 Random Glucose 88 Calcium 8.4 Total Bilirubin 0.3 AST 33 ALT 54 Alkaline Phosphatase 59 Total Protein 6.3 Albumin 3.0 L Globulin 3.4 Albumin/Globulin Ratio 0.9 L Vancomycin Trough 24.1 H 05/23/18 05/23/18 05:10 05:10 WBC 11.8 H RBC 3.98 L Hgb 11.7 L Hct 35.8 MCV 90.1 MCH 29.4 MCHC 32.6 L RDW 14.5 Plt Count 311 MPV Neut % (Auto) Lymph % (Auto) Meagher % (Auto) Eos % (Auto) Baso % (Auto) Neut # (Auto) Lymph # (Auto) Meagher # (Auto) Eos # (Auto) Baso # (Auto) Sodium 138 Potassium 4.2 Chloride 103 Carbon Dioxide 31 H Anion Gap 8 L BUN 26 H Creatinine 1.0 Est GFR ( Amer) > 60 Est GFR (Non-Af Amer) > 60 POC Glucose (mg/dL) Random Glucose 87 Calcium 8.5 Total Bilirubin AST ALT Alkaline Phosphatase Total Protein Albumin Globulin Albumin/Globulin Ratio Vancomycin Trough Microbiology 05/19/18 16:16 Blood-Venous Blood Culture - Preliminary NO GROWTH AFTER 3 DAYS 05/19/18 16:08 Blood-Venous Blood Culture - Preliminary NO GROWTH AFTER 3 DAYS 05/15/18 17:35 Blood-Venous Blood Culture - Final NO GROWTH AFTER 5 DAYS 05/15/18 17:35 Blood-Venous Gram Stain - Final TEST NOT PERFORMED 05/14/18 14:05 Blood-Venous Blood Culture - Final NO GROWTH AFTER 5 DAYS 05/14/18 14:05 Blood-Venous Gram Stain - Final TEST NOT PERFORMED 05/14/18 14:05 Blood-Venous Blood Culture - Final NO GROWTH AFTER 5 DAYS 05/14/18 14:05 Blood-Venous Gram Stain - Final TEST NOT PERFORMED Assessment and Plan (1) Cellulitis of leg, right Status: Acute (2) Erysipelas Status: Acute - Assessment and Plan (Free Text) Assessment: A/P- 77 year old male with PMH of CVA, 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 afebrile leukocytosis much improved almost resolved. Erysipelas improving slowly. blood cx- neg x 5 RLE US- no DVT as per report MRI of the RLE- no abscess as per report. PLan- continue with ceftriaxone day #6 Completed 7 days of Iv vanco. patient can be d/c to [facility] on ceftriaxone 2 gram IV daily for another 7 days. Also advise to keep RLE elevated while in bed or sitting with 2 pillows and to apply warm compress to the region. all above d/w patient and she verbalizes full understanding of all above. All above also d/w [employer] ivan Lieberman.
[2018-05-23 11:57] VITALS: BP 109/71; PULSE 74; TEMP 98.3; O2SAT 96
--- NOTE | 2018-05-23 14:14 | CP.PCM.DIS ---
Provider - Provider Date of Admission: 05/14/18 16:37 Attending physician: Pk Ross MD Consults: 05/14/18 16:39 Infectious Disease Consult Stat Comment: Consulting Provider: Abiola Madrid Consulting Physician: Abiola Madrid Reason for Consult: cellultitis, infection 05/15/18 04:48 Case Management Referral Routine Comment: Physician Instructions: Reason For Exam: Lives alone. Needs homemaker. Reason for Referral: [facility] Eval 05/15/18 04:49 Social Work Referral Routine Comment: Lives alone. Needs homemaker Physician Instructions: Reason For Exam: Lives alone. Needs homemaker. 05/15/18 08:33 Cardiology Consult Routine Comment: Consulting Provider: Jamal Marie Consulting Physician: Jamal Marie Reason for Consult: chf with [facility] [id number]; Dr. Ross 05/15/18 08:39 Podiatry Consult Routine Comment: Consulting Provider: Kimani Cobb Consulting Physician: Kimani Cobb Reason for Consult: L foot cellulitis Time Spent in preparation of Discharge (in minutes): 35 Diagnosis - Discharge Diagnosis (1) Cellulitis of leg, right Status: Acute Comment: Imroving (2) Alzheimer's dementia Status: Chronic (3) BPH (benign prostatic hyperplasia) Status: Chronic (4) HTN (hypertension) Status: Chronic Hospital Course - Lab Results Lab Results: Micro Results 05/19/18 16:16 Blood-Venous Blood Culture - Preliminary NO GROWTH AFTER 3 DAYS 05/19/18 16:08 Blood-Venous Blood Culture - Preliminary NO GROWTH AFTER 3 DAYS 05/15/18 17:35 Blood-Venous Blood Culture - Final NO GROWTH AFTER 5 DAYS 05/15/18 17:35 Blood-Venous Gram Stain - Final TEST NOT PERFORMED 05/14/18 14:05 Blood-Venous Blood Culture - Final NO GROWTH AFTER 5 DAYS 05/14/18 14:05 Blood-Venous Gram Stain - Final TEST NOT PERFORMED 05/14/18 14:05 Blood-Venous Blood Culture - Final NO GROWTH AFTER 5 DAYS 05/14/18 14:05 Blood-Venous Gram Stain - Final TEST NOT PERFORMED Most Recent Lab Values WBC 11.8 K/uL (4.8-10.8) H 05/23/18 05:10 RBC 3.98 Mil/uL (4.40-5.90) L 05/23/18 05:10 Hgb 11.7 g/dL (12.0-18.0) L 05/23/18 05:10 Hct 35.8 % (35.0-51.0) 05/23/18 05:10 MCV 90.1 fl (80.0-94.0) 05/23/18 05:10 MCH 29.4 pg (27.0-31.0) 05/23/18 05:10 MCHC 32.6 g/dL (33.0-37.0) L 05/23/18 05:10 RDW 14.5 % (11.5-14.5) 05/23/18 05:10 Plt Count 311 K/uL (130-400) 05/23/18 05:10 MPV 9.3 fl (7.2-11.7) 05/21/18 04:20 Neut % (Auto) 57.4 % (50.0-75.0) 05/21/18 04:20 Lymph % (Auto) 31.3 % (20.0-40.0) 05/21/18 04:20 [place] % (Auto) 4.9 % (0.0-10.0) 05/21/18 04:20 Eos % (Auto) 5.6 % (0.0-4.0) H 05/21/18 04:20 Baso % (Auto) 0.8 % (0.0-2.0) 05/21/18 04:20 Neut # (Auto) 12.0 K/uL (1.8-7.0) H 05/21/18 04:20 Lymph # (Auto) 6.5 K/uL (1.0-4.3) H 05/21/18 04:20 [place] # (Auto) 1.0 K/uL (0.0-0.8) H 05/21/18 04:20 Eos # (Auto) 1.2 K/uL (0.0-0.7) H 05/21/18 04:20 Baso # (Auto) 0.2 K/uL (0.0-0.2) 05/21/18 04:20 PT 14.6 Seconds (9.8-13.1) H 05/14/18 14:05 INR 1.3 05/14/18 14:05 APTT 37.7 Seconds (25.6-37.1) H 05/14/18 14:05 pO2 33 mm/Hg (30-55) 05/14/18 14:10 VBG pH 7.44 (7.32-7.43) H 05/14/18 14:10 VBG pCO2 39 mmHg (40-60) L 05/14/18 14:10 VBG HCO3 25.9 mmol/L 05/14/18 14:10 VBG Total CO2 27.7 mmol/L (22-28) 05/14/18 14:10 VBG O2 Sat (Calc) 69.1 % (40-65) H 05/14/18 14:10 VBG Base Excess 2.3 mmol/L (0.0-2.0) H 05/14/18 14:10 VBG Potassium 4.9 mmol/L (3.6-5.2) 05/14/18 14:10 Sodium 131.0 mmol/L (132-148) L 05/14/18 14:10 Chloride 101.0 mmol/L (98-107) 05/14/18 14:10 Glucose 119 mg/dL (75-110) H 05/14/18 14:10 Lactate 2.3 mmol/L (0.7-2.1) H 05/14/18 14:10 FiO2 21.0 % 05/14/18 14:10 Sodium 138 mmol/l (132-148) 05/23/18 05:10 Potassium 4.2 MMOL/L (3.6-5.0) 05/23/18 05:10 Chloride 103 mmol/L (98-107) 05/23/18 05:10 Carbon Dioxide 31 mmol/L (22-30) H 05/23/18 05:10 Anion Gap 8 (10-20) L 05/23/18 05:10 BUN 26 mg/dl (9-20) H 05/23/18 05:10 Creatinine 1.0 mg/dl (0.8-1.5) 05/23/18 05:10 Est GFR ( Amer) > 60 05/23/18 05:10 Est GFR (Non-Af Amer) > 60 05/23/18 05:10 POC Glucose (mg/dL) 85 mg/dL (65-110) 05/22/18 05:55 Random Glucose 87 mg/dL (75-110) 05/23/18 05:10 Hemoglobin A1c 5.5 % (4.2-6.5) 05/15/18 04:35 Lactic Acid 2.1 mmol/L (0.7-2.1) 05/16/18 09:40 Calcium 8.5 mg/dL (8.4-10.2) 05/23/18 05:10 Total Bilirubin 0.3 mg/dl (0.2-1.3) 05/22/18 05:05 AST 33 U/L (17-59) 05/22/18 05:05 ALT 54 U/L (21-72) 05/22/18 05:05 Alkaline Phosphatase 59 U/L (38-126) 05/22/18 05:05 Total Creatine Kinase 88 U/L (55-170) 05/18/18 04:20 Troponin I 0.0450 ng/mL (0.00-0.120) 05/14/18 14:05 NT-Pro-B Natriuret Pep 718 pg/ml (0-900) 05/16/18 09:40 Total Protein 6.3 G/DL (6.3-8.2) 05/22/18 05:05 Albumin 3.0 g/dL (3.5-5.0) L 05/22/18 05:05 Globulin 3.4 gm/dL (2.2-3.9) 05/22/18 05:05 Albumin/Globulin Ratio 0.9 (1.0-2.1) L 05/22/18 05:05 Triglycerides 104 mg/DL (0-149) 05/15/18 04:35 Cholesterol 93 mg/dL (0-199) 05/15/18 04:35 LDL Cholesterol Direct 37 mg/dL (0-129) 05/15/18 04:35 HDL Cholesterol 31 MG/DL (30-70) 05/15/18 04:35 Vitamin B12 392 pg/mL (239-931) 05/15/18 04:35 Thyroxine (T4) 6.84 ug/dl (5.5-11.0) 05/15/18 04:35 TSH 3rd Generation 2.96 mIU/ML (0.46-4.68) 05/15/18 04:35 Venous Blood Potassium 4.9 mmol/L (3.6-5.2) 05/14/18 14:10 Urine Color Yellow (YELLOW) 05/15/18 21:00 Urine Clarity Slighty-cloudy (Clear) 05/15/18 21:00 Urine pH 5.0 (5.0-8.0) 05/15/18 21:00 Ur Specific [place] 1.026 (1.003-1.030) 05/15/18 21:00 Urine Protein 30 mg/dL (NEGATIVE) 05/15/18 21:00 Urine Glucose (UA) Neg mg/dL (NEGATIVE) 05/15/18 21:00 Urine Ketones Negative mg/dL (NEGATIVE) 05/15/18 21:00 Urine Blood Moderate (NEGATIVE) 05/15/18 21:00 Urine Nitrate Negative (NEGATIVE) 05/15/18 21:00 Urine Bilirubin Negative (NEGATIVE) 05/15/18 21:00 Urine Urobilinogen 0.2-1.0 mg/dL (0.2-1.0) 05/15/18 21:00 Ur Leukocyte Esterase Neg Chris/uL (Negative) 05/15/18 21:00 Urine RBC (Auto) 12 /hpf (0-3) H 05/15/18 21:00 Urine Microscopic WBC 2 /hpf (0-5) 05/15/18 21:00 Hyaline Casts 0-2 /hpf (0-2) 05/15/18 21:00 Vancomycin Trough 24.1 ug/mL (5.0-10.0) H 05/22/18 08:00 Influenza Typ A,B (EIA) Negative for flu a/b (NEGATIVE) 05/14/18 14:00 - Hospital Course Hospital Course: 77 y/o M with a PMHx of CVA, alzheimer's dementia and neuropathy initially admitted for evaluation of rhabdomyolysis s/p fall; remained admitted for management of RLE cellulitis. Rhabdomyolysis resolved with IV fluids. X-rays and CT of head, spin, pelvis, b/l hip and L foot were unremarkable. --Echocardiogram: LVEF 45-50%. Transmitral Doppler flow pattern is Grade I-abn ormal relaxation pattern. --US doppler RLE: no evidence of DVT --Blood Cx negative x5. --MRI of RLE showed NO abscess, see full report. --Pt finished course of IV Vancomycin, IV Rocephin and topical Bactroban. --Today, pt was seen and evaluated with Dr Ross. Pt reports improvement of RLE redness and swelling. Pt afebrile, tolerating PO, able to complete physical therapy sessions. ID specialist recommended 7 more days of IV Ceftriaxone at [facility]. Pt is stable to be discharged to rehabilitation facility. - Date & Time of H&P Date of H&P: 05/15/18 Time of H&P: 06:21 Discharge Exam - Additional Findings Additional findings: - Constitutional Appears: No Acute Distress - Head Exam Head Exam: ATRAUMATIC - Eye Exam Eye Exam: EOMI - ENT Exam ENT Exam: Mucous Membranes Moist - Neck Exam Neck Exam: Full ROM, Normal Inspection. absent: Meningismus - Respiratory Exam Respiratory Exam: NORMAL BREATHING PATTERN. absent: Rales, Rhonchi, Wheezes, Respiratory Distress - Cardiovascular Exam Cardiovascular Exam: +S1, +S2 - GI/Abdominal Exam GI & Abdominal Exam: Soft. absent: Guarding, Rigid, Tenderness - Extremities Exam Additional comments: -Right lower extremity: presence of diffuse blanching erythema on lower leg up to mid mid tibial area. There is decreased edema and erythema in comparison with yesterday. SILT. -Left lower ectremity: L hallux ulcer is covered by clean/dry and intact dressing. Discharge Plan - Discharge Medications Prescriptions: cefTRIAXone [Rocephin] 2 gm IVPB DAILY #5 vial Furosemide [Lasix] 40 mg PO DAILY #14 tablet - Follow Up Plan Condition: FAIR Disposition: REHAB FACILITY/REHAB UNIT Instructions: Heart Failure, Adult (DC), Sepsis, Adult (DC), Syncope (Fainting) (DC), Cellulitis (Skin Infection), Adult (DC) Referrals: Pk Ross MD [Staff Provider] -
--- NOTE | 2018-05-24 13:34 | MRI ---
MRI right tibia and fibula HISTORY: Cellulitis. Evaluate for abscess. Comparison: None available. Technique: Multi-echo multiplanar sequences were performed through the right tibia and fibula without the use of intravenous contrast. Findings: Technically limited study secondary to motion artifact. Prominent reticulation, fluid, and edema seen throughout the circumferential subcutaneous soft tissues suggestive for a prominent cellulitis. Prominent reactive increased STIR signal seen within the medial and lateral heads of the gastrocnemius muscle belly suggestive for a myositis in the setting of infection versus partial tearing and or sprain versus additional etiology. Clinical correlation. Moderate to severe fatty atrophy of the medial head of the gastrocnemius muscle belly with moderate fatty atrophy of the soleus muscle belly. Visualized osseous structures demonstrate some mild nonspecific reactive edema at the level of the anterior tubercle. Remainder of the visualized osseous structures appear preserved. Impression: 1. Prominent reticulation, fluid, and edema seen throughout the circumferential subcutaneous soft tissues suggestive for a prominent cellulitis. 2. Prominent reactive increased STIR signal seen within the medial and lateral heads of the gastrocnemius muscle bellies suggestive for a myositis in the setting of infection versus partial tearing and or sprain versus additional etiology. Clinical correlation. 3. Moderate to severe fatty atrophy of the medial head of the gastrocnemius muscle belly with moderate fatty atrophy of the soleus muscle belly. 4. Mild nonspecific reactive edema at the level of the anterior tubercle. Clinical correlation.
== END 2018-05-23 14:30 | DRG 871 ==
LOC: H.ER 12:26 → H.ERHOLD 16:37 → H.TEL 21:21
PROVIDERS: ADMIT Internal Medicine; ATTEND Internal Medicine
PROC: 3E0234Z Introduction of Serum, Toxoid and Vaccine into Muscle, Percutaneous Approach (ICD-10-PCS; principal; 2018-05-15)
PROC: 3E0234Z Introduction of Serum, Toxoid and Vaccine into Muscle, Percutaneous Approach (ICD-10-PCS; 2018-05-18)
DX: A41.9 Sepsis, unspecified organism (principal); I50.21 Acute systolic (congestive) heart failure; L03.115 Cellulitis of right lower limb; T79.6XXA Traumatic ischemia of muscle, initial encounter; A46 Erysipelas; I11.0 Hypertensive heart disease with heart failure; E11.621 Type 2 diabetes mellitus with foot ulcer; L97.521 Non-pressure chronic ulcer of other part of left foot limited to breakdown of skin; F02.80 Dementia in other diseases classified elsewhere, unspecified severity, without behavioral disturbance, psychotic disturbance, mood disturbance, and anxiety; G30.9 Alzheimer's disease, unspecified; B91 Sequelae of poliomyelitis; E78.00 Pure hypercholesterolemia, unspecified; E78.5 Hyperlipidemia, unspecified; G47.30 Sleep apnea, unspecified; G62.89 Other specified polyneuropathies; N40.0 Benign prostatic hyperplasia without lower urinary tract symptoms; R55 Syncope and collapse; S09.90XA Unspecified injury of head, initial encounter; W01.0XXA Fall on same level from slipping, tripping and stumbling without subsequent striking against object, initial encounter; Z23 Encounter for immunization; Z79.82 Long term (current) use of aspirin; Z86.73 Personal history of transient ischemic attack (TIA), and cerebral infarction without residual deficits; Z87.891 Personal history of nicotine dependence; Y92.002 Bathroom of unspecified non-institutional (private) residence as the place of occurrence of the external cause